=== PATIENT | male | born 1980 | race Caucasian/White ===

== ENCOUNTER 2018-06-16 08:36 | Emergency (ER) | payer BC, SELFPAY ==
--- NOTE | 2018-06-16 09:00 | EDPHYS ---
Physician Documentation [facility] Name: Lorne Madison Age: 37 yrs Sex: Male : 1980 Arrival Date: 06/16/2018 Time: 08:40 Bed 13 Private MD: None, None ED Physician Charles Evans HPI: 06/16 08:56 This 37 yrs old Male presents to ER via Unassigned with complaints of Flu nh Symptoms. 08:56 Onset: The symptoms/episode began/occurred 2 week(s) ago, and became persistent. nh Associated signs and symptoms: Pertinent positives: congestion, cough, fever, headache, sore throat. Modifying factors: The patient symptoms are alleviated by nothing, the patient symptoms are aggravated by nothing. The patient has not experienced similar symptoms in the past. The patient has not recently seen a physician. Historical: - Allergies: 08:46 Latex, Natural Rubber; rb1 08:46 Adhesives; rb1 - Home Meds: 08:46 None [Active]; rb1 - PMHx: 08:46 Anxiety; Bipolar disorder; Depression; rb1 - PSHx: 08:46 back; rb1 - Immunization history:: Adult Immunizations up to date. - Social history:: Smoking status: Patient/guardian denies using tobacco. - Ebola Screening: : Patient negative for fever greater than or equal to 101.5 degrees Fahrenheit, and additional compatible Ebola Virus Disease symptoms. ROS: 08:56 Eyes: Negative for injury, pain, redness, and discharge, Neck: Negative for injury, nh pain, and swelling, Cardiovascular: Negative for chest pain, palpitations, and edema, Abdomen/GI: Negative for abdominal pain, nausea, vomiting, diarrhea, and constipation, Back: Negative for injury and pain, : Negative for injury, bleeding, discharge, and swelling, MS/Extremity: Negative for injury and deformity, Skin: Negative for injury, rash, and discoloration, Neuro: Negative for headache, weakness, numbness, tingling, and seizure, Psych: Negative for depression, anxiety, suicide ideation, homicidal ideation, and hallucinations, Allergy/Immunology: Negative for hives, rash, and allergies, Endocrine: Negative for neck swelling, polydipsia, polyuria, polyphagia, and marked weight changes, Hematologic/Lymphatic: Negative for swollen nodes, abnormal bleeding, and unusual bruising. 08:56 Constitutional: Positive for body aches, chills, fatigue, fever. 08:56 ENT: Positive for nasal discharge, Negative for injury or acute deformity, drainage from ear(s), ear pain, foreign body sensation, Gum pain hearing loss, pulling at ears, Teeth pain tinnitus, difficulty swallowing, difficulty handling secretions. 08:56 Respiratory: Positive for cough, with green sputum. Exam: 08:56 Constitutional: This is a well developed, well nourished patient who is awake, alert, nh and in no acute distress. Head/Face: Normocephalic, atraumatic. Eyes: Pupils equal round and reactive to light, extra-ocular motions intact. Lids and lashes normal. Conjunctiva and sclera are non-icteric and not injected. Cornea within normal limits. Periorbital areas with no swelling, redness, or edema. ENT: Nares patent. No nasal discharge, no septal abnormalities noted. Tympanic membranes are normal and external auditory canals are clear. Oropharynx with no redness, swelling, or masses, exudates, or evidence of obstruction, uvula midline. Mucous membranes moist. Neck: Trachea midline, no thyromegaly or masses palpated, and no cervical lymphadenopathy. Supple, full range of motion without nuchal rigidity, or vertebral point tenderness. No Meningismus. Chest/axilla: Normal chest wall appearance and motion. Nontender with no deformity. No lesions are appreciated. Cardiovascular: Regular rate and rhythm with a normal S1 and S2. No gallops, murmurs, or rubs. Normal PMI, no JVD. No pulse deficits. Respiratory: Lungs have equal breath sounds bilaterally, clear to auscultation and percussion. No rales, rhonchi or wheezes noted. No increased work of breathing, no retractions or nasal flaring. Abdomen/GI: Soft, non-tender, with normal bowel sounds. No distension or tympany. No guarding or rebound. No evidence of tenderness throughout. Back: No spinal tenderness. No costovertebral tenderness. Full range of motion. Skin: Warm, dry with normal turgor. Normal color with no rashes, no lesions, and no evidence of cellulitis. MS/ Extremity: Pulses equal, no cyanosis. Neurovascular intact. Full, normal range of motion. Neuro: Awake and alert, GCS 15, oriented to person, place, time, and situation. Cranial nerves II-XII grossly intact. Motor strength 5/5 in all extremities. Sensory grossly intact. Cerebellar exam normal. Normal gait. Psych: Awake, alert, with orientation to person, place and time. Behavior, mood, and affect are within normal limits. Vital Signs: 08:46 BP 125 / 77; Pulse 86; Resp 17; Temp 97.9(O); Pulse Ox 96% on R/A; Weight 70.31 kg (R); rb1 Height 5 ft. 11 in. (180.34 cm) (R); Pain 4/10; 09:24 BP 118 / 78; Pulse 84; Resp 17; Pulse Ox 99% on R/A; rb1 08:46 Body Mass Index 21.62 (70.31 kg, 180.34 cm) rb1 MDM: 08:44 Patient medically screened. az 08:56 Data reviewed: vital signs, nurses notes, I have discussed the patient's az presentation/case with the attending Emergency Department Physician; and as a result, I will discharge patient. Counseling: I had a detailed discussion with the patient and/or guardian regarding: the historical points, exam findings, and any diagnostic results supporting the discharge/admit diagnosis, the need for outpatient follow up, to return to the emergency department if symptoms worsen or persist or if there are any questions or concerns that arise at home. Administered Medications: No medications were administered Disposition: 11:45 Co-signature as Attending Physician, Charles Evans MD. rn Disposition: 06/16/18 08:59 Discharged to Home. Impression: Acute frontal sinusitis. - Condition is Stable. - Prescriptions for Zithromax Z- Percy 250 mg Oral Tablet - take 1 tablet by ORAL route as directed for 5 days Day 1 - take two (2) tablets one time. Day 2, 3, 4 , 5 take one (1) tablet once daily.; 6 tablet. Medrol (Percy) 4 mg Oral Tablets, Dose Pack - take 1 tablet by ORAL route as directed - follow package instructions; 1 packet. - Medication Reconciliation Form, Thank You Letter, Antibiotic Education, Prescription Opioid Use form. - Follow up: Private Physician; When: 2 - 3 days. - Problem is new. - Symptoms are unchanged. Signatures: Bonnie Dang, TRANSPORTATION AGENT TRANSPORTATION AGENT az Evans, Charles, MD MD rn Mckeon, Swapna, RN RN rb1 Corrections: (The following items were deleted from the chart) 09:25 08:59 06/16/2018 08:59 Discharged to Home. Impression: Acute frontal sinusitis. rb1 Condition is Stable. Forms are Medication Reconciliation Form, Thank You Letter, Antibiotic Education, Prescription Opioid Use. Follow up: Private Physician; When: 2 - 3 days. Problem is new. Symptoms are unchanged. nh
--- NOTE | 2018-06-16 09:00 | ER ---
Nurse's Notes [facility] Name: Lorne Madison Age: 37 yrs Sex: Male : 1980 Arrival Date: 06/16/2018 Time: 08:40 Bed 13 Private MD: None, None Diagnosis: Acute frontal sinusitis Presentation: 06/16 08:46 Acuity: NELLIE 3 rb1 08:46 Presenting complaint: Patient states: pt. c/o headache and sinus congestion with yellow rb1 drainage. Transition of care: patient was not received from another setting of care. Onset of symptoms was June 14, 2018. 08:46 Method Of Arrival: Ambulatory rb1 09:06 Risk Assessment: Do you want to hurt yourself or someone else? Patient reports no tw2 desire to harm self or others. Initial Sepsis Screen: Does the patient meet any 2 criteria? No. Patient's initial sepsis screen is negative. Does the patient have a suspected source of infection? No. Patient's initial sepsis screen is negative. Care prior to arrival: None. Triage Assessment: 08:46 General: Appears in no apparent distress. comfortable, Behavior is calm, cooperative, rb1 Denies fever. Pain: Complains of pain in head Pain currently is 4 out of 10 on a pain scale. EENT: Reports nasal congestion nasal discharge that is yellow. Neuro: Level of Consciousness is awake, alert, obeys commands, Oriented to person, place, time, situation. Cardiovascular: Capillary refill < 3 seconds is brisk in bilateral fingers. Respiratory: Airway is patent Respiratory effort is even, unlabored, Respiratory pattern is regular, symmetrical. GI: Reports nausea. : No signs and/or symptoms were reported regarding the genitourinary system. Derm: Skin is pink, warm \T\ dry. Historical: - Allergies: 08:46 Latex, Natural Rubber; rb1 08:46 Adhesives; rb1 - Home Meds: 08:46 None [Active]; rb1 - PMHx: 08:46 Anxiety; Bipolar disorder; Depression; rb1 - PSHx: 08:46 back; rb1 - Immunization history:: Adult Immunizations up to date. - Social history:: Smoking status: Patient/guardian denies using tobacco. - Ebola Screening: : Patient negative for fever greater than or equal to 101.5 degrees Fahrenheit, and additional compatible Ebola Virus Disease symptoms. Screenin:06 Abuse screen: Denies threats or abuse. Nutritional screening: No deficits noted. tw2 Tuberculosis screening: No symptoms or risk factors identified. Fall Risk None identified. Assessment: 08:46 General: see triage assessment. rb1 Vital Signs: 08:46 BP 125 / 77; Pulse 86; Resp 17; Temp 97.9(O); Pulse Ox 96% on R/A; Weight 70.31 kg (R); rb1 Height 5 ft. 11 in. (180.34 cm) (R); Pain 4/10; 09:24 BP 118 / 78; Pulse 84; Resp 17; Pulse Ox 99% on R/A; rb1 08:46 Body Mass Index 21.62 (70.31 kg, 180.34 cm) rb1 ED Course: 08:40 Patient arrived in ED. sb2 08:40 None, None is Private Physician. sb2 08:44 Bon[facility] Dang FNP [facility]. [place] 08:44 Charles Evans MD is Attending Physician. ga 08:46 Swapna Mckeon, RN is Primary Nurse. rb1 08:46 Arm band placed on right wrist. rb1 08:47 Bed in low position. Call light in reach. Pulse ox on. NIBP on. tw2 09:22 Triage completed. rb1 09:23 No provider procedures requiring assistance completed. Patient did not have IV access rb1 during this emergency room visit. Administered Medications: No medications were administered Outcome: 08:59 Discharge ordered by . nh 09:23 Discharged to home ambulatory. rb1 09:23 Condition: stable 09:23 Discharge instructions given to patient, Instructed on discharge instructions, follow up and referral plans. medication usage, Demonstrated understanding of instructions, follow-up care, medications, Prescriptions given X 2. 09:25 Patient left the ED. rb1 Signatures: Bonnie Dang FNP [employer] [place] Swapna Mckeon, RN RN rb1 Zoraida Mills RN RN tw2 Meliza Merritt sb2
== END 2018-06-16 09:25 | disposition home or self-care (01) ==
LOC: ER 08:36
DX: J01.10 Acute frontal sinusitis, unspecified (principal); Z91.040 Latex allergy status; Z91.048 Other nonmedicinal substance allergy status
CPT/HCPCS: 99283

== ENCOUNTER 2018-08-17 21:58 | Emergency (ER) | payer SELFPAY ==
[2018-08-17] MEDS ORDERED: IBUPROFEN 400 MG TAB ONE (22:46)
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
== END 2018-08-17 23:33 | disposition home or self-care (01) ==
LOC: ER 21:58
DX: R07.89 Other chest pain (principal); V43.52XA Car driver injured in collision with other type car in traffic accident, initial encounter; Z91.040 Latex allergy status; Z91.048 Other nonmedicinal substance allergy status
CPT/HCPCS: 71045; 99284

== ENCOUNTER 2018-11-13 13:27 | Emergency (ER) | payer SELFPAY ==
[2018-11-13 14:40] LABS: Absolute Lymphocytes (CBC) 0.5 K/uL (0.7-4.9); Absolute Monocytes 0.5 K/uL (0.1-1.3); Absolute Neutrophil 7.2 K/uL (1.8-8.0); Basophils % 0.2 % (0-1.3); Eosinophils % 0.9 % (0-4.4); Hematocrit 46.7 % (39.6-49.0); Lymphocytes % 6.2 % (15.3-44.8); MPV 10.6 fL (7.6-11.3); Monocytes % 6.2 % (3.3-12.3); Protime INR 1.35; RBC Red Blood Cell Count 5.32 M/uL (4.33-5.43)
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
[2018-11-13 15:02] LABS: ALT/SGPT 17 U/L (12-78); AST/SGOT 13 U/L (15-37); Albumin 3.4 g/dL (3.4-5.0); Alkaline Phosphatase 89 U/L (45-117); BUN Blood Urea Nitrogen 29 mg/dL (7-18); Bicarbonate 28 mmol/L (21-32); Bilirubin Direct 0.2 mg/dL (0-0.2); Glucose Level 99 mg/dL (74-106); Lipase 70 U/L (73-393); Magnesium 2.2 mg/dL (1.8-2.4); NT PRO-BNP 104 pg/mL (<125); Potassium 3.7 mmol/L (3.5-5.1); Protein, Total 8.3 g/dL (6.4-8.2); Sodium Level 140 mmol/L (136-145); Troponin (Emerg Dept Use Only) < 0.02 ng/mL (0.0-0.045)
[2018-11-13 15:11] LABS: Blood Morphology Comment NOT SEEN (NOT SEEN); Platelet Estimate ADEQ; Urine White Blood Cell Casts OK
[2018-11-13] MEDS ORDERED: NA CHLORIDE 0.9% 1,000 ML ONE (15:11)
--- NOTE | 2018-11-13 15:21 | ER ---
Nurse's Notes [facility] Name: Lorne Madison Age: 38 yrs Sex: Male : 1980 Arrival Date: 11/13/2018 Time: 13:29 Bed 26 [facility] MD: Diagnosis: Weakness;Vomiting;Diarrhea, unspecified Presentation: 11/13 13:35 Presenting complaint: Patient states: generalized weakness, nausea, vomiting, and aa5 diarrhea since last night. Reports lower abd pain. Transition of care: patient was not received from another setting of care. 13:35 Method Of Arrival: Ambulatory aa5 13:35 Acuity: NELLIE 3 aa5 13:36 Onset of symptoms was October 2018. Risk Assessment: Do you want to hurt yourself or aa5 someone else? Patient reports no desire to harm self or others. Care prior to arrival: None. 14:13 Initial Sepsis Screen: Does the patient meet any 2 criteria? HR > 90 bpm. No. Patient's ls4 initial sepsis screen is negative. Does the patient have a suspected source of infection? No. Patient's initial sepsis screen is negative. Triage Assessment: 14:13 General: Appears uncomfortable, unkempt, Behavior is calm, cooperative, flat. Pain: ls4 Complains of pain in right lower quadrant and left lower quadrant Pain currently is 6 out of 10 on a pain scale. Historical: - Allergies: 13:36 Adhesives; aa5 13:36 Latex, Natural Rubber; aa5 - PMHx: 13:36 Anxiety; Bipolar disorder; Depression; aa5 - PSHx: 13:36 back; aa5 - Immunization history:: Flu vaccine is not up to date. - Social history:: Smoking status: Patient/guardian denies using tobacco. - Ebola Screening: : No symptoms or risks identified at this time. Screenin:17 Abuse screen: Denies threats or abuse. Denies injuries from another. Nutritional ls4 screening: No deficits noted. Tuberculosis screening: No symptoms or risk factors identified. Fall Risk No fall in past 12 months (0 pts). No secondary diagnosis (0 pts). IV access (20 points). Ambulatory Aid- None/Bed Rest/Nurse Assist (0 pts). Gait- Normal/Bed Rest/Wheelchair (0 pts) Mental Status- Oriented to own ability (0 pts). Assessment: 14:15 General: Appears uncomfortable, unkempt, Behavior is calm, cooperative, flat. Neuro: ls4 Level of Consciousness is awake, alert, obeys commands. Cardiovascular: Capillary refill < 3 seconds Patient's skin is warm and dry. Respiratory: Airway is patent Respiratory effort is even, unlabored, Respiratory pattern is regular. GI: Reports diarrhea. Derm: Skin is intact, Skin is dry, Skin is pale, Skin temperature is warm. Musculoskeletal: Circulation, motion, and sensation intact. Capillary refill < 3 seconds, Range of motion: intact in all extremities. 15:10 Reassessment: No changes from previously documented assessment. Patient and/or family ls4 updated on plan of care and expected duration. Pain level reassessed. Patient is alert, oriented x 3, equal unlabored respirations, skin warm/dry/pink. Vital Signs: 13:37 BP 144 / 80; Pulse 103; Resp 16 S; Temp 98.8(O); Pulse Ox 97% on R/A; Weight 65.32 kg aa5 (R); Height 5 ft. 10 in. (177.80 cm) (R); Pain 6/10; 14:41 BP 120 / 75; Pulse 97; Resp 21; Pulse Ox 98% ; jp3 15:11 BP 121 / 76; Pulse 92; Resp 16; Pulse Ox 99% on R/A; ls4 15:34 BP 122 / 70; Pulse 90; Resp 16; Temp 99.3; Pulse Ox 99% on R/A; Pain 0/10; ls4 13:37 Body Mass Index 20.66 (65.32 kg, 177.80 cm) aa5 ED Course: 13:29 Patient arrived in ED. rg4 13:35 Arm band placed on. aa5 13:36 Triage completed. aa5 13:43 Kris King MD is Attending Physician. [facility] 14:10 Jessica Randall, RN is Primary Nurse. ls4 14:10 Stool sample was collected. jp3 14:15 EKG done, by technician inventory specialist. reviewed by Kris King MD. sm3 14:17 Patient has correct armband on for positive identification. Bed in low position. Call ls4 light in reach. Side rails up X 1. personnel monitor on. Pulse ox on. NIBP on. Warm blanket given. Verbal reassurance given. 14:17 No provider procedures requiring assistance completed. ls4 14:20 Initial lab(s) drawn, by me, sent to lab. Inserted saline lock: 20 gauge in right jp3 antecubital area, using aseptic technique. Blood collected. 14:29 XRAY Chest (1 view) In Process Unspecified. EDMS 14:40 CDIFF Sent. jp3 14:40 Fecal Leukocyte Stain Sent. jp3 14:41 Stool Culture Sent. jp3 14:41 Lipase Sent. jp3 14:41 Basic Metabolic Panel Sent. jp3 14:41 Troponin (emerg Dept Use Only) Sent. jp3 14:41 PT-INR Sent. jp3 14:41 NT PRO-BNP Sent. jp3 14:41 Magnesium Sent. jp3 14:41 LFT's Sent. jp3 14:41 CBC with Diff Sent. jp3 15:38 Diet: Patient given juice. Tolerated well. jp3 15:50 IV discontinued, intact, bleeding controlled, No redness/swelling at site. Pressure ls4 dressing applied. Administered Medications: 14:15 Drug: NS 0.9% 1000 ml Route: IV; Rate: 1 bolus; Site: right antecubital; ls4 15:22 Drug: Zofran 4 mg Route: IVP; Site: right antecubital; ls4 15:49 Follow up: Response: Marked relief of symptoms ls4 Outcome: 15:15 Discharge ordered by . dinora 15:50 Discharged to home ambulatory. ls4 15:50 Condition: stable 15:50 Discharge instructions given to Instructed on Demonstrated understanding of instructions, follow-up care, medications, Prescriptions given X 3. 15:51 Patient left the ED. ls4 Signatures: Dispatcher [employer] EDGA Kris King MD MD cha Calderon, Audri, RN RN aa5 Anali Addison rg4 Karishma Dhaliwal 3 Willie Miramontes jp3 Jessica Randall, RN RN ls4 Corrections: (The following items were deleted from the chart) 13:37 13:35 Presenting complaint: Patient states: generalized weakness, nausea, vomiting, and aa5 diarrhea since last night. Denies pain aa5 16:15 15:34 Temp 99.3F; jp3 ls4
--- NOTE | 2018-11-13 15:21 | EDPHYS ---
Physician Documentation [facility] Name: Lorne Madison Age: 38 yrs Sex: Male : 1980 Arrival Date: 11/13/2018 Time: 13:29 Bed 26 Private MD: ED Physician Kris King HPI: 11/13 14:26 This 38 yrs old Male presents to ER via Ambulatory with complaints of dinora Weakness, Diarrhea. 14:26 This 38 yrs old Male presents to ER via Ambulatory with complaints of dinora Weakness, Diarrhea. 14:26 The patient presents to the emergency department with weakness of the entire body, dinoar generalized weakness. Onset: The symptoms/episode began/occurred 1 day(s) ago. 14:27 The patient presents to the emergency department with nausea, vomiting, diarrhea, that dinora is continuous. Possible causes: unknown. The symptoms are aggravated by food , The symptoms are alleviated by remaining still. Associated signs and symptoms: Pertinent positives: diarrhea, nausea, vomiting. Severity of symptoms: At their worst the symptoms were mild moderate in the emergency department the symptoms are unchanged. The patient has not experienced similar symptoms in the past. Historical: - Allergies: 13:36 Adhesives; aa5 13:36 Latex, Natural Rubber; aa5 - PMHx: 13:36 Anxiety; Bipolar disorder; Depression; aa5 - PSHx: 13:36 back; aa5 - Immunization history:: Flu vaccine is not up to date. - Social history:: Smoking status: Patient/guardian denies using tobacco. - Ebola Screening: : No symptoms or risks identified at this time. ROS: 14:27 Constitutional: Negative for fever, chills, and weight loss, Eyes: Negative for injury, dinora pain, redness, and discharge, ENT: Negative for injury, pain, and discharge, Neck: Negative for injury, pain, and swelling, Cardiovascular: Negative for chest pain, palpitations, and edema, Respiratory: Negative for shortness of breath, cough, wheezing, and pleuritic chest pain, Back: Negative for injury and pain, : Negative for injury, bleeding, discharge, and swelling, MS/Extremity: Negative for injury and deformity, Skin: Negative for injury, rash, and discoloration, Neuro: Negative for headache, weakness, numbness, tingling, and seizure, Psych: Negative for depression, anxiety, suicide ideation, homicidal ideation, and hallucinations, Allergy/Immunology: Negative for hives, rash, and allergies, Endocrine: Negative for neck swelling, polydipsia, polyuria, polyphagia, and marked weight changes, Hematologic/Lymphatic: Negative for swollen nodes, abnormal bleeding, and unusual bruising. 14:27 Abdomen/GI: Positive for nausea and vomiting, nausea, vomiting, diarrhea, of the right upper quadrant, left upper quadrant, right lower quadrant and left lower quadrant. Exam: 14:27 Constitutional: This is a well developed, well nourished patient who is awake, alert, dinora and in no acute distress. Head/Face: Normocephalic, atraumatic. Eyes: Pupils equal round and reactive to light, extra-ocular motions intact. Lids and lashes normal. Conjunctiva and sclera are non-icteric and not injected. Cornea within normal limits. Periorbital areas with no swelling, redness, or edema. ENT: Nares patent. No nasal discharge, no septal abnormalities noted. Tympanic membranes are normal and external auditory canals are clear. Oropharynx with no redness, swelling, or masses, exudates, or evidence of obstruction, uvula midline. Mucous membranes moist. Neck: Trachea midline, no thyromegaly or masses palpated, and no cervical lymphadenopathy. Supple, full range of motion without nuchal rigidity, or vertebral point tenderness. No Meningismus. Chest/axilla: Normal chest wall appearance and motion. Nontender with no deformity. No lesions are appreciated. Cardiovascular: Regular rate and rhythm with a normal S1 and S2. No gallops, murmurs, or rubs. Normal PMI, no JVD. No pulse deficits. Respiratory: Lungs have equal breath sounds bilaterally, clear to auscultation and percussion. No rales, rhonchi or wheezes noted. No increased work of breathing, no retractions or nasal flaring. Back: No spinal tenderness. No costovertebral tenderness. Full range of motion. Male : Normal genitalia with no discharge or lesions. Skin: Warm, dry with normal turgor. Normal color with no rashes, no lesions, and no evidence of cellulitis. MS/ Extremity: Pulses equal, no cyanosis. Neurovascular intact. Full, normal range of motion. Neuro: Awake and alert, GCS 15, oriented to person, place, time, and situation. Cranial nerves II-XII grossly intact. Motor strength 5/5 in all extremities. Sensory grossly intact. Cerebellar exam normal. Normal gait. Psych: Awake, alert, with orientation to person, place and time. Behavior, mood, and affect are within normal limits. 14:27 Abdomen/GI: Inspection: abdomen appears normal, Bowel sounds: normal, Palpation: mild abdominal tenderness, in the right upper quadrant, left upper quadrant, right lower quadrant and left lower quadrant, Liver: no appreciated palpable abnormalities, Hernia: not appreciated. Vital Signs: 13:37 BP 144 / 80; Pulse 103; Resp 16 S; Temp 98.8(O); Pulse Ox 97% on R/A; Weight 65.32 kg aa5 (R); Height 5 ft. 10 in. (177.80 cm) (R); Pain 6/10; 14:41 BP 120 / 75; Pulse 97; Resp 21; Pulse Ox 98% ; jp3 15:11 BP 121 / 76; Pulse 92; Resp 16; Pulse Ox 99% on R/A; ls4 15:34 BP 122 / 70; Pulse 90; Resp 16; Temp 99.3; Pulse Ox 99% on R/A; Pain 0/10; ls4 13:37 Body Mass Index 20.66 (65.32 kg, 177.80 cm) aa5 MDM: 13:44 Patient medically screened. [facility] 14:28 Data reviewed: vital signs, nurses notes, lab test result(s), EKG, radiologic studies, dinora plain films. 11/13 13:57 Order name: Basic Metabolic Panel; Complete Time: 15:05 [facility] 11/13 13:57 Order name: CBC with Diff; Complete Time: 15:13 [facility] 11/13 13:57 Order name: LFT's; Complete Time: 15:05 [facility] 11/13 13:57 Order name: Magnesium; Complete Time: 15:05 [facility] 11/13 13:57 Order name: NT PRO-BNP; Complete Time: 15:05 [facility] 11/13 13:57 Order name: PT-INR; Complete Time: 15:03 [facility] 11/13 13:57 Order name: Troponin (emerg Dept Use Only); Complete Time: 15:05 [facility] 11/13 13:57 Order name: XRAY Chest (1 view); Complete Time: 15:03 [facility] 11/13 13:57 Order name: Lipase; Complete Time: 15:05 [facility] 11/13 13:57 Order name: CDIFF [facility] 11/13 13:57 Order name: Stool Culture [facility] 11/13 13:57 Order name: Fecal Leukocyte Stain [facility] 11/13 14:42 Order name: CBC Smear Scan; Complete Time: 15:13 EDMS 11/13 13:57 Order name: EKG; Complete Time: 13:59 [facility] 11/13 13:57 Order name: Cardiac monitoring; Complete Time: 14:12 [facility] 11/13 13:57 Order name: EKG - Nurse/Tech; Complete Time: 14:12 [facility] 11/13 13:57 Order name: IV Saline Lock; Complete Time: 14:12 [facility] 11/13 13:57 Order name: Labs collected and sent; Complete Time: 14:41 [facility] 11/13 13:57 Order name: O2 Per Protocol; Complete Time: 14:12 [facility] 11/13 13:57 Order name: O2 Sat Monitoring; Complete Time: 14:12 [facility] 11/13 15:13 Order name: PO challenge; Complete Time: 15:49 [facility] Administered Medications: 14:15 Drug: NS 0.9% 1000 ml Route: IV; Rate: 1 bolus; Site: right antecubital; ls4 15:22 Drug: Zofran 4 mg Route: IVP; Site: right antecubital; ls4 15:49 Follow up: Response: Marked relief of symptoms ls4 Disposition: 11/13/18 15:15 Discharged to Home. Impression: Weakness, Vomiting, Diarrhea, unspecified. - Condition is Stable. - Discharge Instructions: Food Choices to Help Relieve Diarrhea, Adult, Nausea and Vomiting, Adult, Weakness, Fatigue, Nausea and Vomiting, Adult, [id number], Weakness, [id number]. - Prescriptions for Bentyl 20 mg Oral Tablet - take 1 tablet by ORAL route every 6 hours As needed; 20 tablet. Pepcid 20 mg Oral Tablet - take 1 tablet by ORAL route every 12 hours for 10 days; 20 tablet. Zofran 4 mg Oral Tablet - take 1 tablet by ORAL route every 12 hours As needed; 20 tablet. - Medication Reconciliation Form, Thank You Letter, Antibiotic Education, Prescription Opioid Use form. - Work release form (11/13/18 15:59). ls4 - Follow up: Private Physician; When: 2 - 3 days; Reason: Recheck today's complaints, Continuance of care, Re-evaluation by your physician. - Problem is new. - Symptoms have improved. Signatures: Dispatcher [employer] [facility] Kris King MD MD cha Calderon, Audri RN RN aa5 Jessica Randall RN RN ls4 Corrections: (The following items were deleted from the chart) 14:01 13:59 Occult Blood+PA.LAB.BRZ ordered. [facility] 15:51 15:15 11/13/2018 15:15 Discharged to Home. Impression: Weakness; Vomiting; Diarrhea, ls4 unspecified. Condition is Stable. Discharge Instructions: Food Choices to Help Relieve Diarrhea, Adult, Nausea and Vomiting, Adult, Weakness, Fatigue, Nausea and Vomiting, Adult, [id number], Weakness, [id number]. Prescriptions for Bentyl 20 mg Oral Tablet - take 1 tablet by ORAL route every 6 hours As needed; 20 tablet, Pepcid 20 mg Oral Tablet - take 1 tablet by ORAL route every 12 hours for 10 days; 20 tablet, Zofran 4 mg Oral Tablet - take 1 tablet by ORAL route every 12 hours As needed; 20 tablet. and Forms are Medication Reconciliation Form, Thank You Letter, Antibiotic Education, Prescription Opioid Use. Follow up: Private Physician; When: 2 - 3 days; Reason: Recheck today's complaints, Continuance of care, Re-evaluation by your physician. Problem is new. Symptoms have improved. dinora
[2018-11-13] MEDS ORDERED: ONDANSETRON 4 MG/2 ML VIAL ONE (15:34)
--- NOTE | 2018-11-14 11:30 | EKG ---
Test Date: 2018-11-13 Test Time: 14:11:28 Trash Man: ALEXIS MEASUREMENT RESULTS: Intervals: Rate: 101 CA: 128 QRSD: 90 QT: 332 QTc: 430 [place]: P: 51 CA: 128 QRS: 90 T: 65 INTERPRETIVE STATEMENTS: Sinus tachycardia Rightward axis Borderline ECG Compared to ECG 09/06/2014 01:37:07 Right-axis deviation now present Sinus rhythm no longer present Electronically Signed On 11-14-18 07:36:53 CDT by Will Bain
== END 2018-11-13 15:51 | disposition home or self-care (01) ==
LOC: ER 13:27
DX: R53.1 Weakness (principal); R11.10 Vomiting, unspecified; R19.7 Diarrhea, unspecified; F41.9 Anxiety disorder, unspecified; F31.9 Bipolar disorder, unspecified; F32.9 Major depressive disorder, single episode, unspecified
CPT/HCPCS: 36415; 71045; 80048; 80076; 83690; 83735; 83880; 84484; 85025; 85610; 87045; 87046; 87493; 89055; 93005; 96374; 99285; J2405; J7030

== ENCOUNTER 2019-07-02 06:31 | Emergency (ER) | payer SELFPAY ==
--- OUTSIDE RECORDS SUMMARY | 2019-07-02 06:33 | XMS REPORT ---
:1980 [facility] Address [address] [place] [address] Dr. Bravo [address] [place] [id number] Care Team Providers Name Role Phone Unavailable Unavailable Unavailable Problems This patient has no known problems. Allergies, Adverse Reactions, Alerts This patient has no known allergies or adverse reactions. Medications This patient has no known medications.
--- NOTE | 2019-07-02 06:51 | EDPHYS ---
Physician Documentation [facility] Name: Lorne Madison Age: 38 yrs Sex: Male : 1980 Arrival Date: 07/02/2019 Time: 06:34 Bed 8 Private MD: ED Physician Zacarias Harrell HPI: 07/02 07:52 This 38 yrs old Male presents to ER via Ambulatory with complaints of Knee snw Pain. 07:52 Onset: The symptoms/episode began/occurred suddenly, today, and became persistent. The snw patient has not experienced similar symptoms in the past. The patient has not recently seen a physician. states knees are sore from climbing so much as work. Historical: - Allergies: 06:44 Adhesives; ea 06:44 Latex, Natural Rubber; ea 06:44 Adhesives; aa1 06:44 Latex, Natural Rubber; aa1 - Home Meds: 06:44 None [Active]; aa1 - PMHx: 06:44 Depression; Bipolar disorder; Anxiety; ea 06:44 Anxiety; Bipolar disorder; Depression; aa1 - PSHx: 06:44 back; ea 06:44 back; aa1 - Immunization history:: Flu vaccine is not up to date. - Social history:: Smoking status: Patient/guardian denies using tobacco. - Ebola Screening: : No symptoms or risks identified at this time. ROS: 07:50 Constitutional: Negative for fever, chills, and weight loss, Eyes: Negative for injury, snw pain, redness, and discharge, ENT: Negative for injury, pain, and discharge, Neck: Negative for injury, pain, and swelling, Cardiovascular: Negative for chest pain, palpitations, and edema, Respiratory: Negative for shortness of breath, cough, wheezing, and pleuritic chest pain, Abdomen/GI: Negative for abdominal pain, nausea, vomiting, diarrhea, and constipation, Back: Negative for injury and pain, : Negative for injury, bleeding, discharge, and swelling, Skin: Negative for injury, rash, and discoloration, Neuro: Negative for headache, weakness, numbness, tingling, and seizure. 07:50 MS/extremity: Positive for bilateral lateral knee pain. Exam: 07:50 Constitutional: This is a well developed, well nourished patient who is awake, alert, snw and in no acute distress. Head/Face: Normocephalic, atraumatic. Eyes: Pupils equal round and reactive to light, extra-ocular motions intact. Lids and lashes normal. Conjunctiva and sclera are non-icteric and not injected. Cornea within normal limits. Periorbital areas with no swelling, redness, or edema. ENT: Nares patent. No nasal discharge, no septal abnormalities noted. Tympanic membranes are normal and external auditory canals are clear. Oropharynx with no redness, swelling, or masses, exudates, or evidence of obstruction, uvula midline. Mucous membranes moist. Neck: Trachea midline, no thyromegaly or masses palpated, and no cervical lymphadenopathy. Supple, full range of motion without nuchal rigidity, or vertebral point tenderness. No Meningismus. Chest/axilla: Normal chest wall appearance and motion. Nontender with no deformity. No lesions are appreciated. Cardiovascular: Regular rate and rhythm with a normal S1 and S2. No gallops, murmurs, or rubs. Normal PMI, no JVD. No pulse deficits. Respiratory: Lungs have equal breath sounds bilaterally, clear to auscultation and percussion. No rales, rhonchi or wheezes noted. No increased work of breathing, no retractions or nasal flaring. Abdomen/GI: Soft, non-tender, with normal bowel sounds. No distension or tympany. No guarding or rebound. No evidence of tenderness throughout. Back: No spinal tenderness. No costovertebral tenderness. Full range of motion. Skin: Warm, dry with normal turgor. Normal color with no rashes, no lesions, and no evidence of cellulitis. MS/ Extremity: Pulses equal, no cyanosis. Neurovascular intact. Full, normal range of motion. Neuro: Awake and alert, GCS 15, oriented to person, place, time, and situation. Cranial nerves II-XII grossly intact. Motor strength 5/5 in all extremities. Sensory grossly intact. Cerebellar exam normal. Normal gait. Psych: Awake, alert, with orientation to person, place and time. Behavior, mood, and affect are within normal limits. Vital Signs: 06:44 BP 128 / 67; Pulse 86; Resp 16; Temp 97.6; Pulse Ox 99% on R/A; Weight 72.57 kg; Height aa1 5 ft. 9 in. (175.26 cm); Pain 410; 06:44 Body Mass Index 23.63 (72.57 kg, 175.26 cm) aa1 MDM: 06:38 Patient medically screened. snw 07:51 Data reviewed: vital signs, nurses notes. Data interpreted: Pulse oximetry: on room air snw is 99 %. Interpretation: normal. Counseling: I had a detailed discussion with the patient and/or guardian regarding: the historical points, exam findings, and any diagnostic results supporting the discharge/admit diagnosis, the need for outpatient follow up, for definitive care, to return to the emergency department if symptoms worsen or persist or if there are any questions or concerns that arise at home. Special discussion: Based on the history and exam findings, there is no indication for further emergent testing or inpatient evaluation. I discussed with the patient/guardian the need to see the primary care provider for further evaluation of the symptoms. Administered Medications: 06:55 Not Given (pt reports he took 800 mg motrin prior to arrival): Motrin 400 mg PO once ea Disposition: 09:35 Co-signature as Attending Physician, Zacarias Harrell MD I agree with the assessment and tw4 plan of care. Disposition: 07/02/19 06:50 Discharged to Home. Impression: Pain in unspecified knee. - Condition is Stable. - Discharge Instructions: Joint Pain, Musculoskeletal Pain, Knee Pain. - Prescriptions for Mobic 7.5 mg Oral Tablet - take 1 tablet by ORAL route once daily take with food; 10 tablet. - Work release form, Medication Reconciliation Form, Thank You Letter, Antibiotic Education, Prescription Opioid Use form. - Follow up: Emergency Department; Reason: Worsening of condition. Follow up: Private Physician; When: 2 - 3 days; Reason: Recheck today's complaints, Continuance of care, Re-evaluation by your physician. Signatures: Bridget Sampson RN RN aa1 Erica Potter, SOUND PRINTER-C SOUND PRINTER-Bkw Mary Izquierdo RN RN ea Wadley, Terrence, MD MD tw4 Corrections: (The following items were deleted from the chart) 07:06 06:50 07/02/2019 06:50 Discharged to Home. Impression: Pain in unspecified knee. ea Condition is Stable. Forms are Medication Reconciliation Form, Thank You Letter, Antibiotic Education, Prescription Opioid Use. Follow up: Emergency Department; Reason: Worsening of condition. Follow up: Private Physician; When: 2 - 3 days; Reason: Recheck today's complaints, Continuance of care, Re-evaluation by your physician. snw
--- NOTE | 2019-07-02 06:51 | ER ---
Nurse's Notes [facility] Name: Lorne Madison Age: 38 yrs Sex: Male : 1980 Arrival Date: 07/02/2019 Time: 06:34 Bed 8 Private MD: Diagnosis: Pain in unspecified knee Presentation: 07/02 06:41 Presenting complaint: Patient states: trupti knee pain since yesterday. Denies injury. aa1 States, "I think it's from going up and down the steps at work so much.". Transition of care: patient was not received from another setting of care. Onset of symptoms was July 01, 2019. Risk Assessment: Do you want to hurt yourself or someone else? Patient reports no desire to harm self or others. Initial Sepsis Screen: Does the patient meet any 2 criteria? No. Patient's initial sepsis screen is negative. Does the patient have a suspected source of infection? No. Patient's initial sepsis screen is negative. Care prior to arrival: None. 06:41 Method Of Arrival: Ambulatory aa1 06:41 Acuity: NELLIE 5 aa1 06:43 Risk Assessment: Do you want to hurt yourself or someone else? Patient reports no ea desire to harm self or others. Initial Sepsis Screen: Does the patient meet any 2 criteria? No. Patient's initial sepsis screen is negative. Does the patient have a suspected source of infection? No. Patient's initial sepsis screen is negative. Care prior to arrival: None. 06:43 Acuity: NELLIE 5 ea Triage Assessment: 06:44 General: Appears in no apparent distress. comfortable, Behavior is calm, cooperative, aa1 appropriate for age. Historical: - Allergies: 06:44 Adhesives; ea 06:44 Latex, Natural Rubber; ea 06:44 Adhesives; aa1 06:44 Latex, Natural Rubber; aa1 - Home Meds: 06:44 None [Active]; aa1 - PMHx: 06:44 Depression; Bipolar disorder; Anxiety; ea 06:44 Anxiety; Bipolar disorder; Depression; aa1 - PSHx: 06:44 back; ea 06:44 back; aa1 - Immunization history:: Flu vaccine is not up to date. - Social history:: Smoking status: Patient/guardian denies using tobacco. - Ebola Screening: : No symptoms or risks identified at this time. Screenin:42 Abuse screen: Denies threats or abuse. Nutritional screening: No deficits noted. ea Tuberculosis screening: No symptoms or risk factors identified. Fall Risk None identified. Assessment: 06:41 General: Appears uncomfortable, Behavior is appropriate for age. Pain: Complains of ea pain in right knee and left knee. Neuro: Level of Consciousness is awake, alert, obeys commands, Oriented to person, place, time, situation. Cardiovascular: Patient's skin is warm and dry. Respiratory: Airway is patent Respiratory effort is even, unlabored, Respiratory pattern is regular, symmetrical. Derm: Skin is pink, warm \\T\\ dry. 07:04 Reassessment: Patient and/or family updated on plan of care and expected duration. Pain ea level reassessed. Patient is alert, oriented x 3, equal unlabored respirations, skin warm/dry/pink. Discharge instruction given to patient, verbalized the understanding of instruction. Pt left ED ambulatory. pt tolerating well. Vital Signs: 06:44 BP 128 / 67; Pulse 86; Resp 16; Temp 97.6; Pulse Ox 99% on R/A; Weight 72.57 kg; Height aa1 5 ft. 9 in. (175.26 cm); Pain 4/10; 06:44 Body Mass Index 23.63 (72.57 kg, 175.26 cm) aa1 ED Course: 06:34 Patient arrived in ED. ds1 06:37 Erica Potter FNP-C [facility]. snw 06:38 Zacarias Harrell MD is Attending Physician. snw 06:38 Petr Sanabria RN is Primary Nurse. rv 06:42 Patient has correct armband on for positive identification. Bed in low position. Call ea light in reach. 06:43 Triage completed. ea 06:43 Arm band placed on right wrist. Patient placed in an exam room, on a stretcher, on ea pulse oximetry. 07:05 No provider procedures requiring assistance completed. Patient did not have IV access ea during this emergency room visit. Administered Medications: 06:55 Not Given (pt reports he took 800 mg motrin prior to arrival): Motrin 400 mg PO once ea Outcome: 06:50 Discharge ordered by . snw 07:05 Discharged to home ambulatory. ea 07:05 Condition: stable 07:05 Discharge instructions given to patient, Instructed on discharge instructions, follow up and referral plans. medication usage, Demonstrated understanding of instructions, follow-up care, medications. 07:06 Patient left the ED. ea Signatures: Bridget Sampson, RN RN aa1 Erica Potter, HELP DESK ANALYST-C HELP DESK ANALYST-Csnw Myra Pettit ds1 Mary Izquierdo RN RN ea Petr Sanabria RN RN rv
[2019-07-02] MEDS ORDERED: IBUPROFEN 400 MG TAB ONE (06:54)
[2019-07-02 09:05] VITALS: BP 128/67; TEMP 97.6; O2SAT 99
== END 2019-07-02 07:06 | disposition home or self-care (01) ==
LOC: ER 06:31
DX: M25.561 Pain in right knee (principal); M25.562 Pain in left knee; Z91.040 Latex allergy status
CPT/HCPCS: 99283

== ENCOUNTER 2020-03-03 21:32 | Emergency (ER) | payer OTHER, SELFPAY ==
--- NOTE | 2020-03-03 22:09 | ER ---
Nurse's Notes [facility] Name: Lorne Madison Age: 39 yrs Sex: Male : 1980 Arrival Date: 03/03/2020 Time: 21:34 Bed 19 Private MD: Diagnosis: Urethritis and urethral syndrome Presentation: 03/03 21:38 Chief complaint: Patient states: Reports foul odor from penile area for 1 month. Brown, ll1 sore spot on tip of penis noticed today. No dysuria. No fever. Coronavirus screen: Client denies travel out of the [place] in the last 14 days. At this time, the client does not indicate any symptoms associated with coronavirus-19. Ebola Screen: Patient denies travel to an Ebola-affected area in the 21 days before illness onset. Initial Sepsis Screen: Does the patient meet any 2 criteria? No. Patient's initial sepsis screen is negative. Risk Assessment: Do you want to hurt yourself or someone else? Patient reports no desire to harm self or others. Onset of symptoms was January 31, 2020. 21:38 Method Of Arrival: Ambulatory ll1 21:38 Acuity: NELLIE 3 ll1 Historical: - Allergies: 21:40 Latex, Natural Rubber; ll1 21:40 Adhesives; ll1 - PMHx: 21:40 Anxiety; Bipolar disorder; Depression; scoliosis; ll1 - PSHx: 21:40 back; ll1 - Immunization history:: Flu vaccine is not up to date. - Social history:: Smoking status: Patient denies any tobacco usage or history of. Patient/guardian denies using alcohol, street drugs. Screenin:45 Abuse screen: Denies threats or abuse. Nutritional screening: No deficits noted. jb4 Tuberculosis screening: No symptoms or risk factors identified. Fall Risk None identified. Assessment: 21:45 General: Appears in no apparent distress. uncomfortable, Behavior is calm, cooperative, jb4 appropriate for age. Pain: Complains of pain in groin Pain does not radiate. Pain currently is 1 out of 10 on a pain scale. Quality of pain is described as burning, itching. Neuro: Level of Consciousness is awake, alert, obeys commands, Oriented to person, place, time, situation. Cardiovascular: Respiratory: Airway is patent Respiratory effort is even, unlabored, Respiratory pattern is regular, symmetrical. GI: No signs and/or symptoms were reported involving the gastrointestinal system. : No signs and/or symptoms were reported regarding the genitourinary system. EENT: No signs and/or symptoms were reported regarding the EENT system. Derm: Skin is intact, Skin is pink, warm \T\ dry. lesions noted to the head of the penis. Musculoskeletal: Circulation, motion, and sensation intact. Range of motion: intact in all extremities. 22:30 Reassessment: Patient appears in no apparent distress at this time. Patient and/or jb4 family updated on plan of care and expected duration. Pain level reassessed. Patient is alert, oriented x 3, equal unlabored respirations, skin warm/dry/pink. Pt verbalized understanding of d/c and follow up instructions. Denies questions or concerns. Ambulated out of ED with steady gait. Vital Signs: 21:38 BP 128 / 89; Pulse 83; Resp 17; Temp 98.1; Pulse Ox 98% ; Pain 1/10; ll1 ED Course: 21:34 Patient arrived in ED. cf2 21:39 Triage completed. ll1 21:40 Arm band placed on. ll1 21:45 Patient has correct armband on for positive identification. Bed in low position. Call jb4 light in reach. Side rails up X 1. 21:47 Ascencion Cheatham, ELSIE is Primary Nurse. jb4 22:06 Zacarias Harrell MD is Attending Physician. tw4 22:30 No provider procedures requiring assistance completed. Patient did not have IV access jb4 during this emergency room visit. Administered Medications: No medications were administered Outcome: 22:08 Discharge ordered by . tw4 22:30 Discharged to home ambulatory. jb4 22:30 Condition: stable 22:30 Discharge instructions given to patient, Instructed on discharge instructions, follow up and referral plans. medication usage, Demonstrated understanding of instructions, follow-up care, medications, Prescriptions given X 2. 22:37 Patient left the ED. mw2 Signatures: Ascencion Cheatham, RN ELSIE [facility] Zacarias Harrell MD MD 4 Daniel Davis mw2 Ly Strong 2 Sal Vicente RN RN ll1 Corrections: (The following items were deleted from the chart) 03/04 00:04 03/03 22:30 Reassessment: Patient appears in no apparent distress at this time. Patient jb4 and/or family updated on plan of care and expected duration. Pain level reassessed. Patient is alert, oriented x 3, equal unlabored respirations, skin warm/dry/pink. jb4
[2020-03-03 22:45] VITALS: BP 128/89; TEMP 98.1; O2SAT 98
--- NOTE | 2020-03-04 22:37 | EDPHYS ---
Physician Documentation [facility] Name: Lorne Madison Age: 39 yrs Sex: Male : 1980 Arrival Date: 03/03/2020 Time: 21:34 Bed 19 Private MD: ED Physician Zacarias Harrell HPI: 03/04 06:47 This 39 yrs old Male presents to ER via Ambulatory with complaints of Groin tw4 Pain. 06:47 The patient presents with urinary symptoms, dysuria. Onset: The symptoms/episode tw4 began/occurred yesterday. Modifying factors: The symptoms are alleviated by nothing, the symptoms are aggravated by nothing. Associated signs and symptoms: The patient has no apparent associated signs or symptoms. Severity of symptoms: At their worst the symptoms were moderate, in the emergency department the symptoms are unchanged. The patient has not experienced similar symptoms in the past. Historical: - Allergies: 03/03 21:40 Latex, Natural Rubber; ll1 21:40 Adhesives; ll1 - PMHx: 21:40 Anxiety; Bipolar disorder; Depression; scoliosis; ll1 - PSHx: 21:40 back; ll1 - Immunization history:: Flu vaccine is not up to date. - Social history:: Smoking status: Patient denies any tobacco usage or history of. Patient/guardian denies using alcohol, street drugs. ROS: 03/04 06:47 Constitutional: Negative for fever, chills, and weight loss, Eyes: Negative for injury, tw4 pain, redness, and discharge, Cardiovascular: Negative for chest pain, palpitations, and edema, Respiratory: Negative for shortness of breath, cough, wheezing, and pleuritic chest pain, Abdomen/GI: Negative for abdominal pain, nausea, vomiting, diarrhea, and constipation, Back: Negative for injury and pain. : Positive for penile discharge. Exam: 06:47 Constitutional: This is a well developed, well nourished patient who is awake, alert, tw4 and in no acute distress. Head/Face: Normocephalic, atraumatic. Chest/axilla: Normal chest wall appearance and motion. Nontender with no deformity. No lesions are appreciated. Cardiovascular: Regular rate and rhythm with a normal S1 and S2. No gallops, murmurs, or rubs. Normal PMI, no JVD. No pulse deficits. Respiratory: Lungs have equal breath sounds bilaterally, clear to auscultation and percussion. No rales, rhonchi or wheezes noted. No increased work of breathing, no retractions or nasal flaring. Abdomen/GI: Soft, non-tender, with normal bowel sounds. No distension or tympany. No guarding or rebound. No evidence of tenderness throughout. 06:47 : Male external genitalia: lesion, of the head of penis, painless, penile discharge, white. Vital Signs: 03/03 21:38 BP 128 / 89; Pulse 83; Resp 17; Temp 98.1; Pulse Ox 98% ; Pain 1/10; ll1 MDM: 22:08 Patient medically screened. tw4 03/04 06:47 Differential diagnosis: nonspecific abdominal pain, appendicitis, urinary retention, tw4 prostatitis, urethritis. Data reviewed: vital signs, nurses notes. Data interpreted: Pulse oximetry: Interpretation: normal. Counseling: I had a detailed discussion with the patient and/or guardian regarding: the historical points, exam findings, and any diagnostic results supporting the discharge/admit diagnosis, lab results. Special discussion: I discussed with the patient/guardian in detail that at this point there is no indication for admission to the hospital. It is understood, however, that if the symptoms persist or worsen the patient needs to return immediately for re-evaluation. Administered Medications: No medications were administered Disposition: 06:54 Chart complete. tw Disposition: 03/03/20 22:08 Discharged to Home. Impression: Urethritis and urethral syndrome. - Condition is Stable. - Discharge Instructions: Urethritis, Adult. - Prescriptions for Cipro 500 mg Oral Tablet - take 1 tablet by ORAL route one time for 1 day; 1 tablet. Zithromax 1 gram Oral Packet - take 1 packet by ORAL route one time as a single dose; 1 packet. - Medication Reconciliation Form, Thank You Letter, Antibiotic Education, Prescription Opioid Use form. - Follow up: Private Physician; When: Upon discharge from the Emergency Department; Reason: Recheck today's complaints, Continuance of care, Re-evaluation by your physician. - Problem is new. - Symptoms have improved. Signatures: Zacarias Harrell MD MD tw4 Daniel Davis 2 Sal Vicente RN RN ll1 Corrections: (The following items were deleted from the chart) 03/03 22:37 22:08 03/03/2020 22:08 Discharged to Home. Impression: Urethritis and urethral mw2 syndrome. Condition is Stable. Forms are Medication Reconciliation Form, Thank You Letter, Antibiotic Education, Prescription Opioid Use. Follow up: Private Physician; When: Upon discharge from the Emergency Department; Reason: Recheck today's complaints, Continuance of care, Re-evaluation by your physician. Problem is new. Symptoms have improved. tw4
== END 2020-03-03 22:37 | disposition home or self-care (01) ==
LOC: ER 21:32
DX: N34.3 Urethral syndrome, unspecified (principal); N34.2 Other urethritis; Z91.040 Latex allergy status; Z91.048 Other nonmedicinal substance allergy status
CPT/HCPCS: 99282

== ENCOUNTER 2020-03-10 17:21 | Emergency (ER) | payer OTHER, SELFPAY ==
--- OUTSIDE RECORDS SUMMARY | 2020-03-10 17:23 | XMS REPORT | Summary of Care ---
:1980 Author Organization [facility] - [facility] Address [address] [place] [address] Care Team Providers Name Role Phone Aditya Jean Primary Care Provider Reason for Visit Reason Comments Other penile discharge Auth/Cert Status Reason Specialty Diagnoses / Referred By Referred To Procedures Contact Contact Emergency Medicine Adc Em ergency Dept [address] [place] [address] Fax: Encounter Details Date Type Department Care Team Description 03/05/2020 Emergency ADC-Emergency Portillo, Cynthia R, Penile abr asion, Department EMNP initial encounter [address] [facility] [address] moya [address] [place] [address] (Primary Dx) [place] [address] [id number] [place], [place] [address] Allergies Active Allergy Reactions Severity Noted Date Comments Adhesive Rash 03/27/2016 Latex Rash 03/27/2016 documented as of this encounter (statuses as of 03/05/2020) Medications Medication Sig Dispensed Refills Start Date End Date Status divalproex (DEPAKOTE) Take 1,500 mg by 0 Active 500 mg EC mouth. tabletIndications: at Indications: at bedtime bedtime clindamycin 300 mg Take 1 capsule by 21 capsule 0 03/12/2019 Active capsuleIndications: mouth 3 (three) Chronic upper back times daily. pain, Abscess of upper back excluding scapular region ibuprofen 800 mg Take 1 tablet by 21 tablet 0 03/12/2019 Active tabletIndications: mouth every 8 Chronic upper back (eight) hours as pain, Abscess of upper needed for Pain back excluding (scale 4-6) or scapular region Temp > 38.5 C. mupirocin 2 % Apply to area(s) 22 g 0 03/05/2020 Active ointmentIndications: 3 (three) times Penile abrasion, daily. initial encounter documented as of this encounter (statuses as of 03/05/2020) Active Problems No known active problemsdocumented as of this encounter (statuses as of 03/05/2020) Social History Tobacco Use Types Packs/Day Years Used Date Never Assessed Sex Assigned at Date Recorded Not on file COVID-19 Exposure Response Date Recorded In the last month, have you been in contact with No / Unsure 03/05/2020 2:12 PM CDT someone who was confirmed or suspected to have Coronavirus / COVID-19? documented as of this encounter Last Filed Vital Signs Vital Sign Reading Time Taken Comments Blood Pressure 131/63 03/05/2020 2:14 PM CDT Pulse 88 03/05/2020 2:14 PM CDT Temperature 37.2 C (99 F) 03/05/2020 2:14 PM CDT Respiratory Rate 16 03/05/2020 2:14 PM CDT Oxygen Saturation 98% 03/05/2020 2:14 PM CDT Inhaled Oxygen Concentration - - Weight 75.3 kg (166 lb) 03/05/2020 2:14 PM CDT Height 177.8 cm (5' 10") 03/05/2020 2:14 PM CDT Body Mass Index 23.82 03/05/2020 2:14 PM CDT documented in this encounter Discharge Instructions Cynthia Pickard EMNP - 03/05/2020NO LIFE-THREATENING FINDINGS ON TODAY'S EXAM. SPECIAL INSTRUCTIONS: 1. Cleanse genital area well with soap and water 2. Apply ointment as directed 3. See attached information 4. Return for worsening condition FOLLOW-UP RECOMMENDATIONS: RECOMMEND FOLLOW-UP WITH A PRIMARY CARE PROVIDER OR SPECIALIST IN 2-5 DAYS, ESPECIALLY IF NO IMPROVEMENT IN SYMPTOMS. TO FOLLOW-UP WITHIN THE [facility], TRY THESE OPTIONS (CLINIC APPOINTMENTS AVAILABLE ON [id number] BASIS): 1. SCHEDULE AN APPOINTMENT ONLINE AT WWW.[facility] 2. OR CALL THE [facility] AT OR 3. OR CALL YOUR [facility] PHYSICIAN'S OFFICE DIRECTLY IF YOU ARE ALREADY AN ESTABLISHED [facility] PATIENT. OR, YOU MAY FOLLOW-UP WITH A PROVIDER OF YOUR CHOICE, SUCH : 1. A PHYSICIAN OF YOUR CHOICE 2. [facility], . LOCATIONS IN [facility] 3. [facility], [address] [place], [place]; [phone] RETURN TO ER FOR WORSENING OF SYMPTOMS. AttachmentsThe following attachments cannot be sent through Care Everywhere. Abrasions (Lithuanian)Mupirocin skin cream or ointment (Lithuanian)documented in this encounter ED Notes Ana Cristina Torrez RN - 03/05/2020 2:13 PM CDTPatient states: "I have discharge and a infection type smell and a spot on my area" Reports symptomssmelling started a month ago, I noticed the spot 2 days ago. Pmhx: none Reports being sexually active with girlfriend, been together for 8 months. No other partners. documented in this encounter Miscellaneous Notes ED Nurse Note - Pily Lujan RN - 03/05/2020 4:30 PM CDTPt given printed and verbal discharge instructions regarding penile abrasion, encouraged hydration, Prescriptions provided: Mupirocin ointment Pt verbalized understanding of instructions, pt awake alert oriented, resp reg unlabored, skin w/d, color appropriate for race, moves all ext well,pt encouraged to follow up with PCP. Advised to seek medical attention for new/prolonged/worsening of symptoms, Symptoms stable Awake, alert oriented, resp reg unlabored, skin w/d, pt leaving amb with steady gait, in no apparent distress, documented in this encounter Plan of Treatment Name Type Priority Associated Diagnoses Order S chedule [facility] Routine Penile abrasion, initial O NCE for 1 Occurrences AMPLIFIED ASSAY encounter starting until 0 Health Maintenance Due Date Last Done Comments VARICELLA VACCINES (1 of 2 - 10/27/1983 2-dose childhood series) Depression Screening 1994 DTaP,Tdap,and Td Vaccines (1 - 2001 Tdap) INFLUENZA VACCINE (#1) 2020 PNEUMOCOCCAL 0-64 YEARS COMBINED Aged Out No longer eligible based on SERIES patient's age to complete this topic documented as of this encounter Procedures Procedure Name Priority Date/Time Associated Diagnosis Comme nts URINALYSIS STAT 03/05/2020 3:10 PM Penile abrasion, Resu lts for this CDT initial encounter procedure are in the results section . documented in this encounter Results URINALYSIS (03/05/2020 3:10 PM CDT) Pathologist Sig nature APPEARANCE Hazy (A) Clear [facility] COLOR Yellow Yellow [facility] PH 6.0 4.8 - 8.0 [facility] SP GRAVITY 1.025 1.003 - 1.030 [facility] GLU U QUAL Normal Normal [facility] BLOOD Negative Negative [facility] KETONES Negative Negative [facility] PROTEIN Negative Negative [facility] UROBILIN 4.0 mg/dL (A) Normal [facility] BILIRUBIN Negative Negative [facility] NITRITE Negative Negative [facility] LEUK SAVANNAH Negative Negative [facility] RBC/HPF 1 0 - 3 HPF [facility] WBC/HPF 1 0 - 5 HPF [facility] BACTERIA Few (A) Negative [facility] MUCOUS Moderate (A) Negative LPF [facility] Specimen Urine - URINE, CLEAN CATCH Performing Organization Address City/State/Zipcode Phone Number [facility] CLIA: [id number] [place] [address] documented in this encounter Visit Diagnoses Diagnosis Penile abrasion, initial encounter - Jane chew documented in this encounter
--- OUTSIDE RECORDS SUMMARY | 2020-03-10 17:23 | XMS REPORT | Summary of Care ---
:1980 Author Organization [facility] - Health Address [address] [place] [address] Care Team Providers Name Role Phone Pcp, Does Not Have A Primary Care Provider Encounter Details Date Type Department Care Team Description 03/05/2020 Orders Only [facility] Doctor Unassigned, No [address] [facility] [place] [address] [address] [place] [address] Allergies Active Allergy Reactions Severity Noted Date [...] or scapular region Temp > 38.5 C. documented as of this encounter (statuses as of 03/05/2020) Active Problems No known active problemsdocumented as of this encounter (statuses as of 03/05/2020) Social History Tobacco Use Types Packs/Day Years Used Date Never Assessed Sex Assigned at Date Recorded Not on file documented as of this encounter Last Filed Vital Signs Not on filedocumented in this encounter Plan of Treatment Health Maintenance Due Date Last Done Comments VARICELLA VACCINES (1 of 2 - 10/27/1983 2-dose childhood series) Depression Screening 1994 DTaP,Tdap,and Td Vaccines (1 - 2001 Tdap) INFLUENZA VACCINE (#1) 2020 PNEUMOCOCCAL 0-64 YEARS COMBINED Aged Out No longer eligible based on SERIES patient's age to complete this topic documented as of this encounter Procedures Procedure Name Priority Date/Time Associated Diagnosis Comme nts CONSENT/REFUSAL FOR Routine 03/05/2020 2:07 PM CDT DIAGNOSIS AND TREATMENT documented in this encounter Results Not on filedocumented in this encounter
--- OUTSIDE RECORDS SUMMARY | 2020-03-10 17:23 | XMS REPORT | Continuity of Care Document ---
:1980 Author Organization [facility] t Address [address] [place] [address] Care Team Providers Name Role Phone Lindsey HARLEY Rik Attending Clinician Doctor Unassigned, Name Attending Clinician Unavailable Problems This patient has no known problems. Allergies, Adverse Reactions, Alerts This patient has no known allergies or adverse reactions. Medications This patient has no known medications. Procedures This patient has no known procedures. Encounters Start End Encounter Admission Attending Care Care Encounter Source Date/Time Date/Time Type Type Clinicians Facility Department ID 2020-03-05 2020-03-05 Emergency [facility] [id number] 14:19:00 16:31:00 Cynthia Zepeda [id number] [place] [id number] [place] [id number] 2020-03-05 2020-03-05 Orders Doctor JAY JAY [id number] 00:00:00 00:00:00 Only UnassignedLUDIN [id number] [place] [id number] Results This patient has no known results.
== END 2020-03-10 18:12 | disposition left against medical advice (07) ==
LOC: ER 17:21
DX: Z02.9 Encounter for administrative examinations, unspecified (principal)

== ENCOUNTER 2020-03-13 07:58 | Emergency (ER) | payer SELFPAY ==
--- OUTSIDE RECORDS SUMMARY | 2020-03-13 08:00 | XMS REPORT | Continuity of Care Document ---
:1980 Author Organization [facility] t Address [address] [place] [place] [address] Care Team Providers Name Role Phone Mor CHAMBERLAIN Attending Clinician Rik Spencer Attending Clinician Doctor Unassigned, Name Attending Clinician Unavailable Problems This patient has no known problems. Allergies, Adverse Reactions, Alerts This patient has no known allergies or adverse reactions. Medications This patient has no known medications. Procedures This patient has no known procedures. Encounters Start End Encounter Admission Attending Care Care Encounter Source Date/Time Date/Time Type Type Clinicians Facility Department ID 2020-03-11 2020-03-11 [facility] [id number] 14:22:00 17:14:00 Heriberto Zepeda [id number] [place] [id number] [place] [address] [id number] 2020-03-05 2020-03-05 [facility] [id number] 14:19:00 16:31:00 Cynthia Zepeda [id number] [place] [id number] [place] [address] [id number] 2020-03-05 2020-03-05 Orders Doctor GOYAL [id number] 00:00:00 00:00:00 Only UnassLUDIN espinosa [id number] [place] [facility] [id number] Results This patient has no known results.
--- OUTSIDE RECORDS SUMMARY | 2020-03-13 08:01 | XMS REPORT | Summary of Care ---
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 initial encounter mupirocin 2 % Apply to area(s) 22 g 0 03/11/2020 Active ointmentIndications: 3 (three) times Folliculitis, Taenia daily. infection clotrimazole 1 % Apply to area(s) 30 g 0 03/11/2020 Active topical 2 (two) times creamIndications: daily. Folliculitis, Taenia infection documented as of this encounter (statuses as of 03/11/2020) Active Problems No known active problemsdocumented as of this encounter (statuses as of 03/11/2020) Social History Tobacco Use Types Packs/Day Years Used Date Never Assessed Sex Assigned at Date Recorded Not on file COVID-19 Exposure Response Date Recorded In the last month, have you been in contact with No / Unsure 03/11/2020 4:38 PM CDT someone who was confirmed or suspected to have Coronavirus / COVID-19? documented as of this encounter Last Filed Vital Signs Vital Sign Reading Time Taken Comments Blood Pressure 120/66 03/11/2020 4:19 PM CDT Pulse 89 03/11/2020 4:19 PM CDT Temperature 36.6 C (97.8 F) 03/11/2020 2:21 PM CDT Respiratory Rate 20 03/11/2020 4:19 PM CDT Oxygen Saturation 100% 03/11/2020 4:19 PM CDT Inhaled Oxygen Concentration - - Weight 75.3 kg (166 lb) 03/11/2020 2:21 PM CDT Height - - Body Mass Index 23.82 03/05/2020 2:14 PM CDT documented in this encounter Discharge Instructions Heriberto Hays FNP - 03/11/2020DIAGNOSIS 1. Folliculitis 2. Possible tenia infection of left inner thigh NO LIFE-THREATENING FINDINGS ON TODAY'S EXAM. PROCEDURES IN THE ER TODAY: None MEDICATIONS ADMINISTERED IN THE ER TODAY: None YOUR PRESCRIPTIONS AND [id number] MEDICATION RECOMMENDATIONS: Mupirocin Clotrimazole SPECIAL CARE INSTRUCTIONS: keep the area clean and dry Wear loose fitting cotton underwear to avoid skin irritation FOLLOW-UP RECOMMENDATIONS: RECOMMEND FOLLOW-UP WITH A PRIMARY CARE PROVIDER IN 2-5 DAYS, ESPECIALLY IF NO IMPROVEMENT IN SYMPTOMS. TO FOLLOW-UP WITHIN THE [facility], TRY THESE OPTIONS (CLINIC APPOINTMENTS AVAILABLE ON [id number] BASIS): 1. SCHEDULE AN APPOINTMENT ONLINE AT WWW.[facility] 2. OR CALL THE [facility]ESS [facility] AT OR 3. OR CALL YOUR [facility] PHYSICIAN'S OFFICE DIRECTLY IF YOU ARE ALREADY AN ESTABLISHED [facility] PATIENT. OR, YOU MAY FOLLOW-UP WITH A PROVIDER OF YOUR CHOICE, SUCH : 1. A PHYSICIAN OF YOUR CHOICE 2. [facility], . LOCATIONS IN [facility] 3. [facility], [address] [place] [address]; [phone] RETURN TO ER FOR WORSENING OF SYMPTOMS. AttachmentsThe following attachments cannot be sent through Care Everywhere. Folliculitis (Maltese)Folliculitis, Understanding (Maltese)documented in this encounter ED Notes Sarah Hernández RN - 03/11/2020 2:19 PM CDT39 year old male coming to the ER for left upper thigh pain. Possible abscess. Patient reports drainage and smell coming from upper thigh. On the left leg. Onset today. documented in this encounter Miscellaneous Notes ED Nurse Note - Sarah Hernández RN - 03/11/2020 4:19 PM CDTDischarge instructions/prscribed medications reviewed with pt with verbalized understanding. NAD, respirations even and unlabored, AOX4, ambulatory out of ED with a steady gait. documented in this encounter Plan of Treatment Health Maintenance Due Date Last Done Comments VARICELLA VACCINES (1 of 2 - 10/27/1983 2-dose childhood series) Depression Screening 1994 DTaP,Tdap,and Td Vaccines (1 - 2001 Tdap) INFLUENZA VACCINE (#1) 2020 PNEUMOCOCCAL 0-64 YEARS COMBINED Aged Out No longer eligible based on SERIES patient's age to complete this topic documented as of this encounter Results Not on filedocumented in this encounter Visit Diagnoses Diagnosis Folliculitis - Primary Other specified disease of hair and hair follicles Taenia infection Taeniasis, unspecified documented in this encounter
[2020-03-13] MEDS ORDERED: AMOX/K CLAV 875 MG TAB ONE (09:00)
[2020-03-13] MEDS ORDERED: TETANUS & DIPHTHERIA TOX,ADULT 0.5 ML VIAL ONE (09:00)
[2020-03-13] MEDS ORDERED: HYDROCODONE/APAP 5/325 MG TAB ONE (09:13)
[2020-03-13] MEDS ORDERED: LIDOCAINE 1% MPF 5 ML VIAL ONE (10:11)
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
[2020-03-13 11:21] VITALS: BP 111/78; TEMP 97.8; O2SAT 99
== END 2020-03-13 11:15 | disposition home or self-care (01) ==
LOC: ER 07:58
PROC: 0HQ3XZZ Repair Left Ear Skin, External Approach (ICD-10-PCS; principal; 2020-03-13)
DX: S01.312A Laceration without foreign body of left ear, initial encounter (principal); W50.3XXA Accidental bite by another person, initial encounter; Y93.89 Activity, other specified; Y92.9 Unspecified place or not applicable; Z91.040 Latex allergy status; Z91.048 Other nonmedicinal substance allergy status
CPT/HCPCS: 90471; 90714; 99284

== ENCOUNTER 2020-03-18 21:03 | Emergency (ER) | payer SELFPAY ==
--- NOTE | 2020-03-18 23:41 | ER ---
Nurse's Notes [facility] Name: Lorne Madison Age: 39 yrs Sex: Male : 1980 Arrival Date: 03/18/2020 Time: 21:04 Bed 30 Private MD: Diagnosis: Encounter for removal of sutures Presentation: 03/18 21:31 Chief complaint: Patient states: Here for left ear suture removal. No fever at home. ll1 Slight redness noted. Coronavirus screen: Client denies travel out of the [place] in the last 14 days. At this time, the client does not indicate any symptoms associated with coronavirus-19. Ebola Screen: Patient denies travel to an Ebola-affected area in the 21 days before illness onset. Initial Sepsis Screen: Does the patient meet any 2 criteria? No. Patient's initial sepsis screen is negative. Risk Assessment: Do you want to hurt yourself or someone else? Patient reports no desire to harm self or others. Onset of symptoms is unknown. 21:31 Method Of Arrival: Ambulatory ll1 21:31 Acuity: NELLIE 4 ll1 Historical: - Allergies: 21:33 Adhesives; ll1 21:33 Latex, Natural Rubber; ll1 - PMHx: 21:33 Anxiety; Bipolar disorder; Depression; scoliosis; ll1 - Immunization history:: Last tetanus immunization: up to date Flu vaccine is not up to date. - Social history:: Smoking status: Patient denies any tobacco usage or history of. Screenin:56 Abuse screen: Denies threats or abuse. Denies injuries from another. Nutritional aj1 screening: No deficits noted. Tuberculosis screening: No symptoms or risk factors identified. 23:51 Fall Risk None identified. aj1 Assessment: 21:56 General: Appears in no apparent distress. comfortable, Behavior is calm, cooperative, aj1 appropriate for age. Pain: Denies pain. Neuro: Level of Consciousness is awake, alert, obeys commands. Cardiovascular: Patient's skin is warm and dry. Respiratory: Airway is patent Respiratory effort is even, unlabored, Respiratory pattern is regular, symmetrical. GI: No signs and/or symptoms were reported involving the gastrointestinal system. : No signs and/or symptoms were reported regarding the genitourinary system. EENT: sutures noted to left ear. Patient is here for suture removal. Derm: No signs and/or symptoms reported regarding the dermatologic system. Skin is pink, warm \T\ dry. normal. Musculoskeletal: No signs and/or symptoms reported regarding the musculoskeletal system. Circulation, motion, and sensation intact. 23:00 Reassessment: Patient appears in no apparent distress at this time. No changes from aj1 previously documented assessment. Patient and/or family updated on plan of care and expected duration. Pain level reassessed. Patient is alert, oriented x 3, equal unlabored respirations, skin warm/dry/pink. 23:51 Reassessment: Patient appears in no apparent distress at this time. No changes from aj1 previously documented assessment. Patient and/or family updated on plan of care and expected duration. Pain level reassessed. Patient is alert, oriented x 3, equal unlabored respirations, skin warm/dry/pink. Vital Signs: 21:31 BP 117 / 75; Pulse 80; Resp 17; Temp 98.4; Pulse Ox 99% ; Weight 5 kg; Height 5 ft. 10 ll1 in. (177.80 cm); Pain 0/10; 21:31 Body Mass Index 1.58 (5.00 kg, 177.80 cm) ll1 ED Course: 21:04 Patient arrived in ED. cl3 21:33 Triage completed. ll1 21:33 Arm band placed on Patient placed in an exam room, on a stretcher. ll1 21:56 Sara Gerard, RN is Primary Nurse. aj1 21:56 Patient has correct armband on for positive identification. Bed in low position. Call aj1 light in reach. 21:56 No provider procedures requiring assistance completed. aj1 22:10 Zacarias Harrell MD is Attending Physician. tw4 23:51 Patient did not have IV access during this emergency room visit. aj1 Administered Medications: No medications were administered Outcome: 23:40 Discharge ordered by . tw4 23:51 Discharged to home ambulatory. aj1 23:51 Condition: good 23:51 Discharge instructions given to patient, Instructed on discharge instructions, follow up and referral plans. Demonstrated understanding of instructions, follow-up care. 23:51 Patient left the ED. aj1 Signatures: Sara Gerard, RN RN aj1 Zacarias Harrell MD MD 4 Didier Vicente 3 Sal Vicente RN RN [facility]
--- NOTE | 2020-03-19 23:52 | EDPHYS ---
Physician Documentation [facility] Name: Lorne Madison Age: 39 yrs Sex: Male : 1980 Arrival Date: 03/18/2020 Time: 21:04 Bed 30 Private MD: ED Physician Zacarias Harrell HPI: 03/19 06:07 This 39 yrs old Male presents to ER via Ambulatory with complaints of Ear tw4 Pain. 06:12 This 39 yrs old Male presents to ER via Ambulatory with complaints of wound tw4 recheck. 06:12 Patient presents to ED for recheck of: laceration. The affected area is on the left tw4 ear. Previous treatment: The patient was initially treated 7 day(s) ago. Progress: The patient reports excellent improvement in the affected area. There has been resolution, improvement, or non-development of any drainage, fever, pain, redness or swelling. The patient has not experienced similar symptoms in the past. Historical: - Allergies: 03/18 21:33 Adhesives; ll1 21:33 Latex, Natural Rubber; ll1 - PMHx: 21:33 Anxiety; Bipolar disorder; Depression; scoliosis; ll1 - Immunization history:: Last tetanus immunization: up to date Flu vaccine is not up to date. - Social history:: Smoking status: Patient denies any tobacco usage or history of. ROS: 03/19 06:12 Constitutional: Negative for fever, chills, and weight loss, Eyes: Negative for injury, tw4 pain, redness, and discharge, Cardiovascular: Negative for chest pain, palpitations, and edema, Respiratory: Negative for shortness of breath, cough, wheezing, and pleuritic chest pain, Abdomen/GI: Negative for abdominal pain, nausea, vomiting, diarrhea, and constipation, Back: Negative for injury and pain, MS/Extremity: Negative for injury and deformity. Skin: Positive for laceration(s). Exam: 06:12 Skin: Wound recheck: Suture laceration closure: the wound is healing well, the edges tw4 are well approximated, no evidence of dehiscence, no drainage, no erythema, no swelling. Vital Signs: 03/18 21:31 BP 117 / 75; Pulse 80; Resp 17; Temp 98.4; Pulse Ox 99% ; Weight 5 kg; Height 5 ft. 10 ll1 in. (177.80 cm); Pain 0/10; 21:31 Body Mass Index 1.58 (5.00 kg, 177.80 cm) ll1 Procedures: 03/19 06:12 Suture/Staple removal: Removed 1 sutures, from left ear, site appears well healed, tw4 dressed with Neosporin, Patient tolerated well. MDM: 03/18 22:10 Patient medically screened. tw4 03/19 06:12 Data reviewed: vital signs, nurses notes. Data interpreted: Pulse oximetry: tw4 Interpretation: normal. Counseling: I had a detailed discussion with the patient and/or guardian regarding: the historical points, exam findings, and any diagnostic results supporting the discharge/admit diagnosis. Special discussion: I discussed with the patient/guardian in detail that at this point there is no indication for admission to the hospital. It is understood, however, that if the symptoms persist or worsen the patient needs to return immediately for re-evaluation. Administered Medications: No medications were administered Disposition: 03/18/20 23:40 Discharged to Home. Impression: Encounter for removal of sutures. - Condition is Stable. - Discharge Instructions: Stitches, Kaylyn, or Adhesive Wound Closure, Suture Removal, Care After, Wound Closure Removal. - Medication Reconciliation Form, Thank You Letter, Antibiotic Education, Prescription Opioid Use form. - Follow up: Private Physician; When: Upon discharge from the Emergency Department; Reason: Recheck today's complaints, Continuance of care, Re-evaluation by your physician. - Problem is new. - Symptoms have improved. Signatures: Sara Gerard RN RN aj1 Zacarias Harrell MD MD tw4 Sal Vicente RN RN ll1 Corrections: (The following items were deleted from the chart) 03/18 23:51 23:40 03/18/2020 23:40 Discharged to Home. Impression: Encounter for removal of aj1 sutures. Condition is Stable. Forms are Medication Reconciliation Form, Thank You Letter, Antibiotic Education, Prescription Opioid Use. Follow up: Private Physician; When: Upon discharge from the Emergency Department; Reason: Recheck today's complaints, Continuance of care, Re-evaluation by your physician. Problem is new. Symptoms have improved. tw4
== END 2020-03-18 23:51 | disposition home or self-care (01) ==
LOC: ER 21:03
DX: Z48.02 Encounter for removal of sutures (principal)
CPT/HCPCS: 99281

== ENCOUNTER 2020-04-05 00:39 | Emergency (ER) | payer SELFPAY ==
--- OUTSIDE RECORDS SUMMARY | 2020-04-05 00:41 | XMS REPORT | Continuity of Care Document ---
:1980 Author Organization [facility] t Address [address] [place] [address] Care Team Providers Name Role Phone Mor [...] Clinicians Facility Department ID 2020-03-11 2020-03-11 [facility] [id number] 14:22:00 17:14:00 Heriberto Zepeda [id number] [place] [id number] [place] [address] [id number] 2020-03-05 2020-03-05 [facility] [id number] 14:19:00 16:31:00 Cynthia Zepeda [id number] [place] [id number] [place] [address] [id number] [id number] 2020-03-05 2020-03-05 Orders Doctor GOYAL [id number] 00:00:00 00:00:00 Only UnassLUDIN espinosa [id number] [place] [facility] [id number] Results This patient has no known results.
[2020-04-05 01:12] LABS: Urine Blood NEGATIVE (NEG); Urine Glucose NEGATIVE (NEG); Urine Protein NEGATIVE (NEG); Urine Specific Gravity >1.030 (1.005-1.030); Urine pH 5.5 (5.0-7.0)
--- NOTE | 2020-04-05 01:57 | EDPHYS ---
Physician Documentation [facility] Name: Lorne Madison Age: 39 yrs Sex: Male : 1980 Arrival Date: 04/05/2020 Time: 00:40 Bed 4 Private MD: Lorne Jean E ED Physician Zacarias Harrell HPI: 04/05 06:22 This 39 yrs old Male presents to ER via Ambulatory with complaints of Groin tw4 Pain. 06:22 The patient presents with urinary symptoms, dysuria. The patient presents with scrotal tw4 pain, of both sides. Onset: The symptoms/episode began/occurred today. Modifying factors: The symptoms are alleviated by nothing, the symptoms are aggravated by nothing. Associated signs and symptoms: The patient has no apparent associated signs or symptoms. Severity of symptoms: At their worst the symptoms were mild, in the emergency department the symptoms are unchanged. pain has resolved. Historical: - Allergies: 00:51 Adhesives; rv 00:51 Latex, Natural Rubber; rv - Home Meds: 00:51 None [Active]; rv - PMHx: 00:51 Anxiety; Bipolar disorder; Depression; scoliosis; rv - PSHx: 00:51 None; rv - Immunization history:: Adult Immunizations up to date. - Social history:: Smoking status: Patient denies any tobacco usage or history of. ROS: 06:22 Constitutional: Negative for fever, chills, and weight loss, Eyes: Negative for injury, tw4 pain, redness, and discharge, Cardiovascular: Negative for chest pain, palpitations, and edema, Respiratory: Negative for shortness of breath, cough, wheezing, and pleuritic chest pain, Abdomen/GI: Negative for abdominal pain, nausea, vomiting, diarrhea, and constipation, Back: Negative for injury and pain, MS/Extremity: Negative for injury and deformity. 06:22 : Positive for urinary symptoms, burning with urination. Exam: 06:22 Constitutional: This is a well developed, well nourished patient who is awake, alert, tw4 and in no acute distress. Head/Face: Normocephalic, atraumatic. Chest/axilla: Normal chest wall appearance and motion. Nontender with no deformity. No lesions are appreciated. Cardiovascular: Regular rate and rhythm with a normal S1 and S2. No gallops, murmurs, or rubs. Normal PMI, no JVD. No pulse deficits. Respiratory: Lungs have equal breath sounds bilaterally, clear to auscultation and percussion. No rales, rhonchi or wheezes noted. No increased work of breathing, no retractions or nasal flaring. Abdomen/GI: Soft, non-tender, with normal bowel sounds. No distension or tympany. No guarding or rebound. No evidence of tenderness throughout. 06:22 : Male external genitalia: normal, no abrasion, no discharge, no erythema, no injury, no swelling, no tenderness, no evidence of ulceration. Vital Signs: 00:49 BP 130 / 68; Pulse 97; Resp 17; Temp 98.3; Pulse Ox 100% ; Weight 75.3 kg; Height 5 ft. rv 9 in. (175.26 cm); 00:49 Body Mass Index 24.51 (75.30 kg, 175.26 cm) rv MDM: 01:10 Patient medically screened. tw4 06:23 Differential diagnosis: nonspecific abdominal pain, UTI. Data reviewed: vital signs, tw4 nurses notes. Data interpreted: Pulse oximetry: Interpretation: normal. Counseling: I had a detailed discussion with the patient and/or guardian regarding: the historical points, exam findings, and any diagnostic results supporting the discharge/admit diagnosis, lab results. Special discussion: I discussed with the patient/guardian in detail that at this point there is no indication for admission to the hospital. It is understood, however, that if the symptoms persist or worsen the patient needs to return immediately for re-evaluation. 04/05 00:57 Order name: Urine Dipstick--Ancillary (enter results); Complete Time: 01:21 ds4 04/05 01:21 Interpretation: Normal except: USPGR >1.030. tw4 04/05 00:55 Order name: Urine Dipstick-Ancillary (obtain specimen); Complete Time: 00:56 rv Administered Medications: No medications were administered Disposition: 04/05/20 01:57 Discharged to Home. Impression: Urethritis and urethral syndrome. - Condition is Stable. - Discharge Instructions: Urethritis, Adult. - Prescriptions for Doxycycline Hyclate 100 mg Oral Tablet - take 1 tablet by ORAL route every 12 hours; 20 tablet. - Medication Reconciliation Form, Thank You Letter, Antibiotic Education, Prescription Opioid Use form. - Follow up: Lorne Jean MD; When: Upon discharge from the Emergency Department; Reason: Recheck today's complaints, Continuance of care, Re-evaluation by your physician. - Problem is new. - Symptoms are unchanged. Signatures: Dispatcher [employer] Zacarias Paulson MD MD tw4 Petr Sanabria, RN RN rv Corrections: (The following items were deleted from the chart) 02:03 01:57 04/05/2020 01:57 Discharged to Home. Impression: Urethritis and urethral rv syndrome. Condition is Stable. Forms are Medication Reconciliation Form, Thank You Letter, Antibiotic Education, Prescription Opioid Use. Follow up: Lorne Jean; When: Upon discharge from the Emergency Department; Reason: Recheck today's complaints, Continuance of care, Re-evaluation by your physician. Problem is new. Symptoms are unchanged. tw4
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
[2020-04-05 02:09] VITALS: BP 130/68; TEMP 98.3; O2SAT 100
== END 2020-04-05 02:03 | disposition home or self-care (01) ==
LOC: ER 00:39
DX: N34.2 Other urethritis (principal); N34.3 Urethral syndrome, unspecified; Z91.040 Latex allergy status
CPT/HCPCS: 81003; 99283

== ENCOUNTER 2020-04-12 08:02 | Emergency (ER) | payer SELFPAY ==
--- OUTSIDE RECORDS SUMMARY | 2020-04-12 08:08 | XMS REPORT | Continuity of Care Document ---
:1980 Author Organization [facility] t Address [address] [place] [address] Care Team Providers Name Role Phone Juan R, Anisha Main Attending Clinician Unavailable Doctor Unassigned, Name Attending Clinician Unavailable Mor CHAMBERLAIN Attending Clinician Rik Spencer Attending Clinician Problems This patient has no known problems. Allergies, Adverse Reactions, Alerts This patient has no known allergies or adverse reactions. Medications This patient has no known medications. Procedures This patient has no known procedures. Encounters Start End Encounter Admission Attending Care Care Encounter Source Date/Time Date/Time Type Type Clinicians Facility Department ID 2020-04-09 2020-04-09 Security Assurance Analyst No [facility] [id number] 14:05:12 14:20:12 Visit Lab Main [place] [id number] [place] [id number] Professjerilyn [id number] [address] 2020-04-09 2020-04-09 Orders Doctor JAY JAY [id number] 00:00:00 00:00:00 Only UnassignedLUDIN [id number] [facility] [id number] 2020-03-11 2020-03-11 Emergency Mor LAANDRÉS [id number] 14:22:00 17:14:00 Shinitzel Zepeda [id number] [place] [id number] [place] [id number] 2020-03-05 2020-03-05 Emergency [facility] [id number] 14:19:00 16:31:00 Cynthia Zepeda [id number] [place] [id number] [place] [id number] 2020-03-05 2020-03-05 Orders Doctor JAY JAY [id number] 00:00:00 00:00:00 Only Unassigned, [place] [id number] [place] [id number] Results This patient has no known results.
--- OUTSIDE RECORDS SUMMARY | 2020-04-12 08:09 | XMS REPORT | Summary of Care ---
:1980 Author Organization [facility] Address [address] [place] [address] Care Team Providers Name Role Phone Aditya Jean Primary Care Provider Encounter Details Date Type Department Care Team Description 04/09/2020 Orders Only [facility] Doctor Unassigned, No [address] [facility] [place] [address] [address] [place] [address] Allergies Active Allergy Reactions Severity Noted Date Comments Adhesive Rash 03/27/2016 Latex Rash 03/27/2016 documented as of this encounter (statuses as of 04/09/2020) Medications Medication Sig Dispensed Refills Start Date [...] as of this encounter (statuses as of 04/09/2020) Active Problems No known active problemsdocumented as of this encounter (statuses as of 04/09/2020) Social History Tobacco Use Types Packs/Day Years [...] Name Priority Date/Time Associated Diagnosis Comme nts ASSIGNMENT OF BENEFITS Routine 04/09/2020 1:59 PM CDT documented in this encounter Results Not on filedocumented in this encounter
--- OUTSIDE RECORDS SUMMARY | 2020-04-12 08:09 | XMS REPORT | Summary of Care ---
:1980 Author Organization [facility] Address [address] [place] [id number] Care Team Providers Name Role Phone Aditya Jean Primary Care Provider Reason for Visit Reason Comments LAB WORK Auth/Cert Status Reason Specialty Diagnoses / Procedures Referred By C ontact Referred To Contact Phlebotomy Diagnoses Z72.51 Adc Pob Lab Draw Procedures CHG IADNA TRICHOMONAS VAGINALIS AMPLIFIED PROBE TECH CHG N.GONORRHOEAE, DNA, AMP PROB CHG CHYLMD TRACH, DNA, AMP PROBE Professional Office Building [address] , [address] [place] [address] Phone: Fax: Encounter Details Date Type Department Care Team Description 04/09/2020 Case Supervisor Visit [facility] Neeraj Hernandez MD [address] [facility] [id number] [place] [address] High risk sexual Professional Office Pob, Adc Lab Main behavior, Building Phlebotomy unspecif ied type Lab (Primary Dx) Professional Office Building [address] [facility] [facility] , [address] [place] [address] Allergies Active Allergy Reactions Severity Noted Date [...] been in contact with No / Unsure 04/09/2020 2:05 PM CDT someone who was confirmed or suspected to have Coronavirus / COVID-19? documented as of this encounter Last Filed Vital Signs Not on filedocumented in this encounter Nursing Notes Jessica Rodríguez - 04/09/2020 7:45 AM CDT Patient has been identified by and name and was provided with cup, antiseptic towelette, and clean catch instructions. 1 urine specimen(s) sent. Unpreserved Urine Culture 1 Aptima tube Other urine documented in this encounter Plan of Treatment Name Type Priority Associated Diagnoses Order S chedule GC & CHLAMYDIA AMPLIFIED LAB Routine High risk sexual Expected: 04/09/2020, ASSAY behavior, unspecified s: 04/09/2021 type TRICHOMONAS AMPLIFIED LAB Routine High risk sexual Ex pected: 04/09/2020, ASSAY behavior, unspecified s: 04/09/2021 type Health Maintenance Due Date Last Done Comments [...] filedocumented in this encounter Visit Diagnoses Diagnosis High risk sexual behavior, unspecified t ype - Primary documented in this encounter
[2020-04-12 08:36] LABS: Absolute Lymphocytes (CBC) 1.6 K/uL (0.7-4.9); Basophils % 0.5 % (0-1.3); Hematocrit 41.7 % (39.6-49.0); Lymphocytes % 20.9 % (15.3-44.8); MPV 10.2 fL (7.6-11.3); RBC Red Blood Cell Count 4.75 M/uL (4.33-5.43)
[2020-04-12] MEDS ORDERED: NA CHLORIDE 0.9% 1,000 ML ONE (08:37)
[2020-04-12 08:54] LABS: ALT/SGPT 17 U/L (12-78); AST/SGOT 11 U/L (15-37); Albumin 3.5 g/dL (3.4-5.0); Alkaline Phosphatase 96 U/L (45-117); BUN Blood Urea Nitrogen 15 mg/dL (7-18); Bicarbonate 26 mmol/L (21-32); Bilirubin Direct 0.3 mg/dL (0-0.2); Bilirubin Total 1.4 mg/dL (0.2-1.0); Glucose Level 87 mg/dL (74-106); Lipase 73 U/L (73-393); Potassium 4.1 mmol/L (3.5-5.1); Protein, Total 7.9 g/dL (6.4-8.2); Sodium Level 141 mmol/L (136-145)
--- NOTE | 2020-04-12 09:33 | RAD REPORT ---
EXAM DESCRIPTION: CT - Stone Protocol - 04/12/2020 8:32 am CLINICAL HISTORY: Flank pain. Flank pain;Hematuria COMPARISON: No comparisons TECHNIQUE: Axial images were obtained without oral or IV contrast. Lack of contrast limits solid org an and vascular assessment. The [id number] spans the entirety of the system partially obscuring uppermost abdomen and lung bases. Coronal reformatted images were obtained and reviewed. All CT scans are performed using dose optimization technique as appropriate and may include automated exposure control or mA/KV adjustment according to patient size. FINDINGS: Small right pleural effusion with atelectasis in the right lung base. Imaged portions of the liver and spleen show no suspicious findings on non-contrast imaging. The panc reas and adrenal glands are normal. No pathologic lymphadenopathy in the abdomen or pelvis. No urinary tract stones or obstructive uropathy. No bowel obstruction, free air, free fluid or abscess. Normal appendix noted.A large amount of fecal material in the colon including the rectal fecal impaction noted. No significant bony abnormality. IMPRESSION: No urinary tract stones or obstructive uropathy. Rectal fecal impaction suspected. Small right pleural effusion.
--- NOTE | 2020-04-12 09:51 | EDPHYS ---
Physician Documentation [facility] Name: Lorne Madison Age: 39 yrs Sex: Male : 1980 Arrival Date: 04/12/2020 Time: 08:04 Bed 5 Private MD: Lorne Jean E ED Physician Kris Kign HPI: 04/12 08:16 This 39 yrs old Male presents to ER via Unassigned with complaints of Urinary dinora Problem. 08:16 The patient presents with abdominal pain. Onset: The symptoms/episode began/occurred 2 dinora day(s) ago. The patient presents with urinary symptoms, dysuria. Onset: The symptoms/episode began/occurred 2 day(s) ago. Modifying factors: The symptoms are alleviated by nothing, the symptoms are aggravated by nothing. The symptoms do not radiate. Associated signs and symptoms: Pertinent positives: abdominal pain. The symptoms are described as dull. Severity of pain: At its worst the pain was mild in the emergency department the pain is unchanged. Historical: - Allergies: 08:20 Adhesives; jl7 08:20 Latex, Natural Rubber; jl7 - Home Meds: 08:20 None [Active]; jl7 - PMHx: 08:20 Anxiety; Bipolar disorder; Depression; scoliosis; jl7 - PSHx: 08:20 None; jl7 - Immunization history:: Adult Immunizations up to date. - Social history:: Smoking status: Patient denies any tobacco usage or history of. - Family history:: not pertinent. ROS: 08:16 Constitutional: Negative for fever, chills, and weight loss, Eyes: Negative for injury, dinora pain, redness, and discharge, ENT: Negative for injury, pain, and discharge, Neck: Negative for injury, pain, and swelling, Cardiovascular: Negative for chest pain, palpitations, and edema, Respiratory: Negative for shortness of breath, cough, wheezing, and pleuritic chest pain, Back: Negative for injury and pain, MS/Extremity: Negative for injury and deformity, Skin: Negative for injury, rash, and discoloration, Neuro: Negative for headache, weakness, numbness, tingling, and seizure, Psych: Negative for depression, anxiety, suicide ideation, homicidal ideation, and hallucinations, Allergy/Immunology: Negative for hives, rash, and allergies, Endocrine: Negative for neck swelling, polydipsia, polyuria, polyphagia, and marked weight changes, Hematologic/Lymphatic: Negative for swollen nodes, abnormal bleeding, and unusual bruising. 08:16 Abdomen/GI: Positive for abdominal cramps. 08:16 : Positive for urinary symptoms, urinary frequency, hematuria. Exam: 08:16 Constitutional: This is a well developed, well nourished patient who is awake, alert, dinora and in no acute distress. Head/Face: Normocephalic, atraumatic. Eyes: Pupils equal round and reactive to light, extra-ocular motions intact. Lids and lashes normal. Conjunctiva and sclera are non-icteric and not injected. Cornea within normal limits. Periorbital areas with no swelling, redness, or edema. ENT: Nares patent. No nasal discharge, no septal abnormalities noted. Tympanic membranes are normal and external auditory canals are clear. Oropharynx with no redness, swelling, or masses, exudates, or evidence of obstruction, uvula midline. Mucous membranes moist. Neck: Trachea midline, no thyromegaly or masses palpated, and no cervical lymphadenopathy. Supple, full range of motion without nuchal rigidity, or vertebral point tenderness. No Meningismus. Chest/axilla: Normal chest wall appearance and motion. Nontender with no deformity. No lesions are appreciated. Cardiovascular: Regular rate and rhythm with a normal S1 and S2. No gallops, murmurs, or rubs. Normal PMI, no JVD. No pulse deficits. Respiratory: Lungs have equal breath sounds bilaterally, clear to auscultation and percussion. No rales, rhonchi or wheezes noted. No increased work of breathing, no retractions or nasal flaring. Abdomen/GI: Soft, non-tender, with normal bowel sounds. No distension or tympany. No guarding or rebound. No evidence of tenderness throughout. Back: No spinal tenderness. No costovertebral tenderness. Full range of motion. Male : Normal genitalia with no discharge or lesions. Skin: Warm, dry with normal turgor. Normal color with no rashes, no lesions, and no evidence of cellulitis. MS/ Extremity: Pulses equal, no cyanosis. Neurovascular intact. Full, normal range of motion. Neuro: Awake and alert, GCS 15, oriented to person, place, time, and situation. Cranial nerves II-XII grossly intact. Motor strength 5/5 in all extremities. Sensory grossly intact. Cerebellar exam normal. Normal gait. Psych: Awake, alert, with orientation to person, place and time. Behavior, mood, and affect are within normal limits. 08:16 : CVA tenderness, is absent, Male external genitalia: normal, Circumcision noted. Bladder: is normal, Sexual behavior: the patient is not sexually active. Vital Signs: 08:07 BP 123 / 85; Pulse 90; Resp 15 S; Temp 98.5(TE); Pulse Ox 99% on R/A; Weight 72.57 kg jl7 (R); Height 5 ft. 11 in. (180.34 cm); Pain 5/10; 09:10 BP 131 / 76; Pulse 71; Resp 17; Pulse Ox 100% on R/A; tw2 10:05 BP 123 / 71; Pulse 72; Resp 17; Pulse Ox 100% on R/A; tw2 08:07 Body Mass Index 22.32 (72.57 kg, 180.34 cm) jl7 MDM: 08:10 Patient medically screened. [facility] 08:18 Differential diagnosis: nonspecific abdominal pain, UTI, cholecystitis, Cholelithiasis, dinora non-specific abd pain, Ureterolithiasis, urinary tract infection. Data reviewed: vital signs, nurses notes, lab test result(s), radiologic studies, CT scan. Data interpreted: secured entrance monitor: rate is 62 beats/min, rhythm is regular, Pulse oximetry: on room air is 100 %. Test interpretation: by ED physician or midlevel provider:. Counseling: I had a detailed discussion with the patient and/or guardian regarding: the historical points, exam findings, and any diagnostic results supporting the discharge/admit diagnosis, lab results, radiology results, the need for outpatient follow up, for definitive care, a family practitioner. 04/12 08:14 Order name: Basic Metabolic Panel; Complete Time: 09:21 dinora 04/12 08:14 Order name: CBC with Diff; Complete Time: 09:21 [place]ora 04/12 08:14 Order name: Hepatic Function; Complete Time: 09:21 [place] 04/12 08:14 Order name: Lipase; Complete Time: 09:21 [facility] 04/12 08:14 Order name: Urine Culture [facility] 04/12 08:49 Order name: Urine Dipstick--Ancillary (enter results) 04/12 08:14 Order name: IV Saline Lock; Complete Time: 08:34 [facility] 04/12 08:14 Order name: Labs collected and sent; Complete Time: 08:34 [facility] 04/12 08:14 Order name: Urine Dipstick-Ancillary (obtain specimen); Complete Time: 08:34 [facility] 04/12 08:14 Order name: CT Stone Protocol; Complete Time: 09:49 [facility] Administered Medications: 08:34 Drug: NS 0.9% 1000 ml Route: IV; Rate: 1 bolus; Site: right forearm; jl7 10:15 Follow up: Response: No adverse reaction jl7 10:23 Follow up: Response: No adverse reaction; 1000 ml infused. no infiltration noted jl7 Disposition: 04/12/20 09:50 Discharged to Home. Impression: Dysuria, Bipolar disorder, Constipation, Pleural effusion in conditions classified elsewhere. - Condition is Stable. - Discharge Instructions: Constipation, Adult, Dysuria, Bipolar Disorder, Pleural Effusion, Constipation, Adult, [id number]. - Prescriptions for Bactrim DS 800- 160 mg Oral Tablet - take 1 tablet by ORAL route every 12 hours for 7 days; 14 tablet. Miralax 17 gram/dose Oral - take 1 packet by ORAL route once daily dilute powder in 8 ounces of water or juice; 14 packet. - Medication Reconciliation Form, Thank You Letter, Antibiotic Education, Prescription Opioid Use form. - Follow up: Lorne Jean; When: 2 - 3 days; Reason: Recheck today's complaints, Continuance of care, Re-evaluation by your physician. Follow up: Raúl De La Vega MD; When: 2 - 3 days; Reason: Recheck today's complaints, Re-evaluation by your physician. - Problem is new. - Symptoms have improved. Signatures: Dispatcher [employer] EDKris Hernandez MD MD cha Wise, Tara, RN RN tw2 Davin Gruber RN RN jl7 Corrections: (The following items were deleted from the chart) 10: 09:50 04/12/2020 09:50 Discharged to Home. Impression: Dysuria; Bipolar disorder; tw2 Constipation; Pleural effusion in conditions classified elsewhere. Condition is Stable. Discharge Instructions: Dysuria, Bipolar Disorder. Prescriptions for Bactrim DS 800-160 mg Oral Tablet - take 1 tablet by ORAL route every 12 hours for 7 days; 14 tablet. and Forms are Medication Reconciliation Form, Thank You Letter, Antibiotic Education, Prescription Opioid Use. Follow up: Lorne Jean; When: 2 - 3 days; Reason: Recheck today's complaints, Continuance of care, Re-evaluation by your physician. Follow up: Raúl De La Vega; When: 2 - 3 days; Reason: Recheck today's complaints, Re-evaluation by your physician. Problem is new. Symptoms have improved. dinora
--- NOTE | 2020-04-12 09:51 | ER ---
Nurse's Notes [facility] Name: Lorne Madison Age: 39 yrs Sex: Male : 1980 Arrival Date: 04/12/2020 Time: 08:04 Bed 5 Private MD: Lorne Heaton E Diagnosis: Dysuria;Bipolar disorder;Constipation;Pleural effusion in conditions classified elsewhere Presentation: 04/12 08:01 Method Of Arrival: Ambulatory 7 08:07 Chief complaint: Patient states: Placed on Doxycycline and yeast cream x last week, jl7 dark urine started 2 days ago, denies burning with urination but tip of penis heaton without urination, girlfriend being treated for BV and yeast. Coronavirus screen: Client denies travel out of the [place] in the last 14 days. At this time, the client does not indicate any symptoms associated with coronavirus-19. Ebola Screen: No symptoms or risks identified at this time. Initial Sepsis Screen: Does the patient meet any 2 criteria? No. Patient's initial sepsis screen is negative. Does the patient have a suspected source of infection? No. Patient's initial sepsis screen is negative. Risk Assessment: Do you want to hurt yourself or someone else? Patient reports no desire to harm self or others. Onset of symptoms was April 10, 2020. Care prior to arrival: None. Transition of care: patient was not received from another setting of care. 08:07 Acuity: NELLIE 3 jl7 Triage Assessment: 08:20 General: Appears in no apparent distress. uncomfortable, Behavior is calm, cooperative, jl7 appropriate for age. Pain: Complains of pain in pelvis Pain currently is 5 out of 10 on a pain scale. Neuro: Level of Consciousness is awake, alert, obeys commands, Oriented to person, place, time, situation. Cardiovascular: Patient's skin is warm and dry. Respiratory: Airway is patent Respiratory effort is even, unlabored, Respiratory pattern is regular, symmetrical. GI: No signs and/or symptoms were reported involving the gastrointestinal system. : Genitalia appear normal Reports pain. Derm: Skin is pink, warm \T\ dry. Historical: - Allergies: 08:20 Adhesives; jl7 08:20 Latex, Natural Rubber; jl7 - Home Meds: 08:20 None [Active]; jl7 - PMHx: 08:20 Anxiety; Bipolar disorder; Depression; scoliosis; jl7 - PSHx: 08:20 None; jl7 - Immunization history:: Adult Immunizations up to date. - Social history:: Smoking status: Patient denies any tobacco usage or history of. - Family history:: not pertinent. Screenin:34 Abuse screen: Denies threats or abuse. Denies injuries from another. Nutritional [facility] screening: No deficits noted. Tuberculosis screening: No symptoms or risk factors identified. Fall Risk IV access (20 points). Total Cordero Fall Scale indicates No Risk (0-24 pts). Assessment: 08:34 General: See triage assessment. [facility] 09:10 Reassessment: Patient appears in no apparent distress at this time. No changes from tw2 previously documented assessment. Patient and/or family updated on plan of care and expected duration. Pain level reassessed. Patient is alert, oriented x 3, equal unlabored respirations, skin warm/dry/pink. 10:06 Reassessment: Patient appears in no apparent distress at this time. No changes from tw2 previously documented assessment. Patient and/or family updated on plan of care and expected duration. Pain level reassessed. Patient is alert, oriented x 3, equal unlabored respirations, skin warm/dry/pink. 10:21 Reassessment: Patient appears in no apparent distress at this time. No changes from tw2 previously documented assessment. Patient and/or family updated on plan of care and expected duration. Pain level reassessed. Patient is alert, oriented x 3, equal unlabored respirations, skin warm/dry/pink. Vital Signs: 08:07 BP 123 / 85; Pulse 90; Resp 15 S; Temp 98.5(TE); Pulse Ox 99% on R/A; Weight 72.57 kg [facility] (R); Height 5 ft. 11 in. (180.34 cm); Pain 5/10; 09:10 BP 131 / 76; Pulse 71; Resp 17; Pulse Ox 100% on R/A; tw2 10:05 BP 123 / 71; Pulse 72; Resp 17; Pulse Ox 100% on R/A; tw2 08:07 Body Mass Index 22.32 (72.57 kg, 180.34 cm) [facility] ED Course: 08:04 Patient arrived in ED. ag5 08:04 Lorne Heaton MD is Private Physician. ag5 08:10 Kris King MD is Attending Physician. [facility] 08:17 Davin Gruber, RN is Primary Nurse. jl7 08:20 Triage completed. jl7 08:20 Arm band placed on right wrist. jl7 08:25 Initial lab(s) drawn, by dc, sent to lab. Urine collected: clean catch specimen, clear. jl7 Inserted saline lock: 20 gauge in right forearm, using aseptic technique. Blood collected. 08:31 CT Stone Protocol In Process Unspecified. EDWV 08:34 Patient has correct armband on for positive identification. Bed in low position. Call jl7 light in reach. Side rails up X 1. Pulse ox on. NIBP on. 09:49 Lorne Heaton MD is Referral Physician. [facility] 09:50 Raúl De La Vega MD is Referral Physician. [facility] 10:21 No provider procedures requiring assistance completed. IV discontinued, intact, tw2 bleeding controlled, No redness/swelling at site. Pressure dressing applied. Administered Medications: 08:34 Drug: NS 0.9% 1000 ml Route: IV; Rate: 1 bolus; Site: right forearm; jl7 10:15 Follow up: Response: No adverse reaction jl7 10:23 Follow up: Response: No adverse reaction; 1000 ml infused. no infiltration noted jl7 Intake: Outcome: 09:50 Discharge ordered by . dinora 10:21 Discharged to home ambulatory. tw2 10:21 Condition: stable 10:21 Discharge instructions given to patient, Instructed on discharge instructions, follow up and referral plans. medication usage, Demonstrated understanding of instructions, follow-up care, medications, Prescriptions given X 2. 10:21 Patient left the ED. tw2 Signatures: Dispatcher [employer] EDWV Kris King MD MD cha Wise, Tara, RN RN tw2 Davin Gruber, RN RN jl7 Radha Sams ag5
[2020-04-12 10:34] VITALS: TEMP 98.5
[2020-04-12 10:35] LABS: Urine Blood TRACE (NEG); Urine Glucose NEGATIVE (NEG); Urine Protein NEGATIVE (NEG); Urine Specific Gravity >1.030 (1.005-1.030)
[2020-04-12 10:44] VITALS: O2SAT 100
[2020-04-12 10:50] VITALS: BP 123/71
== END 2020-04-12 10:21 | disposition home or self-care (01) ==
LOC: ER 08:02
DX: K59.00 Constipation, unspecified (principal); J91.8 Pleural effusion in other conditions classified elsewhere; F31.9 Bipolar disorder, unspecified; Z91.040 Latex allergy status; Z91.048 Other nonmedicinal substance allergy status
CPT/HCPCS: 36415; 74176; 76377; 80048; 80076; 81003; 83690; 85025; 87086; 87088; 99284; J7030

== ENCOUNTER 2020-05-26 15:44 | Emergency (ER) | payer SELFPAY ==
--- NOTE | 2020-05-26 18:24 | RAD REPORT ---
EXAM DESCRIPTION: CT - Head Brain Wo Cont - 05/26/2020 6:18 pm CLINICAL HISTORY: HEADACHE Headache, drowsiness COMPARISON: No comparisons TECHNIQUE: All CT scans are performed using dose optimization technique as appropriate and may inclu de automated exposure control or mA/KV adjustment according to patient size. FINDINGS: No intracranial hemorrhage, hydrocephalus or extra-axial fluid collection.No areas of brai n edema or evidence of midline shift. The paranasal sinuses and mastoids are clear. The calvarium is intact. IMPRESSION: No acute intracranial abnormality.
[2020-05-26 19:00] LABS: Potassium 3.9 mmol/L (3.5-5.1)
[2020-05-26 19:07] LABS: Albumin 4.1 g/dL (3.4-5.0); Bilirubin Direct 0.1 mg/dL (0-0.2); Bilirubin Total 0.6 mg/dL (0.2-1.0); Magnesium 2.5 mg/dL (1.8-2.4); Protein, Total 8.5 g/dL (6.4-8.2)
[2020-05-26 19:08] LABS: Absolute Lymphocytes (CBC) 1.6 K/uL (0.7-4.9); Basophils % 0.5 % (0-1.3); Hematocrit 43.9 % (39.6-49.0); Lymphocytes % 12.4 % (15.3-44.8); MPV 10.3 fL (7.6-11.3); Protime INR 1.2; RBC Red Blood Cell Count 4.97 M/uL (4.33-5.43)
--- NOTE | 2020-05-26 19:16 | RAD REPORT ---
EXAM DESCRIPTION: RAD - Chest Single View - 05/26/2020 6:40 pm CLINICAL HISTORY: CHEST PAIN Chest pain. COMPARISON: Chest Single View dated 11/13/2018; Chest Single View dated 08/17/2018; CHEST SINGLE VIEW d ated 09/06/2014; CHEST PA AND LAT 2 VIEW dated 12/01/2013; Stone Protocol dated 04/12/2020 FINDINGS: Portable technique limits examination quality. The lungs are grossly clear. Small right pleural effusion. The heart is normal in size. No displaced fractures.Thoracic spinal hardware.
--- OUTSIDE RECORDS SUMMARY | 2020-05-26 21:17 | XMS REPORT | Summary of Care ---
:1980 Author Organization [facility] - [facility] Address [address] [place] [address] Care Team Providers Name Role Phone Aditya Jean Primary Care Provider Encounter Details Date Type Department Care Team Description 04/09/2020 Orders Only [facility] Doctor Unassigned, No [address] [facility] [place] [address] [address] [place] [address] Allergies Active Allergy Reactions Severity Noted Date [...]
--- OUTSIDE RECORDS SUMMARY | 2020-05-26 21:17 | XMS REPORT | Continuity of Care Document ---
:1980 Author Organization [facility] t Address [address] [place] [address] Care Team Providers Name Role Phone Pob, Anisha Main Attending Clinician Unavailable Doctor Unassigned, [...] Type Clinicians Facility Department ID 2020-04-09 2020-04-09 Business Records Manager No Pete [facility] [id number] 14:05:12 14:20:12 Visit Lab Main [place] [id number] [place] [id number] Professjerilyn [phone] [address] 2020-04-09 2020-04-09 Orders Doctor JAY JAY [id number] 00:00:00 00:00:00 Only UnassignedLUDIN [id number] [place] [facility] [id number] 2020-03-11 2020-03-11 Emergency Mor KYANDRÉS [id number] 14:22:00 17:14:00 Shinta [place] [id number] [place] [id number] [place] [phone] [id number] 2020-03-05 2020-03-05 Emergency [facility] [id number] 14:19:00 16:31:00 Cynthia Zepeda [id number] [place] [id number] [place] [id number] [id number] 2020-03-05 2020-03-05 Orders Doctor JAY JAY [id number] 00:00:00 00:00:00 Only Unassigned, LUDIN [id number] [place] [facility] [id number] [id number] Results This patient has no known results.
--- NOTE | 2020-05-26 21:18 | ER ---
Nurse's Notes [facility] Name: Lorne Madison Age: 39 yrs Sex: Male : 1980 Arrival Date: 05/26/2020 Time: 15:48 Bed 19 Private MD: Diagnosis: Chest pain, unspecified;Syncope and collapse Presentation: 05/26 16:02 Chief complaint: Patient states: upper chest pain since this morning, mild SOB, iw dizziness, no cough, no fever or chills, was feeling weak and fell at home, fell against a stone fireplace, abrasion to neck , did not hit head, pt states he blacked out for a second. Coronavirus screen: shortness of breath. Ebola Screen: Patient negative for fever greater than or equal to 101.5 degrees Fahrenheit, and additional compatible Ebola Virus Disease symptoms Patient denies exposure to infectious person. Patient denies travel to an Ebola-affected area in the 21 days before illness onset. No symptoms or risks identified at this time. Initial Sepsis Screen: Does the patient meet any 2 criteria? No. Patient's initial sepsis screen is negative. Does the patient have a suspected source of infection? No. Patient's initial sepsis screen is negative. Risk Assessment: Do you want to hurt yourself or someone else? Patient reports no desire to harm self or others. Onset of symptoms was May 26, 2020. 16:02 Method Of Arrival: Ambulatory iw 16:02 Acuity: NELLIE 3 iw Historical: - Allergies: 16:05 Adhesives; iw 16:05 Latex, Natural Rubber; iw - Home Meds: 16:05 None [Active]; iw - PMHx: 16:05 Bipolar disorder; Anxiety; Depression; scoliosis; collapsed lung; iw - PSHx: 16:05 back; iw - Immunization history:: Adult Immunizations not up to date. - Social history:: Smoking status: Patient denies any tobacco usage or history of. Screenin:10 Abuse screen: Denies threats or abuse. Denies injuries from another. Nutritional aj1 screening: No deficits noted. Tuberculosis screening: No symptoms or risk factors identified. 21:01 Fall Risk None identified. aj1 Assessment: 19:10 General: Appears in no apparent distress. comfortable, Behavior is calm, cooperative, aj1 appropriate for age. Pain: Complains of pain in anterior aspect of left upper chest Pain does not radiate. Pain currently is 5 out of 10 on a pain scale. Quality of pain is described as aching, Pain began this morning. Neuro: Level of Consciousness is awake, alert, obeys commands, Oriented to person, place, time, situation. Cardiovascular: Reports chest pain, lightheadedness, syncope, Denies palpitations, shortness of breath, Heart tones S1 S2 present Patient's skin is warm and dry. Rhythm is sinus rhythm. Respiratory: Airway is patent Respiratory effort is even, unlabored, Respiratory pattern is regular, symmetrical. Respiratory: Breath sounds are clear bilaterally. GI: No signs and/or symptoms were reported involving the gastrointestinal system. : No signs and/or symptoms were reported regarding the genitourinary system. EENT: No signs and/or symptoms were reported regarding the EENT system. EENT: No signs and/or symptoms were reported regarding the EENT system. Derm: No signs and/or symptoms reported regarding the dermatologic system. Skin is pink, warm \T\ dry. normal. Musculoskeletal: No signs and/or symptoms reported regarding the musculoskeletal system. Circulation, motion, and sensation intact. 20:04 Reassessment: Patient appears in no apparent distress at this time. No changes from aj1 previously documented assessment. Patient and/or family updated on plan of care and expected duration. Pain level reassessed. Patient is alert, oriented x 3, equal unlabored respirations, skin warm/dry/pink. 21:01 Reassessment: Patient appears in no apparent distress at this time. No changes from aj1 previously documented assessment. Patient and/or family updated on plan of care and expected duration. Pain level reassessed. Patient is alert, oriented x 3, equal unlabored respirations, skin warm/dry/pink. Vital Signs: 16:02 BP 112 / 89; Pulse 104; Resp 16 S; Temp 98.5; Pulse Ox 97% on R/A; Weight 75.3 kg; iw Height 5 ft. 11 in. (180.34 cm); Pain 5/10; 19:10 BP 119 / 67; Pulse 71; Resp 18; Pulse Ox 100% on R/A; aj1 20:04 BP 112 / 67; Pulse 81; Resp 18; Pulse Ox 100% ; aj1 16:02 Body Mass Index 23.15 (75.30 kg, 180.34 cm) iw ED Course: 15:48 Patient arrived in ED. rg4 16:04 Triage completed. iw 18:04 Alem Calle FNP-C is [facility]. kb 18:04 Morales Waldrop MD is Attending Physician. kb 18:18 CT Head Brain wo Cont In Process Unspecified. EDMS 18:32 Initial lab(s) drawn, by tx, sent to lab. Inserted saline lock: 20 gauge in right 3 forearm, using aseptic technique. Blood collected. 18:40 XRAY Chest (1 view) In Process Unspecified. EDMS 18:41 EKG done, by ED staff, reviewed by Alem GONZALEZ. 3 19:10 No provider procedures requiring assistance completed. Patient maintains SpO2 aj1 saturation greater than 95% on room air. 19:10 Patient has correct armband on for positive identification. purification director on. Pulse aj1 ox on. NIBP on. 19:13 Sara Gerard, RN is Primary Nurse. aj1 21:00 IV discontinued, intact, bleeding controlled, No redness/swelling at site. Pressure aj1 dressing applied. Administered Medications: No medications were administered Outcome: 20:29 Discharge ordered by . kb 21:01 Discharged to home ambulatory. aj1 21:01 Condition: good 21:01 Discharge instructions given to patient, Instructed on discharge instructions, follow up and referral plans. Demonstrated understanding of instructions, follow-up care. 21:07 Patient left the ED. aj1 Signatures: Dispatcher [employer] EDMO Alem Calle FNP-C FNP-Ckb Johnson, Angela, RN RN aj1 Odalys Begum RN RN Anali Michel [address] [place] [address]
--- NOTE | 2020-05-26 21:18 | EDPHYS ---
Physician Documentation [facility] Name: Lorne Madison Age: 39 yrs Sex: Male : 1980 Arrival Date: 05/26/2020 Time: 15:48 Bed 19 Private MD: ED Physician Morales Waldrop HPI: 05/26 18:48 This 39 yrs old Male presents to ER via Ambulatory with complaints of Chest kb Pain, Dizziness. 18:48 The patient or guardian reports chest pain that is located primarily in the anterior kb chest wall, left. The pain does not radiate. Associated signs and symptoms: Pertinent positives: dizziness, syncope, Pertinent negatives: abdominal pain, cough, diaphoresis, headache, lower extremity pain, lower extremity swelling, lightheadedness, nausea, near syncope, palpitations, recent travel, shortness of breath, vomiting. The chest pain is described as aching. Duration: The patient or guardian reports a single episode. Modifying factors: The symptoms are alleviated by nothing. the symptoms are aggravated by nothing. Severity of pain: At its worst the pain was mild in the emergency department the pain is unchanged. The patient has not experienced similar symptoms in the past. The patient has not recently seen a physician. Pt reports he has had chest pain since this morning. States he was walking to the door to go to work around 1500 and passed out. . Historical: - Allergies: 16:05 Adhesives; iw 16:05 Latex, Natural Rubber; iw - Home Meds: 16:05 None [Active]; iw - PMHx: 16:05 Bipolar disorder; Anxiety; Depression; scoliosis; collapsed lung; iw - PSHx: 16:05 back; iw - Immunization history:: Adult Immunizations not up to date. - Social history:: Smoking status: Patient denies any tobacco usage or history of. ROS: 18:46 Constitutional: Negative for fever, chills, and weight loss, Respiratory: Negative for kb shortness of breath, cough, wheezing, and pleuritic chest pain, Abdomen/GI: Negative for abdominal pain, nausea, vomiting, diarrhea, and constipation, Back: Negative for injury and pain, MS/Extremity: Negative for injury and deformity, Skin: Negative for injury, rash, and discoloration. 18:46 Cardiovascular: Positive for chest pain, Negative for edema, orthopnea, palpitations, paroxysmal nocturnal dyspnea. 18:46 Neuro: Positive for dizziness, syncope. Exam: 18:46 Constitutional: This is a well developed, well nourished patient who is awake, alert, kb and in no acute distress. Head/Face: Normocephalic, atraumatic. Chest/axilla: Normal chest wall appearance and motion. Nontender with no deformity. No lesions are appreciated. Cardiovascular: Regular rate and rhythm with a normal S1 and S2. No gallops, murmurs, or rubs. Normal PMI, no JVD. No pulse deficits. Respiratory: Lungs have equal breath sounds bilaterally, clear to auscultation and percussion. No rales, rhonchi or wheezes noted. No increased work of breathing, no retractions or nasal flaring. Abdomen/GI: Soft, non-tender, with normal bowel sounds. No distension or tympany. No guarding or rebound. No evidence of tenderness throughout. MS/ Extremity: Pulses equal, no cyanosis. Neurovascular intact. Full, normal range of motion. Neuro: Awake and alert, GCS 15, oriented to person, place, time, and situation. Cranial nerves II-XII grossly intact. Motor strength 5/5 in all extremities. Sensory grossly intact. Cerebellar exam normal. Normal gait. 18:46 Skin: injury, abrasion(s), small abrasion noted, of the posterior cervical area, left trapezius and left arm. 18:52 ECG was reviewed by the Attending Physician. kb 19:48 ECG was reviewed by the Attending Physician. Vital Signs: 16:02 BP 112 / 89; Pulse 104; Resp 16 S; Temp 98.5; Pulse Ox 97% on R/A; Weight 75.3 kg; iw Height 5 ft. 11 in. (180.34 cm); Pain 5/10; 19:10 BP 119 / 67; Pulse 71; Resp 18; Pulse Ox 100% on R/A; aj1 20:04 BP 112 / 67; Pulse 81; Resp 18; Pulse Ox 100% ; aj1 16:02 Body Mass Index 23.15 (75.30 kg, 180.34 cm) iw MDM: 18:04 Patient medically screened. kb 18:46 Data reviewed: vital signs, nurses notes. Data interpreted: Pulse oximetry: on room air kb is 97 %. Interpretation: normal. 19:24 ED course: Discussed H\T\P and diagnostics with Dr Evans. Recommends repeat trop and EKG kb now. If negative, pt can be discharged home to follow up . 19:42 Counseling: I had a detailed discussion with the patient and/or guardian regarding: the kb historical points, exam findings, and any diagnostic results supporting the discharge/admit diagnosis, lab results, radiology results, the need for outpatient follow up, a family practitioner, to return to the emergency department if symptoms worsen or persist or if there are any questions or concerns that arise at home. 05/26 18:05 Order name: Basic Metabolic Panel; Complete Time: 19:02 kb 05/26 18:05 Order name: CBC with Diff kb 05/26 18:05 Order name: LFT's kb 05/26 18:05 Order name: Magnesium kb 05/26 18:05 Order name: NT PRO-BNP kb 05/26 18:05 Order name: PT-INR kb 05/26 18:05 Order name: Troponin (emerg Dept Use Only) kb 05/26 19:07 Order name: Liver (Hepatic) Function; Complete Time: 19:13 EDMS 05/26 19:07 Order name: Magnesium; Complete Time: 19:13 EDMS 05/26 19:08 Order name: Troponin (Emerg Dept Use Only); Complete Time: 19:13 EDMS 05/26 19:08 Order name: NT PRO-BNP; Complete Time: 19:13 EDMS 05/26 19:14 Order name: Protime (+INR); Complete Time: 19:15 EDMS 05/26 19:17 Order name: CBC with Automated Diff; Complete Time: 19:18 EDMS 05/26 19:19 Order name: Troponin (emerg Dept Use Only) kb 05/26 18:05 Order name: XRAY Chest (1 view); Complete Time: 19:18 kb 05/26 18:05 Order name: EKG; Complete Time: 18:07 kb 05/26 18:05 Order name: Cardiac monitoring; Complete Time: 18:37 kb 05/26 18:05 Order name: EKG - Nurse/Tech; Complete Time: 18:37 kb 05/26 18:05 Order name: IV Saline Lock; Complete Time: 18:37 kb 05/26 18:05 Order name: Labs collected and sent; Complete Time: 18:37 kb 05/26 18:05 Order name: O2 Per Protocol; Complete Time: 18:37 kb 05/26 18:05 Order name: O2 Sat Monitoring; Complete Time: 18:37 kb 05/26 18:05 Order name: CT Head Brain wo Cont; Complete Time: 18:41 kb 05/26 19:19 Order name: EKG; Complete Time: 19:20 kb 05/26 19:19 Order name: EKG - Nurse/Tech; Complete Time: 20:09 kb 05/26 20:29 Order name: Troponin (Emerg Dept Use Only); Complete Time: 20:30 EDMS EC:52 Rate is 78 beats/min. Rhythm is regular. QRS [place] is Normal. [place] interval is normal at kb 154 msec. QRS interval is normal at 92 msec. QT interval is normal at 366 msec. 19:48 Rate is 73 beats/min. Rhythm is regular. QRS [place] is Normal. [place] interval is normal at kb 154 msec. QRS interval is normal at 88 msec. QT interval is normal at 372 msec. Administered Medications: No medications were administered Disposition: 05/26/20 20:29 Discharged to Home. Impression: Chest pain, unspecified, Syncope and collapse. - Condition is Stable. - Discharge Instructions: Nonspecific Chest Pain, Obgy-kd-Btze, Syncope, Dwnz-pb-Chbz. - Medication Reconciliation Form, Thank You Letter, Antibiotic Education, Prescription Opioid Use, Work release form form. - Follow up: Emergency Department; When: As needed; Reason: Worsening of condition. Follow up: Private Physician; When: 2 - 3 days; Reason: Recheck today's complaints, Continuance of care, Re-evaluation by your physician. Addendum: 06/08/2020 04:00 Co-signature as Attending Physician, Morales Waldrop MD. m a2 Signatures: Dispatcher [employer] EDWY Alem Calle, BULMARO-C AGRICULTURAL RESEARCH TECHNICIAN-Ckb Sara Gerard RN RN aj1 Odalys Begum RN RN iw Nieto, Roman, MD MD rn Alzahri, Mohammad, MD MD ma2 Corrections: (The following items were deleted from the chart) 05/26 21:07 20:29 05/26/2020 20:29 Discharged to Home. Impression: Chest pain, unspecified; Syncope aj1 and collapse. Condition is Stable. Discharge Instructions: Nonspecific Chest Pain, Xiwb-hg-Blxo, Syncope, Itwz-pr-Scvd. Forms are Medication Reconciliation Form, Thank You Letter, Antibiotic Education, Prescription Opioid Use. Follow up: Emergency Department; When: As needed; Reason: Worsening of condition. Follow up: Private Physician; When: 2 - 3 days; Reason: Recheck today's complaints, Continuance of care, Re-evaluation by your physician. kb
--- OUTSIDE RECORDS SUMMARY | 2020-05-26 21:18 | XMS REPORT | Summary of Care ---
:1980 Author Organization [facility] Address [address] [place] [id number] Care Team Providers Name Role Phone Aditya Jean Primary Care Provider Reason for Visit Reason Comments LAB WORK Auth/Cert Status Reason Specialty Diagnoses / Procedures Referred By C ontact Referred To Contact Phlebotomy Diagnoses Z72.51 Adc Pob Lab Draw Procedures CHG IADNA TRICHOMONAS VAGINALIS AMPLIFIED PROBE TECH CHG N.GONORRHOEAE, DNA, AMP PROB CHG CHYLMD TRACH, DNA, AMP PROBE Professional Office Building [address] 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 , [address] [place] [address] Allergies Active Allergy Reactions Severity [...]
--- NOTE | 2020-05-27 10:58 | EKG ---
Test Date: 2020-05-26 Test Time: 19:43:06 Car Wash Attendant: RINKU MEASUREMENT RESULTS: Intervals: Rate: 73 LA: 154 QRSD: 88 QT: 372 QTc: 409 [place]: P: 54 LA: 154 QRS: 78 T: 70 INTERPRETIVE STATEMENTS: Normal sinus rhythm with sinus arrhythmia Normal ECG Compared to ECG 05/26/2020 18:41:20 No significant changes Electronically Signed On 05-27-20 10:56:26 [employer]BACCO S[employer] P[employer]ER by Jaydon Smith
--- NOTE | 2020-05-27 10:59 | EKG ---
Test Date: 2020-05-26 Test Time: 18:41:20 Field Radio Operator: JOHN MEASUREMENT RESULTS: Intervals: Rate: 78 LA: 154 QRSD: 92 QT: 366 QTc: 417 [employer]: P: 52 LA: 154 QRS: 81 T: 72 INTERPRETIVE STATEMENTS: Normal sinus rhythm Normal ECG Compared to ECG 11/13/2018 14:11:28 Sinus tachycardia no longer present Right-axis deviation no longer present Electronically Signed On 05-27-20 10:56:29 [employer] WIFE by Jaydon Smith
== END 2020-05-26 21:07 | disposition home or self-care (01) ==
LOC: ER 15:44
DX: R07.9 Chest pain, unspecified (principal); Z91.040 Latex allergy status; Z91.048 Other nonmedicinal substance allergy status
CPT/HCPCS: 36415; 70450; 71045; 80048; 80076; 83735; 83880; 84484; 85025; 85610; 93005; 99285

== ENCOUNTER 2020-07-19 15:43 | Emergency (ER) | payer OTHER, SELFPAY ==
--- NOTE | 2020-07-19 18:56 | RAD REPORT ---
EXAM DESCRIPTION: RAD - Hand Right 3 View - 07/19/2020 6:27 pm CLINICAL HISTORY: Pain;Swelling COMPARISON: No comparisons FINDINGS: No gross fracture deformity seen. There is slight cortical irregularity at the ventral remy e base fifth middle phalanx. There is soft tissue swelling around this PIP joint. Correlation is need ed with any localizing symptoms that may support minimal fracture deformity. No other evidence for fr acture. No dislocation identified. No foreign body or significant soft tissue abnormality. IMPRESSION: No gross fracture deformity seen. Slight cortical irregularity ventral side base fifth m iddle phalanx is potentially a small fracture.
--- NOTE | 2020-07-19 19:35 | EDPHYS ---
Physician Documentation [facility] Name: Lorne Madison Age: 39 yrs Sex: Male : 1980 Arrival Date: 07/19/2020 Time: 15:45 Bed 23 Private MD: Lorne Jean E ED Physician Morales Waldrop HPI: 07/19 19:27 This 39 yrs old Male presents to ER via Ambulatory with complaints of Right cp Hand Injury. 19:28 The patient or guardian reports injury, pain. The complaints affect the right fourth cp and fifth fingers. Context: resulted from striking "drawer". Onset: The symptoms/episode began/occurred just prior to arrival. Associated signs and symptoms: Pertinent positives: swelling and ecchymosis, Pertinent negatives: cyanosis distally, decreased sensation distally. Historical: - Allergies: 16:04 Adhesives; ca1 16:04 Latex, Natural Rubber; ca1 - PMHx: 16:04 Anxiety; Bipolar disorder; COLLAPSED LUNG; Depression; scoliosis; ca1 - PSHx: 16:04 back; ca1 - Immunization history:: Flu vaccine is not up to date. - Social history:: Smoking status: Patient denies any tobacco usage or history of. ROS: 19:29 Constitutional: Negative for body aches, chills, fever, poor PO intake. cp 19:29 MS/extremity: Positive for ecchymosis, pain, swelling, tenderness, of the right fourth and fifth fingers, Negative for decreased range of motion, deformity. 19:29 Skin: Negative for cellulitis, laceration(s), rash. 19:29 All other systems are negative. Exam: 19:32 Constitutional: The patient appears in no acute distress, alert, awake, well developed, cp well nourished. 19:32 Musculoskeletal/extremity: Extremities: grossly normal except: noted in the right cp fourth and fifth fingers: ecchymosis, pain, swelling, tenderness, There is no evidence of deformity, ROM: limited active range of motion due to pain, in the right fourth and fifth fingers, Perfusion: the extremity is with brisk capillary refill, Sensation intact. Vital Signs: 16:02 BP 134 / 83; Pulse 98; Resp 16 S; Temp 98.3(TE); Pulse Ox 100% on R/A; Weight 72.57 kg ca1 (R); Height 5 ft. 11 in. (180.34 cm) (R); Pain 8/10; 19:08 BP 130 / 79; Pulse 85; Resp 20; Pulse Ox 85% ; sp 16:02 Body Mass Index 22.32 (72.57 kg, 180.34 cm) ca1 Procedures: 19:57 Splinting: Splint applied to right fourth and fifth fingers using finger splint, cp applied by tech. Examined by me, post splint application: neurovascular intact, Patient tolerated well. MDM: 19:22 Patient medically screened. cp 19:35 Data reviewed: vital signs, nurses notes, radiologic studies, plain films. cp 19:35 Differential diagnosis: dislocation, closed fracture, contusion. Counseling: I had a cp detailed discussion with the patient and/or guardian regarding: the historical points, exam findings, and any diagnostic results supporting the discharge/admit diagnosis, radiology results, the need for outpatient follow up, a hand specialist. Response to treatment: the patient's symptoms have mildly improved after treatment, and as a result, I will discharge patient. 07/19 16:05 Order name: Hand Right 3 View XRAY ca1 07/19 18:58 Order name: RAD; Complete Time: 19:30 EDKY 07/19 19:32 Interpretation: Report reviewed. 07/19 19:30 Order name: Splint - Finger; Complete Time: 19:51 cp Administered Medications: 19:36 Drug: Ibuprofen 800 mg Route: PO; zb 20:00 Follow up: Response: No adverse reaction em Disposition: 20:05 Chart complete. 07/20 12:29 Co-signature as Attending Physician, Morales Waldrop MD. ma2 Disposition: 07/19/20 19:35 Discharged to Home. Impression: Nondisplaced fracture middle phalanx right small finger. - Condition is Stable. - Discharge Instructions: Finger Fracture, Jammed Finger. - Prescriptions for Naprosyn 500 mg Oral Tablet - take 1 tablet by ORAL route 2 times per day take with food; 30 tablet. - Work release form, Medication Reconciliation Form, Thank You Letter, Antibiotic Education, Prescription Opioid Use form. - Follow up: Nathan Lopes MD; When: 2 - 3 days; Reason: Recheck today's complaints. - Problem is new. - Symptoms have improved. Signatures: Dispatcher [employer] EDYony Arguelles, RN RN Kris Gordon PA PA cp Morales Waldrop MD MD ma2 Vesta Haywood RN Kenzie Modi RN RN zb Corrections: (The following items were deleted from the chart) 07/19 20:00 19:35 07/19/2020 19:35 Discharged to Home. Impression: Nondisplaced fracture middle em phalanx right small finger. Condition is Stable. Forms are Medication Reconciliation Form, Thank You Letter, Antibiotic Education, Prescription Opioid Use. Follow up: Nathan Lopes; When: 2 - 3 days; Reason: Recheck today's complaints. Problem is new. Symptoms have improved. cp
--- NOTE | 2020-07-19 19:35 | ER ---
Nurse's Notes [facility] Name: Lorne Madison Age: 39 yrs Sex: Male : 1980 Arrival Date: 07/19/2020 Time: 15:45 Bed 23 Private MD: Lorne Jean E Diagnosis: Nondisplaced fracture middle phalanx right small finger Presentation: 07/19 16:02 Chief complaint: Patient states: Jammed my R pinky on a drawer few minutes [employer]. ca1 Coronavirus screen: Client denies travel out of the [place] in the last 14 days. At this time, the client does not indicate any symptoms associated with coronavirus-19. Ebola Screen: Patient negative for fever greater than or equal to 101.5 degrees Fahrenheit, and additional compatible Ebola Virus Disease symptoms Patient denies exposure to infectious person. Patient denies travel to an Ebola-affected area in the 21 days before illness onset. No symptoms or risks identified at this time. Initial Sepsis Screen: Does the patient meet any 2 criteria? No. Patient's initial sepsis screen is negative. Does the patient have a suspected source of infection? No. Patient's initial sepsis screen is negative. Risk Assessment: Do you want to hurt yourself or someone else? Patient reports no desire to harm self or others. Onset of symptoms was July 19, 2020. 16:02 Method Of Arrival: Ambulatory ca1 16:02 Acuity: NELLIE 4 ca1 Historical: - Allergies: 16:04 Adhesives; ca1 16:04 Latex, Natural Rubber; ca1 - PMHx: 16:04 Anxiety; Bipolar disorder; COLLAPSED LUNG; Depression; scoliosis; ca1 - PSHx: 16:04 back; ca1 - Immunization history:: Flu vaccine is not up to date. - Social history:: Smoking status: Patient denies any tobacco usage or history of. Screenin:18 Abuse screen: Denies threats or abuse. Denies injuries from another. Nutritional iw screening: No deficits noted. Tuberculosis screening: No symptoms or risk factors identified. Fall Risk None identified. Assessment: 19:17 General: Appears in no apparent distress. Behavior is calm, cooperative. Pain: iw Complains of pain in right hand. Neuro: Level of Consciousness is awake, alert, obeys commands, Oriented to person, place, time, situation, Moves all extremities. Respiratory: Respiratory effort is even, unlabored, Respiratory pattern is regular. Derm: Skin is intact, is healthy with good turgor. Musculoskeletal: Range of motion: limited in DIP of right little finger, PIP of right little finger and MCP of right little finger. 19:41 Reassessment: d/c pending completion of splint. zb Vital Signs: 16:02 BP 134 / 83; Pulse 98; Resp 16 S; Temp 98.3(TE); Pulse Ox 100% on R/A; Weight 72.57 kg ca1 (R); Height 5 ft. 11 in. (180.34 cm) (R); Pain 8/10; 19:08 BP 130 / 79; Pulse 85; Resp 20; Pulse Ox 85% ; sp 16:02 Body Mass Index 22.32 (72.57 kg, 180.34 cm) ca1 ED Course: 15:45 Patient arrived in ED. ag5 15:45 Lorne Jean MD is Private Physician. ag5 16:04 Triage completed. ca1 16:04 Arm band placed on right wrist. ca1 19:15 Kris Greene PA is PHCP. cp 19:16 Morales Waldrop MD is Attending Physician. cp 19:17 Odalys Begum RN is Primary Nurse. iw 19:18 Patient did not have IV access during this emergency room visit. iw 19:33 Nathan Lopes MD is Referral Physician. cp 19:50 Orthoglass splint: Ulnar gutter/Boxer splint applied on right forearm. dh4 19:59 No provider procedures requiring assistance completed. em 20:00 Patient has correct armband on for positive identification. em Administered Medications: 19:36 Drug: Ibuprofen 800 mg Route: PO; zb 20:00 Follow up: Response: No adverse reaction em Outcome: 19:35 Discharge ordered by MD. cp 19:59 Discharged to home ambulatory. em 19:59 Condition: stable 19:59 Discharge instructions given to patient, Instructed on discharge instructions, follow up and referral plans. medication usage, Demonstrated understanding of instructions, follow-up care, medications, splint care, Prescriptions given X 1. 20:00 Patient left the ED. em Signatures: Christine Hernandez Edgar, RN RN em Odalys Begmu RN RN Kris Greene PA PA cp Acob, Cheryl, RN RN [facility] Radha Sams ag5 Saad Hawkins dh4 Kenzie Pratt, RN RN zb
[2020-07-19] MEDS ORDERED: IBUPROFEN 400 MG TAB ONE (19:51)
[2020-07-19 23:31] VITALS: TEMP 98.3
[2020-07-19 23:32] VITALS: BP 130/79; O2SAT 85
== END 2020-07-19 20:00 | disposition home or self-care (01) ==
LOC: ER 15:43
PROC: 2W3CX1Z Immobilization of Right Lower Arm using Splint (ICD-10-PCS; principal; 2020-07-19)
DX: S62.656A Nondisplaced fracture of middle phalanx of right little finger, initial encounter for closed fracture (principal); W23.0XXA Caught, crushed, jammed, or pinched between moving objects, initial encounter; Y93.9 Activity, unspecified; Y92.9 Unspecified place or not applicable
CPT/HCPCS: 99283

== ENCOUNTER 2020-11-14 14:07 | Emergency (ER) | payer OTHER ==
--- OUTSIDE RECORDS SUMMARY | 2020-11-14 14:10 | XMS REPORT | Continuity of Care Document ---
:1980 Author Organization [facility] t Address 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 [id number] 14:19:00 16:31:00 Cynthia Rik [place] [id number] [place] [id number] [place] [id number] [id number] 2020-03-05 2020-03-05 Orders Doctor JAY JAY [id number] 00:00:00 00:00:00 Only Unassigned, LUDIN [id number] [place] [id number] Results This patient has no known results.
--- NOTE | 2020-11-14 16:38 | EDPHYS ---
Physician Documentation [facility] Name: Lorne Madison Age: 40 yrs Sex: Male : 1980 Arrival Date: 11/14/2020 Time: 14:10 Bed 7 Private MD: Kris Jordan HPI: 11/14 16:33 This 40 yrs old Male presents to ER via Ambulatory with complaints of Rash, jmm Other. 16:33 The patient's rash thought to be caused by Contact allergy. The rash is located on the jmm face, right arm, left arm, right leg and left leg. Onset: The symptoms/episode began/occurred gradually, 2 day(s) ago. Associated signs and symptoms: Pertinent positives: burning sensation, itching, Pertinent negatives: fever, nausea, swelling of lips, swelling of throat, swelling of tongue, vomiting, wheezing. The patient has not experienced similar symptoms in the past. Historical: - Allergies: 14:20 Latex, Natural Rubber; ll1 14:20 Adhesives; ll1 - PMHx: 14:20 Bipolar disorder; COLLAPSED LUNG; Depression; scoliosis; Anxiety; ll1 - PSHx: 14:20 back; ll1 - Immunization history:: Client reports receiving the 2nd dose of the Covid vaccine, Flu vaccine is not up to date. - Social history:: Smoking status: Patient denies any tobacco usage or history of. ROS: 16:33 Constitutional: Negative for fever, chills, and weight loss, Cardiovascular: Negative jmm for chest pain, palpitations, and edema, Respiratory: Negative for shortness of breath, cough, wheezing, and pleuritic chest pain. 16:33 Skin: Positive for erythema. 16:33 All other systems are negative. Exam: 16:33 Constitutional: This is a well developed, well nourished patient who is awake, alert, jmm and in no acute distress. 16:33 Eyes: EOMI, no conjunctival erythema appreciated ENT: Moist Mucus Membranes Neck: Trachea midline, Supple Chest/axilla: Normal chest wall appearance and motion. Cardiovascular: Regular rate and rhythm. No edema appreciated Respiratory: Normal respirations, no respiratory distress appreciated Abdomen/GI: Non distended, soft Back: Normal ROM 16:33 MS/ Extremity: Moves all extremities, no obvious deformities appreciated, no edema noted to the lower extremities Neuro: Awake and alert, normal gait Psych: Behavior is normal, Mood is normal, Patient is cooperative and pleasant 16:33 Head/face: facial rash noted consistent with contact dermatitis. 16:33 Skin: contact dermatitis, on the face, right arm, left arm, right leg and left leg. Vital Signs: 14:18 BP 124 / 77; Pulse 87; Resp 16; Temp 98.2; Pulse Ox 100% ; Pain 5/10; ll1 MDM: 16:17 Patient medically screened. [facility] 16:35 Data reviewed: vital signs, nurses notes. Counseling: I had a detailed discussion with ana the patient and/or guardian regarding: the historical points, exam findings, and any diagnostic results supporting the discharge/admit diagnosis, the need for outpatient follow up, to return to the emergency department if symptoms worsen or persist or if there are any questions or concerns that arise at home. ED course: Patient is alert and non toxic in appearance in the ED. No signs of resp distress. Patient advised to follow up with pcp and otherwise given strict return precautions. patient understood and agrees with the plan of care. . Administered Medications: 16:26 Drug: Decadron (dexamethasone) 10 mg Route: IM; Site: right deltoid; jd3 17:00 Follow up: Response: No adverse reaction jd3 Disposition: 11/15 07:29 Co-signature as Attending Physician, Kris King MD I agree with the assessment and [facility] plan of care. Disposition: 11/14/20 16:38 Discharged to Home. Impression: Allergic contact dermatitis due to plants, except food. - Condition is Stable. - Discharge Instructions: Poison Alis Dermatitis, Form - Return To Work. - Prescriptions for Hydroxyzine HCl 25 mg Oral Tablet - take 1 tablet by ORAL route every 6 hours As needed; 30 tablet. Prednisone 20 mg Oral Tablet - take 3 tablets by ORAL route once daily for 12 days 3 tabs PO daily for 3 days, then 2 tabs PO daily for 3 days, then 1 tab PO daily for 3 days, then 1/2 tab PO daily for 3 days; 20 tablet. - Medication Reconciliation Form, Thank You Letter, Antibiotic Education, Prescription Opioid Use form. - Follow up: Private Physician; When: 2 - 3 days; Reason: Recheck today's complaints, Continuance of care, Re-evaluation by your physician. Signatures: Fernando, MD MD dinora Ponce Joel, PA PA [facility] Isma Carpio RN RN jd3 Sal Vicente, RN RN ll1 Corrections: (The following items were deleted from the chart) 11/14 16:38 16:38 11/14/2020 16:38 Discharged to Home. Impression: Allergic contact dermatitis; jm Allergic contact dermatitis due to plants, except food. Condition is Stable. Forms are Medication Reconciliation Form, Thank You Letter, Antibiotic Education, Prescription Opioid Use. Follow up: Private Physician; When: 2 - 3 days; Reason: Recheck today's complaints, Continuance of care, Re-evaluation by your physician. [facility] 16:59 16:38 11/14/2020 16:38 Discharged to Home. Impression: Allergic contact dermatitis due jd3 to plants, except food. Condition is Stable. Forms are Medication Reconciliation Form, Thank You Letter, Antibiotic Education, Prescription Opioid Use. Follow up: Private Physician; When: 2 - 3 days; Reason: Recheck today's complaints, Continuance of care, Re-evaluation by your physician. [facility]
--- NOTE | 2020-11-14 16:38 | ER ---
Nurse's Notes [facility] Name: Lorne Madison Age: 40 yrs Sex: Male : 1980 Arrival Date: 11/14/2020 Time: 14:10 Bed 7 Private MD: Diagnosis: Allergic contact dermatitis due to plants, except food Presentation: 11/14 14:18 Chief complaint: Patient states: Rash to face and body since Sunday. 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 No fever. Coronavirus screen: Client denies travel out of the [place] in the last 14 days. At this time, the client does not indicate any symptoms associated with coronavirus-19. Ebola Screen: Patient denies travel to an Ebola-affected area in the 21 days before illness onset. Initial Sepsis Screen: Does the patient meet any 2 criteria? No. Patient's initial sepsis screen is negative. Does the patient have a suspected source of infection? Yes: Skin breakdown/wound. Risk Assessment: Do you want to hurt yourself or someone else? Patient reports no desire to harm self or others. Onset of symptoms was November 12, 2020. 14:18 Method Of Arrival: Ambulatory ll1 14:18 Acuity: NELLIE 4 ll1 Historical: - Allergies: 14:20 Latex, Natural Rubber; ll1 14:20 Adhesives; ll1 - PMHx: 14:20 Bipolar disorder; COLLAPSED LUNG; Depression; scoliosis; Anxiety; ll1 - PSHx: 14:20 back; ll1 - Immunization history:: Client reports receiving the 2nd dose of the Covid vaccine, Flu vaccine is not up to date. - Social history:: Smoking status: Patient denies any tobacco usage or history of. Screenin:57 Abuse screen: Denies threats or abuse. Nutritional screening: No deficits noted. jd3 Tuberculosis screening: No symptoms or risk factors identified. Fall Risk Ambulatory Aid- None/Bed Rest/Nurse Assist (0 pts). Gait- Normal/Bed Rest/Wheelchair (0 pts) Mental Status- Oriented to own ability (0 pts). Total Cordero Fall Scale indicates No Risk (0-24 pts). Assessment: 16:00 General: Appears in no apparent distress. comfortable, Behavior is calm, cooperative, jd3 appropriate for age. Pain: Complains of pain in face Quality of pain is described as stinging. Neuro: Level of Consciousness is awake, alert, obeys commands, Oriented to person, place, time, situation. Cardiovascular: Denies chest pain, Capillary refill < 3 seconds Patient's skin is warm and dry. Respiratory: Airway is patent Respiratory effort is even, unlabored, Respiratory pattern is regular, symmetrical, Denies cough, shortness of breath. GI: No signs and/or symptoms were reported involving the gastrointestinal system. : No signs and/or symptoms were reported regarding the genitourinary system. EENT: No signs and/or symptoms were reported regarding the EENT system. Derm: Skin is intact, Skin is dry, Skin is normal, Skin temperature is warm Rash noted that is itchy, red, on face, right arm, left arm, right leg and left leg. Musculoskeletal: Circulation, motion, and sensation intact. Range of motion: intact in all extremities. 16:55 Reassessment: Patient appears in no apparent distress at this time. Patient and/or jd3 family updated on plan of care and expected duration. Pain level reassessed. Patient is alert, oriented x 3, equal unlabored respirations, skin warm/dry/pink. Vital Signs: 14:18 BP 124 / 77; Pulse 87; Resp 16; Temp 98.2; Pulse Ox 100% ; Pain 5/10; ll1 ED Course: 14:10 Patient arrived in ED. bp1 14:15 Arm band placed on. ll1 14:20 Triage completed. ll1 16:04 Patient placed in an exam room, on a stretcher. ll1 16:09 [facility]acio Burrell [facility] raven 16:09 Kris King MD is Attending Physician. [facility] 16:09 Isma Carpio RN is Primary Nurse. jd3 16:57 Patient has correct armband on for positive identification. Bed in low position. Call jd3 light in reach. Side rails up X 1. Pulse ox on. NIBP on. 16:58 No provider procedures requiring assistance completed. Patient did not have IV access jd3 during this emergency room visit. Administered Medications: 16:26 Drug: Decadron (dexamethasone) 10 mg Route: IM; Site: right deltoid; jd3 17:00 Follow up: Response: No adverse reaction jd3 Outcome: 16:38 Discharge ordered by . ravenm 16:58 Discharged to home ambulatory. jd3 16:58 Condition: stable 16:58 Discharge instructions given to patient, Instructed on discharge instructions, follow up and referral plans. medication usage, Demonstrated understanding of instructions, follow-up care, medications, Prescriptions given X 2. 16:59 Patient left the ED. jd3 Signatures: Anastacio Burrell PA PA jmm Davies, Jonathon, RN RN jd3 Sal Vicente RN RN ll1 Nicki Hernandez [facility] Corrections: (The following items were deleted from the chart) 15:35 14:18 Pulse 87bpm; Resp 16bpm; Pulse Ox 100%; Temp 98.2F; Pain 5/10; ll1 ll1
[2020-11-14] MEDS ORDERED: dexAMETHasone 10 MG/ML VIAL ONE (16:43)
[2020-11-14 17:08] VITALS: BP 124/77; TEMP 98.2; O2SAT 100
== END 2020-11-14 16:59 | disposition home or self-care (01) ==
LOC: ER 14:07
DX: L23.7 Allergic contact dermatitis due to plants, except food (principal); Z91.040 Latex allergy status; Z91.048 Other nonmedicinal substance allergy status
CPT/HCPCS: 96372; 99283; J1100

== ENCOUNTER 2021-04-22 06:42 | Day surgery (SDC) | payer OTHER ==
[2021-04-22] MEDS ORDERED: Ringers Lactate 1,000 ML IV ONE (07:09)
[2021-04-22] MEDS ORDERED: MIDAZOLAM HCL 2 MG/2 ML INJ ONE (07:30)
[2021-04-22] MEDS ORDERED: propofoL 200 MG/20 ML VIAL IV ONE (07:31)
[2021-04-22] MEDS ORDERED: LIDOCAINE 1% MPF 2 ML AMPULE ONE (07:31)
[2021-04-22] MEDS ORDERED: FENTANYL CITR 100 MCG/2 ML ONE (07:31)
[2021-04-22] MEDS: BUPIVACAINE 0.25% PF 30 ML VIAL ONE ×2 (07:33→08:30)
[2021-04-22] MEDS ORDERED: GLYCOPYRROLATE 0.2 MG/ML SYR ONE (07:34)
[2021-04-22] MEDS ORDERED: ONDANSETRON 4 MG/2 ML VIAL ONE (07:35)
[2021-04-22] MEDS ORDERED: KETOROLAC 30 MG/ML INJ ONE (07:35)
[2021-04-22] MEDS ORDERED: dexAMETHasone 10 MG/ML VIAL ONE (07:35)
[2021-04-22] MEDS ORDERED: ROCURONIUM 50 MG/5 ML VIAL IV ONE (07:38)
[2021-04-22] MEDS: CEFAZOLIN/NS 1gm 1 GM/50 ML BAG ONE ×2 (08:06→08:20)
[2021-04-22] MEDS ORDERED: EPHEDRINE SULF 50 MG/ML VIAL ONE (08:18)
--- NOTE | 2021-04-22 08:57 | P.OP ---
Preoperative diagnosis: Lower Back Recurrent Drainaing Cyst Postoperative diagnosis: Lower Back Recurrent Drainaing Cyst Primary procedure: Wide local excision of Lower Back Recurrent Drainaing Cyst Anesthesia: GETA + Local Estimated blood loss: <5cc Specimen: back tissue - fistulous appearing Findings: Fistula tract into fascia overlying muscle ~ 5 cm Complications: None Drain(s): Other (CÉSAR - Negative pressure wound vac) Transferred to: Recovery Room Condition: Good
[2021-04-22] MEDS: MEPERIDINE HCL 50 MG/ML ONE ×2 (09:10→09:17)
[2021-04-22 10:52] VITALS: BP 116/72; TEMP 97; O2SAT 100
--- NOTE | 2021-04-22 16:46 | OP ---
Date of Procedure: 04/22/2021 Surgeon: Troy Boles MD, Preoperative Diagnosis: Lower back recurrent draining cyst. Postoperative Diagnosis: Lower back recurrent draining cyst. Procedure Performed: Wide local excision of lower back recurrent draining cyst with sinus. Anesthesia: General endotracheal plus local with 0.25% Marcaine. Estimated Blood Loss: Less than 5 cc. Specimen: Back tissue fistulous in appearance. Findings: A fistulous tract extending from the skin surface, tracking superiorly from the skin openi ng, paralleling the fascia overlying the muscle to the left of midline, not obviously involving any h ardware from patient's previous spinal alfreda placement. Complications: None. Drains: A CÉSAR negative pressure wound VAC was placed. Disposition: The patient was transferred to recovery room in good condition. Procedure In Detail: After informed consent was obtained, the patient was brought to the operating r oom, prepped and draped in the usual sterile fashion. After adequate anesthesia achieved, I demarcat ed an ellipse around the fistulous cystic tract, dissected down through subcutaneous tissues with dino ctrocautery to expose a fistulous tract, which was found to be tubular stretching approximately 5 cm superiorly from the skin opening. I circumferentially dissected this out using a combination of blun t and sharp dissection with electrocautery. I placed a 2-0 silk into the distal aspect of this at th e fascia of the overlying the muscle and performed stick-tie at this point. I then ligated the struc ture and removed it and sent off for pathologic examination. I copiously irrigated the cavity at thi s point, and achieved hemostasis with electrocautery. I then closed the cavity using 3-0 Vicryl sutu re in the deep dermal plane and skin was closed with 4-0 Monocryl in a running fashion and a wound VA C CÉSAR negative pressure wound therapy system was applied overlying the incision with good function a t this point and negative pressure was applied at this point. The patient tolerated the procedure we ll without complication and transferred to PACU in good condition. All counts were correct at the en d of the case. DAVID/MODL Voice ID: [id number] Report ID: [id number]
== END 2021-04-22 10:46 | disposition home or self-care (01) ==
LOC: OR 06:42
PROVIDERS: ATTEND Surgery
PROC: 0JB70ZZ Excision of Back Subcutaneous Tissue and Fascia, Open Approach (ICD-10-PCS; principal; 2021-04-22 08:00)
DX: L72.0 Epidermal cyst (principal); Z20.822 Contact with and (suspected) exposure to COVID-19
CPT/HCPCS: 88304; 11406; U0003; J2704; J2250; J3010; J1100; J2175; J0690; J7120; J2405

== ENCOUNTER 2022-08-05 07:27 | Emergency (ER) | payer OTHER ==
[2022-08-05 08:42] LABS: Absolute Lymphocytes (CBC) 1.7 K/uL (0.7-4.9); Hematocrit 41.3 % (39.6-49.0); Lymphocytes % 21.2 % (15.3-44.8); MCV 88.6 fL (80-100); MPV 9.9 fL (7.6-11.3); RBC Red Blood Cell Count 4.66 M/uL (4.33-5.43)
[2022-08-05 09:00] LABS: Potassium 3.8 mmol/L (3.5-5.1); Troponin High Sensitivity 3.6 pg/mL (<58.9)
--- NOTE | 2022-08-05 09:07 | RAD REPORT ---
EXAM DESCRIPTION: RAD - Chest Single View - 08/05/2022 8:31 am CLINICAL HISTORY: CHEST PAIN COMPARISON: Chest Single View dated 05/26/2020; Chest Single View dated 11/13/2018; Chest Single View dated 08/17/2018; CHEST SINGLE VIEW dated 09/06/2014 FINDINGS: Lines: None. Lungs: Mild scarring in the right lower lobe. Pleural: Pleural thickening laterally in the right lower lobe is chronic. Cardiac: The heart size is within normal limits. Mediastinum: Within normal limits. Bones: No acute fractures. Chronic rib deformity on the right side. Other: None IMPRESSION: No acute cardiopulmonary disease.
[2022-08-05 09:15] LABS: SARS-COV-2 RT PCR NEGATIVE (NEGATIVE)
--- NOTE | 2022-08-05 10:36 | EDPHYS ---
Physician Documentation [facility] Name: Lorne Madison Age: 41 yrs Sex: Male : 1980 Arrival Date: 08/05/2022 Time: 07:29 Bed 15 Private MD: Lorne Jean E ED Physician Abilio Villa HPI: 08/05 08:14 This 41 yrs old Male presents to ER via Ambulatory with complaints of Chest Pain, jmm General Weakness. 08:14 The patient or guardian reports chest pain that is located primarily in the substernal [facility] area. The pain does not radiate. Associated signs and symptoms: Pertinent positives: cough, weakness. The chest pain is described as aching. Duration: The patient or guardian reports a single episode, that is still ongoing. Modifying factors: The symptoms are alleviated by nothing. the symptoms are aggravated by cough. This is a 41 year old male with a history of bipolar, depression that presents to the ED with complaints of cough for 2 days, chest pain, weakness. Denies fever. States coworkers have recently been diagnosed with covid. . Historical: - Allergies: 07:39 Adhesives; iw - Home Meds: 07:39 None [Active]; iw - PMHx: 07:39 Anxiety; Bipolar disorder; COLLAPSED LUNG; Depression; scoliosis; iw - Immunization history:: Client reports receiving the 2nd dose of the Covid vaccine. - Social history:: Smoking status: Patient denies any tobacco usage or history of. ROS: 08:14 Constitutional: Negative for fever, chills, and weight loss. jmm 08:14 Cardiovascular: Positive for chest pain. 08:14 All other systems are negative. Exam: 08:14 Constitutional: This is a well developed, well nourished patient who is awake, alert, jmm and in no acute distress. Head/Face: atraumatic. Eyes: EOMI, no conjunctival erythema appreciated ENT: Moist Mucus Membranes Neck: Trachea midline, Supple Chest/axilla: Normal chest wall appearance and motion. Cardiovascular: Regular rate and rhythm. No edema appreciated Respiratory: Normal respirations, no respiratory distress appreciated Abdomen/GI: Non distended Back: Normal ROM Skin: General appearance color normal MS/ Extremity: Moves all extremities, no obvious deformities appreciated, no edema noted to the lower extremities Neuro: Awake and alert Psych: Behavior is normal, Mood is normal, Patient is cooperative and pleasant 08:30 ECG was reviewed by the Attending Physician. [facility] Vital Signs: 07:38 BP 138 / 79; Pulse 89; Resp 16; Pulse Ox 97% on R/A; Weight 73.94 kg; Height 5 ft. 11 iw in. (180.34 cm); 08:33 BP 128 / 80; Pulse 88; Resp 16; Pulse Ox 99% on R/A; hb 09:11 BP 114 / 79; Pulse 70; Resp 16; Pulse Ox 99% on R/A; hb 10:25 BP 124 / 78; Pulse 72; Resp 15; Pulse Ox 100% on R/A; iw 07:38 Body Mass Index 22.73 (73.94 kg, 180.34 cm) iw MDM: 08:11 Patient medically screened. [facility] 09:39 Data reviewed: vital signs, nurses notes. [facility] 09:43 Data reviewed: lab test result(s), EKG, radiologic studies, plain films. [facility] 10:34 Differential diagnosis: acute myocardial infarction, acute pericarditis, chest wall [facility] pain, pneumonia, Viral syndrome. Independent interpretation of the following test(s) in the Emergency Department X-Ray: My interpretation is No infiltrate appreciated. Scoring Tools HEART Score: History: ECG: Age: Risk Factors: Troponin: Total Score = 2. Counseling: I had a detailed discussion with the patient and/or guardian regarding: the historical points, exam findings, and any diagnostic results supporting the discharge/admit diagnosis, lab results, radiology results, the need for outpatient follow up, to return to the emergency department if symptoms worsen or persist or if there are any questions or concerns that arise at home. 08/05 08:11 Order name: Basic Metabolic Panel; Complete Time: 09:08 hb 08/05 08:11 Order name: CBC with Diff; Complete Time: 08:50 08/05 08:11 Order name: Troponin HS; Complete Time: 09: hb 08/05 08:11 Order name: XRAY Chest (1 view); Complete Time: 09:08 hb 08/05 08:11 Order name: COVID-19/FLU A+B; Complete Time: 09:18 hb 08/05 09:43 Order name: Troponin High Sensitivity: repeat; Complete Time: 10:34 [facility] 08/05 08:11 Order name: EKG; Complete Time: 08:12 hb 08/05 08:11 Order name: Cardiac monitoring; Complete Time: hb 08/05 08:11 Order name: EKG - Nurse/Tech; Complete Time: hb 08/05 08:11 Order name: IV Saline Lock; Complete Time: hb 08/05 08:11 Order name: Labs collected and sent; Complete Time: hb 08/05 08:11 Order name: O2 Per Protocol; Complete Time: hb 08/05 08:11 Order name: O2 Sat Monitoring; Complete Time: hb EC:30 Rate is 78 beats/min. Rhythm is regular. QRS [place] is Normal. AL interval is normal. QRS jmm interval is normal. QT interval is normal. No Q waves. T waves are Normal. No ST changes noted. Reviewed by me. Administered Medications: No medications were administered Disposition: 14:36 Co-signature as Attending Physician, Abilio Villa MD I reviewed the patient's care rt provided by the Advanced Practice Provider and agree with the diagnosis and treatment plan. Disposition Summary: 08/05/22 10:36 Discharge Ordered Location: Home jmm Condition: Stable jmm Diagnosis - Cough jmm - Chest pain, unspecified jmm Followup: jm - With: Lorne Jean MD - When: 2 - 3 days - Reason: Recheck today's complaints, Continuance of care, Re-evaluation by your physician Discharge Instructions: - Discharge Summary Sheet jmm - Nonspecific Chest Pain, Adult jmm - Cough, Adult jmm Forms: - Medication Reconciliation Form jmm - Thank You Letter jm - Antibiotic Education jmm - Prescription Opioid Use jm Prescriptions: - Bromfed DM 2-30-10 mg/5 mL Oral syrup - take 10 milliliter by ORAL route every 4 hours; 200 milliliter; Refills: 0, jmm Product Selection Permitted Signatures: Dispatcher [employer] Anastacio Ricketts PA PA jmm Williams, Irene, RN RN iw Baxter, Heather, RN RN hb Turkington, Ryan, MD MD rt Corrections: (The following items were deleted from the chart) 07:39 07:39 Allergies: Latex, Natural Rubber; iw latrice
--- NOTE | 2022-08-05 10:36 | ER ---
Nurse's Notes [facility] Name: Lorne Madison Age: 41 yrs Sex: Male : 1980 Arrival Date: 08/05/2022 Time: 07:29 Bed 15 Private MD: Lorne Jean E Diagnosis: Cough;Chest pain, unspecified Presentation: 08/05 07:38 Chief complaint: Patient states: my body feels weak, I'm having chest pains and a dry iw cough , started 2 days ago, I wasn't eating well yesterday. Coronavirus screen: Client presents with at least one sign or symptom that may indicate coronavirus-19. Ebola Screen: Patient negative for fever greater than or equal to 101.5 degrees Fahrenheit, and additional compatible Ebola Virus Disease symptoms Patient denies exposure to infectious person. Patient denies travel to an Ebola-affected area in the 21 days before illness onset. No symptoms or risks identified at this time. Initial Sepsis Screen: Does the patient meet any 2 criteria? No. Patient's initial sepsis screen is negative. Does the patient have a suspected source of infection? No. Patient's initial sepsis screen is negative. Risk Assessment: Do you want to hurt yourself or someone else? Patient reports no desire to harm self or others. Onset of symptoms was August 03, 2022. 07:38 Method Of Arrival: Ambulatory iw 07:38 Acuity: NELLIE 3 iw Historical: - Allergies: 07:39 Adhesives; iw - Home Meds: 07:39 None [Active]; iw - PMHx: 07:39 Anxiety; Bipolar disorder; COLLAPSED LUNG; Depression; scoliosis; iw - Immunization history:: Client reports receiving the 2nd dose of the Covid vaccine. - Social history:: Smoking status: Patient denies any tobacco usage or history of. Screenin:45 [facility] ED Fall Risk Assessment (Adult) Score/Fall Risk Level 0 - 2 = Low Risk hb Oriented to surroundings, Maintained a safe environment. Abuse screen: Denies threats or abuse. Denies injuries from another. Nutritional screening: No deficits noted. Tuberculosis screening: No symptoms or risk factors identified. Assessment: 08:33 General: Appears in no apparent distress. Behavior is calm, cooperative. Pain: Pain hb currently is 3 out of 10 on a pain scale. Neuro: Level of Consciousness is awake, alert, obeys commands, Oriented to person, place, time, situation. Cardiovascular: Reports chest pain, Patient's skin is warm and dry. Respiratory: Reports cough that is Respiratory effort is even, unlabored, Respiratory pattern is regular, symmetrical. GI: No signs and/or symptoms were reported involving the gastrointestinal system. : No signs and/or symptoms were reported regarding the genitourinary system. EENT: No signs and/or symptoms were reported regarding the EENT system. Derm: Skin is pink, warm \T\ dry. Musculoskeletal: No signs and/or symptoms reported regarding the musculoskeletal system. 09:11 Reassessment: Patient appears in no apparent distress at this time. Patient and/or hb family updated on plan of care and expected duration. Pain level reassessed. Patient is alert, oriented x 3, equal unlabored respirations, skin warm/dry/pink. 10:24 Reassessment: Patient appears in no apparent distress at this time. Patient and/or iw family updated on plan of care and expected duration. Pain level reassessed. Patient is alert, oriented x 3, equal unlabored respirations, skin warm/dry/pink. Vital Signs: 07:38 BP 138 / 79; Pulse 89; Resp 16; Pulse Ox 97% on R/A; Weight 73.94 kg; Height 5 ft. 11 iw in. (180.34 cm); 08:33 BP 128 / 80; Pulse 88; Resp 16; Pulse Ox 99% on R/A; hb 09:11 BP 114 / 79; Pulse 70; Resp 16; Pulse Ox 99% on R/A; hb 10:25 BP 124 / 78; Pulse 72; Resp 15; Pulse Ox 100% on R/A; iw 07:38 Body Mass Index 22.73 (73.94 kg, 180.34 cm) ED Course: 07:29 Patient arrived in ED. as 07:29 Lorne Jean MD is Private Physician. as 07:39 Triage completed. iw 07:39 Arm band placed on. iw 07:42 Chandni Vidales, RN is Primary Nurse. hb 07:45 Patient has correct armband on for positive identification. hb 08:04 Anastacio Burrell PA is PHCP. jmm 08:04 Abilio Villa MD is Attending Physician. jmm 08:31 Inserted saline lock: 20 gauge in right antecubital area, using aseptic technique. hb Blood collected. 08:32 COVID-19/FLU A+B Sent. hb 08:32 CBC with Diff Sent. hb 08:32 XRAY Chest (1 view) Sent. hb 08:32 Troponin HS Sent. hb 08:32 Basic Metabolic Panel Sent. hb 08:33 XRAY Chest (1 view) In Process Unspecified. EDMS 10:05 Troponin High Sensitivity: repeat Sent. rs5 10:35 Lorne Jean MD is Referral Physician. [facility] 10:45 No provider procedures requiring assistance completed. IV discontinued, intact, hb bleeding controlled, No redness/swelling at site. Administered Medications: No medications were administered Medication: 07:45 VIS not applicable for this client. hb Outcome: 10:36 Discharge ordered by . [facility] 10:45 Discharged to home ambulatory. hb 10:45 Condition: stable 10:45 Discharge instructions given to patient, Instructed on discharge instructions, follow up and referral plans. medication usage, Demonstrated understanding of instructions, follow-up care, medications, Prescriptions given X 1. 10:45 Patient left the ED. hb Signatures: Dispatcher [employer] EDMS Anastacio Burrell PA PA Christine Daniels as Odalys Begum, RN RN iw Chandni Vidales, ELSIE RN Bernardino Linda rs5 Corrections: (The following items were deleted from the chart) 07:39 07:39 Allergies: Latex, Natural Rubber; iw
[2022-08-05 11:13] VITALS: BP 124/78; O2SAT 100
--- NOTE | 2022-08-07 12:42 | EKG ---
Test Date: 2022-08-05 Test Time: 08:28:28 Fleet Sales Associate: HB MEASUREMENT RESULTS: Intervals: Rate: 78 PA: 144 QRSD: 92 QT: 364 QTc: 414 [place]: P: 56 PA: 144 QRS: 77 T: 76 INTERPRETIVE STATEMENTS: Normal sinus rhythm Normal ECG Compared to ECG 05/26/2020 19:43:06 Sinus arrhythmia no longer present Electronically Signed On 08-07-22 12:37:21 [employer] by Robbin Valentine
== END 2022-08-05 10:45 | disposition home or self-care (01) ==
LOC: ER 07:27
DX: R05.9 Cough, unspecified (principal); R07.89 Other chest pain; Z20.822 Contact with and (suspected) exposure to COVID-19; Z91.048 Other nonmedicinal substance allergy status
CPT/HCPCS: 93005; 85025; 80048; 36415; 84484 ×2; 0240U; 71045; 99284

== ENCOUNTER 2024-07-15 00:41 | Emergency (ER) | payer BC, OTHER ==
[2024-07-15] MEDS ORDERED: NA CHLORIDE 0.9% 1,000 ML ONE (01:39)
[2024-07-15] MEDS ORDERED: ONDANSETRON 4 MG/2 ML VIAL ONE (01:39)
[2024-07-15] MEDS ORDERED: FAMOTIDINE 20 MG/2 ML VIAL IV ONE (01:39)
[2024-07-15 01:51] LABS: Absolute Lymphocytes (CBC) 0.3 K/uL (0.7-4.9); Absolute Monocytes 0.4 K/uL (0.1-1.3); Absolute Neutrophil 10.6 K/uL (1.8-8.0); Basophils % 0.1 % (0-1.3); Eosinophils % 0.3 % (0-4.4); Hematocrit 47.6 % (39.6-49.0); Hemoglobin 16.6 g/dL (13.6-17.9); MCH 30.8 pg (27.0-35.0); MCHC 34.8 g/dL (32.0-36.0); MCV 88.5 fL (80-100); MPV 9.5 fL (7.6-11.3); Monocytes % 3.2 % (3.3-12.3); Neutrophils % 93.4 % (41.7-73.7); Platelets 219 thou/uL (152-406); RBC Red Blood Cell Count 5.38 M/uL (4.33-5.43); Red Cell Distribution Width 13.5 % (12.1-15.2)
[2024-07-15 01:55] LABS: PT Prothrombin Time 14.1 SECONDS (9.4-12.5); Protime INR 1.35
[2024-07-15 02:08] LABS: ALT/SGPT 21 U/L (16-61); AST/SGOT 16 U/L (15-37); Albumin/Globulin Ratio 0.9 (1.1-1.8); Alkaline Phosphatase 91 U/L (45-117); Anion Gap 11.5 mEq/L (5.0-15.0); BUN Blood Urea Nitrogen 25 mg/dL (7-18); Bicarbonate 25 mEq/L (21-32); Bilirubin Direct 0.3 mg/dL (0-0.2); Bilirubin Indirect, Calculated 0.8 mg/dL (0.2-0.8); Bilirubin Total 1.1 mg/dL (0.2-1.0); Globulin 4.6 g/dL (2.3-3.5); Glomerular Filtration Rate 76 ml/min (=/>90); Glucose Level 146 mg/dL (74-106); Lipase 25 U/L (13-75); Magnesium 2.3 mg/dL (1.6-2.4); Potassium 3.5 mEq/L (3.5-5.1); Protein, Total 8.6 g/dL (6.4-8.2); Sodium Level 138 mEq/L (136-145)
[2024-07-15 02:11] LABS: Troponin High Sensitivity < 3.0 pg/mL (<58.9)
[2024-07-15 02:17] LABS: Band Neutrophils 21 % (0-1); Blood Morphology Comment NOT SEEN (NOT SEEN); Differential Total Cells Count 100; Lymphocytes 3 % (15-42); Monocytes 1 % (0-10); Platelet Estimate ADEQ; Segmented Neutrophils 75 % (40-80)
--- NOTE | 2024-07-15 03:19 | RAD REPORT ---
EXAM DESCRIPTION: Head Brain Wo Cont 07/15/2024 3:09 AM DUCT LAYER SUPERVISOR CLINICAL HISTORY: 43 years, Male, vomiting; Dizziness COMPARISON: None FINDINGS: Multiple transaxial tomograms of the brain were obtained from the base of the skull to the vertex wit hout contrast. An individualized dose optimization technique, Automated Exposure Control, was utilized for the perfo rmed procedure. Brain: Brain parenchyma as well as the arreola-white matter differentiation demonstrate to be within nor mal limits. There is no evidence for acute intraparenchymal hemorrhage. There is no midline shifts and/or mass effect. No focal areas of hypodensities. Ventricles: Lateral ventricles and cisterns displace normal appearance. Vasculature: No visualized abnormalities in the arteries or dural venous sinuses. Scalp/skull: The calvarium demonstrate to be intact with no evidence for acute bony injuries. Sinuses: The visualized paranasal sinuses and mastoid air cells demonstrate to be clear. Orbits: No significant abnormalities in the visualized orbital structures. IMPRESSION: No acute intracranial hemorrhage. Unremarkable CT scan of the head without contrast. Electronically signed by: Desean Bocanegra MD 07/15/2024 03:09 AM DUCT LAYER SUPERVISOR RP Due to temporary technical issues with the PACS/[employer] reporting system, reports are being maddison d by the in-house radiologist without review as a courtesy to ensure prompt reporting the interpreting radiologist is fully responsible for the content of the report. Transcribed Date/Time: 07/15/2024 3:18 AM
--- NOTE | 2024-07-15 04:33 | RAD REPORT ---
CLINICAL HISTORY: Vomiting, abdominal pain. COMPARISON: CT Abdomen Pelvis 04/12/2020. TECHNIQUE: CT ABDOMEN PELVIS WITH IV CONTRAST on 07/15/2024 2:21 AM PATIENT SAFETY ATTENDANT This exam was performed according to our departmental dose-optimization program, which includes autom ated exposure control, adjustment of the mA and/or kV according to patient size and/or use of iterative reconstruction technique. FINDINGS: There is a small chronic right pleural effusion. There is right basilar rounded atelectasis. Abdomen: The liver is normal in appearance. There is no biliary dilatation. Gallbladder is normal in appearance. There is a questionable mass within the upper stomach measuring 4.0 x 4.4 cm, containing multiple small calcifications. The pancreas and spleen are normal in appearance. The adren al glands and kidneys are unremarkable. Abdominal aorta is normal in course and caliber without aneurysm. There is no free air. There is no r etroperitoneal adenopathy. Pelvis: There is no bowel obstruction. Urinary bladder is unremarkable. There is no free fluid. Appen lisa is normal. Skeleton: There are no acute osseous findings. No suspicious bony lesions. Thoracolumbar fusion was p erformed. IMPRESSION: Questionable upper gastric mass. Recommend endoscopy. Electronically signed by: Janes Abarca MD 07/15/2024 04:23 AM PATIENT SAFETY ATTENDANT RP Due to temporary technical issues with the PACS/[employer] reporting system, reports are being maddison d by the in-house radiologist without review as a courtesy to ensure prompt reporting the interpreting radiologist is fully responsible for the content of the report. Transcribed Date/Time: 07/15/2024 4:32 AM
--- NOTE | 2024-07-15 04:36 | ER ---
Nurse's Notes [facility] Name: Lorne Madison Age: 43 yrs Sex: Male : 1980 Arrival Date: 07/15/2024 Time: 00:41 Bed 7 Private MD: Diagnosis: Gastritis, possible gastric mass Presentation: 07/15 01:22 Chief complaint: Patient states: I'm pale, cold and vomited two times. Coronavirus vc1 screen: Client denies travel out of the [place] in the last 14 days. At this time, the client does not indicate any symptoms associated with coronavirus-19. Ebola Screen: Patient negative for fever greater than or equal to 101.5 degrees Fahrenheit, and additional compatible Ebola Virus Disease symptoms Patient denies exposure to infectious person. Patient denies travel to an Ebola-affected area in the 21 days before illness onset. No symptoms or risks identified at this time. Initial Sepsis Screen: Does the patient meet any 2 criteria? No. Patient's initial sepsis screen is negative. Does the patient have a suspected source of infection? No. Patient's initial sepsis screen is negative. Risk Assessment: Do you want to hurt yourself or someone else? Patient reports no desire to harm self or others. Onset of symptoms was July 15, 2024. Care prior to arrival: None. Activity prior to arrival: None. Mechanism of Injury: No Mechanism of Injury. Transition of care: patient was not received from another setting of care. 01:22 Method Of Arrival: Ambulatory vc1 01:22 Acuity: NELLIE 3 vc1 Historical: - Allergies: : Adhesives; vc1 - PMHx: :28 Anxiety; Bipolar disorder; COLLAPSED LUNG; Depression; scoliosis; vc1 - PSHx: : None; vc1 - Immunization history:: Client reports receiving the 2nd dose of the Covid vaccine, Flu vaccine is up to date. - Infectious Disease History:: Denies. - Social history:: Smoking status: Patient denies any tobacco usage or history of. Screenin: [facility] ED Fall Risk Assessment (Adult) History of falling in the last 3 months, vc1 including since admission No falls in past 3 months (0 pts) Confusion or Disorientation No (0 pts) Intoxicated or Sedated No (0 pts) Impaired Gait No (0 pts) Mobility Assist Device Used No (0 pt) Altered Elimination No (0 pt) Score/Fall Risk Level 0 - 2 = Low Risk Oriented to surroundings, Maintained a safe environment, Educated pt \T\ family on fall prevention, incl call for assistance when getting out of bed. Abuse screen: Denies threats or abuse. Nutritional screening: No deficits noted. Tuberculosis screening: No symptoms or risk factors identified. Assessment: 02:01 General: Appears in no apparent distress. uncomfortable, Behavior is calm, cooperative, cp4 appropriate for age. Pain: Denies pain. Neuro: Level of Consciousness is awake, alert, obeys commands, Oriented to person, place, time, situation. Cardiovascular: Patient's skin is warm and dry. Rhythm is sinus rhythm. Respiratory: Airway is patent Respiratory effort is even, unlabored. GI: Abdomen is round non-distended, Bowel sounds present X 4 quads. Reports nausea, vomiting. : No signs and/or symptoms were reported regarding the genitourinary system. EENT: No signs and/or symptoms were reported regarding the EENT system. Derm: No signs and/or symptoms reported regarding the dermatologic system. Derm: No signs and/or symptoms reported regarding the dermatologic system. Musculoskeletal: No signs and/or symptoms reported regarding the musculoskeletal system. 04:05 Reassessment: No changes from previously documented assessment. Patient and/or family cp4 updated on plan of care and expected duration. Pain level reassessed. Patient is alert, oriented x 3, equal unlabored respirations, skin warm/dry/pink. Vital Signs: 01:22 BP 111 / 71; Pulse 86; Resp 18; Temp 97.6; Pulse Ox 100% ; Weight 72.57 kg; Height 5 vc1 ft. 10 in. ; Pain 0/10; 02:55 BP 127 / 106; Pulse 107; Resp 18; Pulse Ox 99% on R/A; br2 04:34 BP 132 / 84; Pulse 104; Resp 18; Pulse Ox 99% ; cp4 01:22 Body Mass Index 22.96 (72.57 kg, 177.8 cm) vc1 01:22 Pain Scale: Adult vc1 ED Course: 00:48 Patient arrived in ED. im 00:53 Kris Greene PA is PHCP. cp 00:53 Tre Hernandez MD is Attending Physician. cp 01:28 Triage completed. vc1 01:29 Arm band placed on right wrist. vc1 01:54 Inserted saline lock: 20 gauge in right antecubital area, using aseptic technique. oe Blood collected. Flushed with 10 mL NS. 02:01 Monique Santiago is Primary Nurse. cp4 02:01 Placed in gown. Bed in low position. Call light in reach. Side rails up X 1. cp4 02:01 No provider procedures requiring assistance completed. Initial lab(s) drawn, by ED cp4 staff, sent to lab. 02:06 Chest Single View In Process Unspecified. EDMS 02:29 CT Head Brain wo Cont In Process Unspecified. EDMS 02:52 CT Abd/Pelvis - IV Contrast Only In Process Unspecified. EDMS 04:35 Negrito Garcia MD is Referral Physician. sp3 04:42 Provided Education on: gastritis. cp4 04:42 intact, bleeding controlled, No redness/swelling at site. Pressure dressing applied. cp4 Administered Medications: 01:43 Drug: NS 0.9% IV 1000 ml IV at 1 bolus Per protocol; to be given as a bolus over 60 cp4 minutes Route: IV; Rate: 1 bolus; Site: right antecubital; 04:42 Follow up: IV Status: Infusion continued cp4 01:44 Drug: Ondansetron IVP 4 mg IVP once; over 2 minutes Route: IVP; Site: right antecubital;cp4 04:42 Follow up: Response: No adverse reaction cp4 01:44 Drug: Famotidine IVP 20 mg IVP once; dilute with 10 mL 0.9% NaCl; give over 2 minutes cp4 Route: IVP; Site: right antecubital; 04:42 Follow up: Response: No adverse reaction cp4 Medication: 02:01 VIS not applicable for this client. cp4 Outcome: 04:36 Discharge ordered by MD. sp3 04:42 Discharged to home ambulatory, cp4 04:42 Condition: stable 04:42 Discharge instructions given to patient, Instructed on discharge instructions, follow up and referral plans. medication usage, Demonstrated understanding of instructions, follow-up care, medications, Prescriptions given X 4, 04:43 Patient left the ED. cp4 Signatures: Dispatcher [employer] EDKY Kris Greene PA PA cp Espinosa, Orlando oe Tre Hernandez, MD MD sp3 Claire Lopez RN RN vc1 Viola Bowers Christina cp4 Drea Fletcher RN RN br2
--- NOTE | 2024-07-15 04:36 | EDPHYS ---
Physician Documentation [facility] Name: Lorne Madison Age: 43 yrs Sex: Male : 1980 Arrival Date: 07/15/2024 Time: 00:41 Bed 7 Private MD: ED Physician Tre Hernandez HPI: 07/15 01:25 This 43 yrs old Male presents to ER via Ambulatory with complaints of Dizziness, cp Vomiting. 01:25 The patient presents to the emergency department with nausea, with "dry heaves", cp vomiting, 2 times today. 01:25 Onset: The symptoms/episode began/occurred today. Associated signs and symptoms: cp Pertinent positives: abdominal pain, chest pain, cough, dizziness. Historical: - Allergies: : Adhesives; vc1 - PMHx: : Anxiety; Bipolar disorder; COLLAPSED LUNG; Depression; scoliosis; vc1 - PSHx: : None; vc1 - Immunization history:: Client reports receiving the 2nd dose of the Covid vaccine, Flu vaccine is up to date. - Infectious Disease History:: Denies. - Social history:: Smoking status: Patient denies any tobacco usage or history of. ROS: 01:30 Constitutional: Positive for chills, Negative for body aches, fever, cp 01:30 Eyes: Negative for injury, pain, redness, and discharge, cp 01:30 ENT: Negative for drainage from ear(s), ear pain, sore throat, difficulty swallowing, difficulty handling secretions, 01:30 Cardiovascular: Positive for chest pain, 01:30 Respiratory: Negative for cough, shortness of breath, wheezing, 01:30 Abdomen/GI: Positive for abdominal pain, nausea and vomiting, Negative for hematemesis, 01:30 Neuro: Positive for dizziness, Negative for altered mental status, 01:30 All other systems are negative, cp Exam: 01:35 ECG was reviewed by the Attending Physician. cp 01:37 Constitutional: The patient appears in no acute distress, alert, awake, cp non-diaphoretic, non-toxic, well developed, well nourished, pale, 01:37 Head/Face: Normocephalic, atraumatic. cp 01:37 Eyes: Periorbital structures: appear normal, Conjunctiva: normal, no exudate, no injection, Sclera: no appreciated abnormality, Lids and lashes: appear normal, bilaterally, 01:37 ENT: External ear(s): are unremarkable, Nose: is normal, Mouth: Lips: moist, Oral mucosa: moist, Posterior pharynx: Airway: no evidence of obstruction, patent, 01:37 Chest/axilla: Inspection: normal, 01:37 Cardiovascular: Rate: normal, Rhythm: regular, Edema: is not appreciated, JVD: is not appreciated, 01:37 Respiratory: the patient does not display signs of respiratory distress, Respirations: normal, no use of accessory muscles, no retractions, Breath sounds: are clear throughout, no decreased breath sounds, no stridor, no wheezing, 01:37 Abdomen/GI: Inspection: abdomen appears normal, Palpation: soft, in all quadrants, moderate abdominal tenderness, in the epigastric area, rebound tenderness, is not appreciated, involuntary guarding, is not appreciated, 01:37 Neuro: Orientation: to person, place \\T\\ time. Mentation: is normal, Motor: moves all fours, strength is normal, Gait: is steady, Vital Signs: 01:22 BP 111 / 71; Pulse 86; Resp 18; Temp 97.6; Pulse Ox 100% ; Weight 72.57 kg; Height 5 vc1 ft. 10 in. ; Pain 0/10; 02:55 BP 127 / 106; Pulse 107; Resp 18; Pulse Ox 99% on R/A; br2 04:34 BP 132 / 84; Pulse 104; Resp 18; Pulse Ox 99% ; cp4 01:22 Body Mass Index 22.96 (72.57 kg, 177.8 cm) vc1 01:22 Pain Scale: Adult vc1 MDM: 01:15 Medical Screening Exam initiated cp 04:34 ED course: CT demonstrates possible upper gastric mass. WBC count mildly elevated sp3 however left shift and bandemia does exist. Will place on antibiotics and urged patient to follow-up with endoscopy/GI medicine. Will also discharge on Protonix and tramadol.. 07/15 02:02 Order name: CBC with Automated Diff EDMS 07/15 02:19 Interpretation: Normal except: WBC 11.30; CYNTHIA% 93.4; LYM% 3.0; MN% 3.2; NEUT A 10.6; cp LYMA 0.3. 07/15 02:02 Order name: Protime (+INR) EDMS 07/15 02:06 Order name: Basic Metabolic Panel EDOK 07/15 02:19 Interpretation: Normal except: GLUC 146; BUN 25; GFR 76. cp 07/15 02:06 Order name: Liver (Hepatic) Function EDOK 07/15 02:06 Order name: Troponin High Sensitivity EDOK 07/15 02:06 Order name: Magnesium EDOK 07/15 02:06 Order name: Lipase EDOK 07/15 02:06 Order name: Manual Differential EDOK 07/15 02:20 Interpretation: Normal except: BANDS [F] 21. cp 07/15 02:00 Order name: CT Head Brain wo Cont cp 07/15 02:06 Order name: Chest Single View EDOK 07/15 02:21 Order name: CT Abd/Pelvis - IV Contrast Only cp 07/15 01:22 Order name: EKG; Complete Time: 02:06 cp 07/15 01:22 Order name: Cardiac monitoring; Complete Time: 01:34 cp 07/15 01:22 Order name: EKG - Nurse/Tech; Complete Time: 01:34 cp 07/15 01:22 Order name: IV Saline Lock; Complete Time: :44 cp 07/15 01:22 Order name: Labs collected and sent; Complete Time: :43 cp 07/15 01:22 Order name: O2 Per Protocol; Complete Time: :34 cp 07/15 01:22 Order name: O2 Sat Monitoring; Complete Time: 01:35 cp EC:35 Rate is 99 beats/min. Rhythm is regular. ND interval is normal. QRS interval is normal. cp QT interval is normal. T waves are Inverted in lead aVR. Interpreted by me. Reviewed by me. Administered Medications: 01:43 Drug: NS 0.9% IV 1000 ml IV at 1 bolus Per protocol; to be given as a bolus over 60 cp4 minutes Route: IV; Rate: 1 bolus; Site: right antecubital; 04:42 Follow up: IV Status: Infusion continued cp4 01:44 Drug: Ondansetron IVP 4 mg IVP once; over 2 minutes Route: IVP; Site: right antecubital;cp4 04:42 Follow up: Response: No adverse reaction cp4 01:44 Drug: Famotidine IVP 20 mg IVP once; dilute with 10 mL 0.9% NaCl; give over 2 minutes cp4 Route: IVP; Site: right antecubital; 04:42 Follow up: Response: No adverse reaction cp4 Disposition Summary: 07/15/24 04:36 Discharge Ordered Notes: Location: Home sp3 Condition: Stable sp3 Diagnosis - Gastritis, possible gastric mass sp3 Followup: sp3 - With: Private Physician - When: Upon discharge from the Emergency Department - Reason: Continuance of care Followup: sp3 - With: Negrito Garcia MD - When: Upon discharge from the Emergency Department - Reason: Recheck today's complaints Discharge Instructions: - Discharge Summary Sheet sp3 - Gastritis, Adult sp3 Forms: - Medication Reconciliation Form sp3 - Antibiotic Education sp3 - Prescription Opioid Use sp3 - Patient Portal Instructions sp3 - Leadership Thank You Letter sp3 Prescriptions: - Flagyl 500 mg Oral tablet - take 1 tablet ORAL route every 8 hours for 7 days; 21 tablet; Refills: 0, sp3 Product Selection Permitted - Protonix 40 mg Oral Tablet - take 1 tablet ORAL route once daily; 30 tablet; Refills: 0, Product Selection sp3 Permitted - Cipro 500 mg Oral Tablet - take 1 tablet ORAL route every 12 hours for 7 days; 14 tablet; Refills: 0, sp3 Product Selection Permitted - Tramadol 50 mg Oral Tablet - take 1 tablet ORAL route every 8 hours as needed; 12 tablet; Refills: 0, sp3 Product Selection Permitted Signatures: Dispatcher [employer] EDMS Kris Greene PA PA cp Patel, Setul, MD MD sp3 Claire Lopez RN RN vc1 Monique Santiago cp4 Corrections: (The following items were deleted from the chart) 02:07 02:06 Chest Single View+RAD.RAD.BRZ ordered. EDMS EDMS 02:12 02:05 BASIC METABOLIC PANEL+C.LAB.BRZ ordered. EDMS EDMS 02:12 02:05 CBC+H.LAB.BRZ ordered. EDMS EDMS 02:12 02:05 HEPATIC FUNCTION+C.LAB.BRZ ordered. EDMS EDMS 02:12 02:05 MAGNESIUM+C.LAB.BRZ ordered. EDMS EDMS 02:12 02:05 PROTIME (+INR)+COAG.LAB.BRZ ordered. EDMS EDMS 02:12 02:05 Troponin High Sensitivity+C.LAB.BRZ ordered. EDMS EDMS 02:12 02:05 LIPASE+C.LAB.BRZ ordered. EDMS EDMS
--- NOTE | 2024-07-15 06:28 | RAD REPORT ---
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 COMPARISON: XR Chest 08/05/2022. FINDINGS: 1 view of the chest (AP portable projection) was obtained. Prior films were compared. There is mild hyperinflation. Mediastinum: The cardiomediastinal silhouette appears normal in size and shape. Lungs: There is minimal compressive atelectatic changes at right lung base. Heart: The heart is normal in size. Thoracic aorta: The thoracic aorta demonstrate to be normal. Pulmonary vasculature: The pulmonary mildly tortuous vasculature is normal in distribution. Pleura: The costophrenic angles demonstrate to be sharp. Osseous structures: The bony structures demonstrate mild posterior fixation device throughout the tho racic and lumbar spine for correction of scoliosis. Other: None. IMPRESSION: Minimal compressive atelectatic changes at the right lung base. Electronically signed by: Desean Bocanegra MD 07/15/2024 03:08 AM SILVICULTURIST Due to temporary technical issues with the [employer]ACS[employer] reporting system, reports are being maddison d by the in-house radiologist without review as a courtesy to ensure prompt reporting the interpreting radiologist is fully responsible for the content of the report. Transcribed Date/Time: 07/15/2024 6:27 AM
[2024-07-15 09:03] VITALS: TEMP 97.6
[2024-07-15 09:06] VITALS: O2SAT 99
[2024-07-15 09:14] VITALS: BP 132/84
--- OUTSIDE RECORDS SUMMARY | 2024-07-16 02:08 | XMS REPORT | Continuity of Care Document ---
Author Name Unknown Address [address] [facility] [place] [address] [facility] thconnect Address [address] [facility] [place] [address] Care Team Providers Care Battery Stacker Name Role Phone ANUEL PARSON Attending Clinician Unavailab TELLO Bowser Attending Clinician Unavailable LAB90 Attending Clinician Unavailable LIAM CHOWDARY Attending Clinician UnavailSANTIAGO Younger Attending Clinician Unavailable BETO ORTIZ Attending Clinician UnavailMARGARITA Beavres Attending Clinician Unavailab RUDY Rice Attending Clinician Unavailable ZULEIMA ESCOBAR Attending Clinician Unavaila eda WILSON MD Attending Clinician Unavailab donavon SORIANO, TECH 1 Attending Clinician Unavailable ARTUR RUTH Attending Clinician Unav ailable MARIA DE JESUS7 Attending Clinician Unavailable LAURY VASQUEZ Attending Clinician Unavailable PROVIDER, VIDEOVISITALEJANDRA Attending Clinician Unav ailable SURESH THOMPSON Attending Clinician Unavailable BRENT ORTIZ Attending Clinician Unavailable WAYNE WARD Attending Clinician Unavailable MIKALA GANDHI Attending Clinician Unavailab GURJIT Bell Attending Clinician Unavailable HUMERA TSANG Attending Clinician Unava ilable Payers Payer Name Policy Type Policy Number Effective Date Expirati on Date Source AETNA ANASTASIIA [facility] SILVER S O CURTAIN FITTER 94 ON 9 [id number] 2023 00:00:00 BCBS 2 [id number] 2024 00:00:00 Problems Condition Name Condition Details Condition Category Status Onset Date Resolution Date Last Treatment Date Treating Clinician Comments Source Seasonal allergies Seasonal allergies Disease Active -30 00:00: 00 Carolin Seybold - Externa l Mild major depression Mild major depression Disease Active - 00:00: 00 Carolin Seybold - Externa l JOEL (obstructi ve sleep apnea) JOEL (obstructi ve sleep apnea) Disease Active -24 00:00: 00 Carolin Seybold - Externa l Mild major depression Mild major depression Disease Active 24 00:00: 00 Carolin Seybold - Externa l Snoring Snoring Disease Active 10-09 00:00: 00 Carolin Seybold - Externa l Moderate episode of recurrent major depressive disorder Moderate episode of recurrent major depressive disorder Disease Active - 00:00: 00 Carolin Seybold - Externa l Moderate episode of recurrent major depressive disorder Moderate episode of recurrent major depressive disorder Disease Active -25 00:00: 00 Carolin Seybold - Externa l Well adult exam Well adult exam Disease Active - 00:00: 00 Carolin Seybold - Externa l Family history of thyroid disease Family history of thyroid disease Disease Active -15 00:00: 00 Carolin Seybold - Externa l Family history of hypertensi on Family history of hypertensi on Disease Active -15 00:00: 00 Carolin Seybold - Externa l Hyperlipid emia Hyperlipid emia Disease Active 2-15 00:00: 00 Carolin Seybold - Externa l Family history of coronary artery disease Family history of coronary artery disease Disease Active 2-15 00:00: 00 Carolin Seybold - Externa l Rash and nonspecifi c skin eruption Rash and nonspecifi c skin eruption Disease Active -15 00:00: 00 Carolin Seybold - Externa l Allergies, Adverse Reactions, Alerts Allergy Name Allergy Type Status Severity Reaction(s) Onset Date Inactive Date Treating Clinician Comments Source Adhesive Propensi ty to adverse reaction s Active Rash 2015-06 00:00: 00 Carolin Miguela l Latex Propensi ty to adverse reaction s Active Rash 2015-06 00:00: 00 Carolin Caban - Externa l Social History Social Habit Start Date Stop Date Quantity Comments Source Gender identity Lana rosmery Caban - External Sexual orientation Hortensia salgado Crowold - External Alcoholic beverage intake 2024-05-06 00:00:00 2024-05-06 00:00:00 Lifetime non-drinker (finding) Carolingeetha Mariaold - External Alcohol intake 2023-09-10 00:00:00 2023-09-10 00:00:00 Lifetime non-drinker (finding) Carolin Caban - External History of Social function 2023-03-05 00:00:00 2023-03-05 00:00:00 Carolin Caban - External Tobacco use and exposure 2022-09-05 00:00:00 2022-09-05 00:00:00 Smokeless tobacco non-user Carolin Caban - External Sex 2022-07-05 21:19:27 2022-07-05 21:19:27 Male (finding) Carolin Caban - External Sex assigned at 1980 00:00:00 1980 00:00:00 Carolin Caban - External Smoking Status Start Date Stop Date Source Never smoked tobacco Carolin Caban - External Medications Ordered Medication Name Filled Medication Name Start Date Stop Date Current Medication? Ordering Clinician Indication Dosage Frequency Signature (SIG) Comments Components Source Erythromyci n 5 MG/GM ophthalmic Ointment 06-28 00:00: 00 Yes [id number] Apply a 1 cm strip to bilateral lower eyelids 3 times per day for 5 days. Carolin Miguela chema Sertraline HCl 25 MG oral Tablet 2023-06 00:00: 00 Yes [id number] 25mg QD Take 1 tablet (25 mg total) by mouth daily. Carolin Beasley Externa l FLUTICASONE PROPIONATE, NASAL, 50 MCG/ACT nasal Suspension 2023-06 00:00: 00 Yes [id number] 50ug QD Use 1 spray (50 mcg total) in each nostril daily. Carolin bear Benzonatate 200 MG oral Capsule 2023-06 1-19 00:00: 00 05-14 05:59 :00 Yes [id number] 200mg Q.[id number] 3D Take 1 capsule (200 mg total) by mouth 3 times daily as needed for cough for up to 7 days. Carolin bear Cetirizine (ZYRTEC) 10 MG oral Tablet 2023-06 00:00: 00 Yes [id number] 10mg QD Take 1 tablet (10 mg total) by mouth daily. Carolin bear Cetirizine HCl 10 MG oral Capsule 03-17 00:00: 00 Yes [id number] 10mg QD Take 1 capsule (10 mg total) by mouth daily. Carolin bear Mupirocin (BACTROBAN) 2 % apply externally Ointment 03-17 00:00: 00 Yes [id number] 1{appli cation} Q.5D Apply 1 Applicatio n topically 2 times daily. Carolin bear FLUTICASONE PROPIONATE, NASAL, 50 MCG/ACT nasal Suspension 03-17 00:00: 00 03-17 00:00 :00 No [id number] 100ug QD Use 2 sprays (100 mcg total) in each nostril daily. Carolin bear Sertraline HCl 25 MG oral Tablet 11-08 00:00: 00 Yes [id number] 25mg QD Take 1 tablet (25 mg total) by mouth daily. Carolin bear Sildenafil Citrate 25 MG oral Tablet 11-08 00:00: 00 Yes [id number] 25mg QD Take 1 tablet (25 mg total) by mouth daily as needed for erectile dysfunctio n. Carolin bear Tadalafil 5 MG oral Tablet 24 00:00: 00 11-08 00:00 :00 No [id number] 5mg QD Take 1 tablet (5 mg total) by mouth daily as needed for erectile dysfunctio n. Carolin bear FLUTICASONE PROPIONATE, NASAL, 50 MCG/ACT nasal Suspension 4-18 00:00: 00 Yes [id number] 50ug Use 1 spray (50 mcg total) in each nostril daily. Carolin bear Sertraline HCl 25 MG oral Tablet -18 00:00: 00 11-08 00:00 :00 No [id number] 25mg Take 1 tablet (25 mg total) by mouth daily. Carolin bear FLUTICASONE PROPIONATE, NASAL, 50 MCG/ACT nasal Suspension 3-25 00:00: 00 Yes [id number] 50ug Use 1 spray (50 mcg total) in each nostril daily. Carolin bear Bupropion HCL XL 150 MG OR TB24 3-25 00:00: 00 Yes [id number] 150mg Take 1 tablet (150 mg total) by mouth daily. Carolin bear Misc Natural Products (Colon Cleanser) oral Capsule 08-02 10:10: 38 08-02 00:00 :00 No Take by mouth YESENIA 7 CLEANSER Carolin bear Doxycycline Hyclate 100 MG oral Tablet 15 00:00: 00 Yes [id number] 100mg Take 1 tablet (100 mg total) by mouth 2 times daily. Carolin bear FLUTICASONE PROPIONATE, NASAL, 50 MCG/ACT nasal Suspension 15 00:00: 00 Yes [id number] 50ug Use 1 spray (50 mcg total) in each nostril daily. Carolin bear Benzonatate 100 MG oral Capsule - 00:00: 00 03-08 04:59 :00 No [id number] 100mg Q.[id number] 3D Take 1 capsule (100 mg total) by mouth 3 times daily as needed for cough for up to 10 days. Carolin bear Amoxicillin 875 MG oral Tablet 9-10 00:00: 00 02-25 00:00 :00 No 875mg Take 1 tablet (875 mg total) by mouth 2 times daily for 7 days. Carolin bear methylPREDN ISolone 4 MG oral Tablet Therapy Pack 02-20 00:00: 00 08-02 00:00 :00 No [id number] 1{jessy} Take 1 jessy by mouth See Admin Instructio ns Use as directed. Carolin bear Pseudoeph-B romphen-DM 30-2-10 MG/5ML oral Syrup 02-20 00:00: 00 08-02 00:00 :00 No [id number] 10mL Q.25D Take 10 mL by mouth 4 times daily as needed. Carolin bear Mupirocin (BACTROBAN) 2 % apply externally Ointment 12-30 00:00: 00 08-02 00:00 :00 No [id number] Apply 1 applicatio n. topically 3 times daily Carolin bear Cephalexin 500 MG oral Capsule 12-30 00:00: 00 02-25 00:00 :00 No [id number] 500mg Take 1 capsule (500 mg total) by mouth 4 times daily Carolin bear Misc Natural Products (Colon Cleanser) oral Capsule 12-08 13:05: 56 Yes Take by mouth YESENIA 7 CLEANSER Carolin bear Na Sulfate-K Sulfate-Mg Sulf (SUPREP BOWEL PREP KIT) 17.5-3.13-1 .6 GM/177ML oral Solution 12-08 00:00: 00 08-02 00:00 :00 No [id number] Instructio ns provided to patient. Follow instructio ns provided by provider. Carolin bear Silver sulfADIAZIN E (SSD) 1 % apply externally Cream 10-12 00:00: 00 12-08 00:00 :00 No 1{packa ge} 1 package Carolin bear Benzonatate (Tessalon Perles) 100 MG oral Capsule 10-04 00:00: 00 12-08 00:00 :00 No [id number] 100mg Q.[id number] 3D Take 1 capsule (100 mg total) by mouth 3 times daily as needed for cough for up to 10 days Carolin bear Oxymetazoli ne HCl (NASAL DECONGESTAN T) 0.05 % nasal Solution 10-04 00:00: 00 12-08 00:00 :00 No [id number] 2{spray } Q.5D Use 2 sprays in each nostril 2 times daily as needed for congestion (nose bleed) Carolin Abreu l Immunizations Ordered Immunization Name Filled Immunization Name Date Status Comments Source Tdap- (Boostrix, Adacel) Unknown Completed Carolin Caban - External Tdap- (Boostrix, Adacel) Unknown Completed Carolin Caban - External Tdap- (Boostrix, Adacel) Unknown Completed Carolin Caban - External Tdap- (Boostrix, Adacel) Unknown Completed Carolin Caban - External Tdap- (Boostrix, Adacel) Unknown Completed Carolin Caban - External Tdap- (Boostrix, Adacel) Unknown Completed Carolin Caban - External Tdap- (Boostrix, Adacel) Unknown Completed Carolin Caban - External Tdap- (Boostrix, Adacel) Unknown Completed Carolin Caban - External Influenza Virus Vaccine, Unspecified Formulation Unknown Completed Carolin Caban - External Vital Signs Vital Name Observation Time Observation Value Comments S ource Systolic blood pressure 2024-03-17 18:20:00 116 mm[Hg] Carolin Sanchez ld - External Diastolic blood pressure 2024-03-17 18:20:00 80 mm[Hg] Carolin Sanchez ld - External Heart rate 2024-03-17 18:20:00 79 /min Marie Caban - External Body temperature 2024-03-17 18:20:00 36.61 Katerina Carolin Caban - External Respiratory rate 2024-03-17 18:20:00 15 /min Carolin Caban - External Body height 2024-03-17 18:20:00 180.3 cm Lana Caban - External Body weight 2024-03-17 18:20:00 74.844 kg Lana ey Seybold - External BMI 2024-03-17 18:20:00 23.01 kg/m2 Lana ey Seybold - External Systolic blood pressure 2023-11-09 12:46:00 112 mm[Hg] Carolin Seybo ld - External Diastolic blood pressure 2023-11-09 12:46:00 68 mm[Hg] Carolin Seybo ld - External Heart rate 2023-11-09 12:46:00 68 /min Kelse y Seybold - External Body temperature 2023-11-09 12:46:00 36 Katerina Carolin Seybold - External Respiratory rate 2023-11-09 12:46:00 14 /min Carolin Seybold - External Body height 2023-11-09 12:46:00 180.3 cm Lana ey Seybold - External Body weight 2023-11-09 12:46:00 73.029 kg Lana ey Seybold - External BMI 2023-11-09 12:46:00 22.45 kg/m2 Lana ey Seybold - External Systolic blood pressure 2023-10-10 13:28:00 118 mm[Hg] Carolin Seybo ld - External Diastolic blood pressure 2023-10-10 13:28:00 68 mm[Hg] Carolin Seybo ld - External Heart rate 2023-10-10 13:28:00 72 /min Kelse y Seybold - External Body temperature 2023-10-10 13:28:00 36.67 Katerina Carolin Seybold - External Respiratory rate 2023-10-10 13:28:00 16 /min Carolin Seybold - External Body height 2023-10-10 13:28:00 180.3 cm Lana ey Seybold - External Body weight 2023-10-10 13:28:00 72.179 kg Lana ey Seybold - External BMI 2023-10-10 13:28:00 22.19 kg/m2 Lana ey Seybold - External Systolic blood pressure 2023-09-10 13:06:00 104 mm[Hg] Carolin Seybo ld - External Diastolic blood pressure 2023-09-10 13:06:00 68 mm[Hg] Carolin Seybo ld - External Heart rate 2023-09-10 13:06:00 72 /min Kelse y Seybold - External Body temperature 2023-09-10 13:06:00 36.67 Katerina Carolin Seybold - External Respiratory rate 2023-09-10 13:06:00 16 /min Carolin Seybold - External Body height 2023-09-10 13:06:00 180.3 cm Lana ey Seybold - External Body weight 2023-09-10 13:06:00 72.802 kg Lana ey Seybold - External BMI 2023-09-10 13:06:00 22.39 kg/m2 Lana ey Seybold - External Oxygen saturation in Arterial blood by Pulse oximetry 2023-09-10 13:06:00 98 /min Carolin Seybo ld - External Systolic blood pressure 2023-08-02 16:04:00 110 mm[Hg] Carolin Seybo ld - External Diastolic blood pressure 2023-08-02 16:04:00 68 mm[Hg] Carolin Seybo ld - External Heart rate 2023-08-02 16:04:00 72 /min Kelse y Seybold - External Body temperature 2023-08-02 16:04:00 36.78 Katerina Carolin Seybold - External Respiratory rate 2023-08-02 16:04:00 16 /min Carolin Seybold - External Body height 2023-08-02 16:04:00 180.3 cm Lana ey Seybold - External Body weight 2023-08-02 16:04:00 73.596 kg Lana ey Seybold - External BMI 2023-08-02 16:04:00 22.63 kg/m2 Lana ey Seybold - External Oxygen saturation in Arterial blood by Pulse oximetry 2023-08-02 16:04:00 98 /min Carolin Seybo ld - External Systolic blood pressure 2022-12-08 18:01:00 124 mm[Hg] Carolin Seybo ld - External Diastolic blood pressure 2022-12-08 18:01:00 78 mm[Hg] Carolin Seybo ld - External Heart rate 2022-12-08 18:01:00 101 /min Kelse y Seybold - External Body temperature 2022-12-08 18:01:00 36.22 Katerina Carolin Seybold - External Respiratory rate 2022-12-08 18:01:00 20 /min Carolin Seybold - External Body height 2022-12-08 18:01:00 180.3 cm Lana ey Seybold - External Body weight 2022-12-08 18:01:00 75.569 kg Lana ey Seybold - External BMI 2022-12-08 18:01:00 23.24 kg/m2 Lana ey Seybold - External Oxygen saturation in Arterial blood by Pulse oximetry 2022-12-08 18:01:00 98 /min Carolin Seybo ld - External Systolic blood pressure 2022-09-27 15:03:00 114 mm[Hg] Carolin Seybo ld - External Diastolic blood pressure 2022-09-27 15:03:00 70 mm[Hg] Carolin Seybo ld - External Heart rate 2022-09-27 15:03:00 74 /min Kelse y Seybold - External Body temperature 2022-09-27 15:03:00 36.44 Katerina Carolin Seybold - External Respiratory rate 2022-09-27 15:03:00 16 /min Carolin Seybold - External Body height 2022-09-27 15:03:00 177.8 cm Lana ey Seybold - External Body weight 2022-09-27 15:03:00 73.392 kg Lana ey Seybold - External BMI 2022-09-27 15:03:00 23.22 kg/m2 Lana ey Seybold - External Oxygen saturation in Arterial blood by Pulse oximetry 2022-09-27 15:03:00 98 /min Carolin Seybo ld - External Systolic blood pressure 2022-09-06 14:48:00 128 mm[Hg] Carolin Seybo ld - External Diastolic blood pressure 2022-09-06 14:48:00 82 mm[Hg] Carolin Seybo ld - External Heart rate 2022-09-06 14:48:00 84 /min Kelse y Seybold - External Body temperature 2022-09-06 14:48:00 36.28 Katerina Carolin Seybold - External Respiratory rate 2022-09-06 14:48:00 15 /min Carolin Seybold - External Body height 2022-09-06 14:48:00 177.8 cm Lana botello Seybold - External Body weight 2022-09-06 14:48:00 73.483 kg Lana ey Seybold - External BMI 2022-09-06 14:48:00 23.24 kg/m2 Lana ey Seybold - External Encounters Start Date/Time End Date/Time Encounter Type Admission Type Attending [facility] Care Department Encounter ID Source 2024-09-19 08:30:00 2024-09-19 08:30:00 [id number] [facility] 16:30:00 2024-07-17 16:30:00 [facility] [id number] [facility]24-[facility]-16 09:00:00 2024-07-16 09:00:00 Outpatient TELLO HOFFMAN [id number] [facility] 2024-07-15 11:05:00 2024-07-15 11:05:00 Outpatient AGUILAR CAROLIN YE [id number] [facility] 2024-07-14 08:00:00 2024-07-14 08:00:00 Outpatient ANUEL PARSON [id number] [facility] 2024-07-10 00:00:00 2024-07-10 00:00:00 Outpatient LIAM CHOWDARY [id number] [facility] 2024-06-28 18:30:00 2024-06-28 18:30:00 Outpatient SANTIAGO ZABALA [id number] [facility] 2024-06-13 00:00:00 2024-06-13 00:00:00 Outpatient [facility]EL [facility] [id number] [facility] 2024-05-08 00:00:00 2024-05-08 00:00:00 Outpatient [facility] [id number] [facility] 2024-05-06 16:45:00 2024-05-06 16:45:00 Outpatient BETO ORTIZ [id number] [facility] 2024-05-06 16:15:00 2024-05-06 16:15:00 Outpatient MARGARITA FRIEND CAROLIN YE [id number] [facility] 2024-04-08 00:00:00 2024-04-08 00:00:00 Outpatient ANUEL PARSON CAROLIN YE [id number] [facility] 2024-04-02 16:30:00 2024-04-02 16:30:00 Outpatient RUDY THOMPSON CAROLIN YE [id number] [facility] 2024-03-17 13:30:00 2024-03-17 13:30:00 Outpatient ANUEL PARSON CAROLIN YE [id number] [facility] 2024-01-15 00:00:00 2024-01-15 00:00:00 Outpatient ZULEIMA ESCOBAR [id number] [facility] 2024-01-01 09:30:00 2024-01-01 09:30:00 Outpatient ANUEL PARSON CAROLIN YE [id number] [facility] 2023-12-19 15:30:00 2023-12-19 15:30:00 Outpatient ANUEL PARSON CAROLIN YE [id number] [facility] 2023-11-26 00:00:00 2023-11-26 00:00:00 Outpatient ZULEIMA ESCOBAR [id number] [facility] 2023-11-13 00:00:00 2023-11-13 00:00:00 Outpatient MD CAROLIN HUTCHINSON [id number] [facility] 2023-11-09 08:00:00 2023-11-09 08:00:00 Outpatient DELMA PARSONLEANNE YE [id number] [facility] 2023-11-06 00:00:00 2023-11-06 00:00:00 Outpatient [facility]IMA [facility]OBAR [id number] [facility] 15:30:00 2023 15:30:00 Outpatient RHONDA SORIANO [id number] [facility] 2023-10-23 08:30:00 2023-10-23 08:30:00 Outpatient ZULEIMA ESCOBAR CAROLIN YE [id number] [facility] 2023-10-23 00:00:00 2023-10-23 00:00:00 Outpatient CAROLIN YE [id number] [facility] 2023-10-23 00:00:00 2023-10-23 00:00:00 Outpatient MD [facility]OLIN [facility]UTCHINSON [id number] [facility] 2023-10-19 00:00:00 2023-10-19 00:00:00 Outpatient MD [facility]IN [facility]UTCHINSON [id number] [facility] 2023-10-19 00:00:00 2023-10-19 00:00:00 Outpatient ARTUR RUTH [id number] [facility] 2023-10-10 09:00:00 2023-10-10 09:00:00 Outpatient ANUEL PARSON [id number] [facility] 2023-10-08 13:15:00 2023-10-08 13:15:00 Outpatient TRED47 CAROLIN YE [id number] [facility] 2023-10-08 13:15:00 2023-10-08 13:15:00 Outpatient TRED4Maggie YE [id number] [facility] 2023-10-04 14:25:00 2023-10-04 14:25:00 Outpatient ARTUR RUTH [id number] [facility] 2023-10-04 13:00:00 2023-10-04 13:00:00 Outpatient TRED4Maggie YE [id number] [facility]in [facility] 2023-10-04 00:00:00 2023-10-04 00:00:00 Outpatient ANUEL PARSON [id number] [facility] 2023-10-02 00:00:00 2023-10-02 00:00:00 Outpatient ANUEL PARSON [id number] [facility] 2023-09-10 09:15:00 2023-09-10 09:15:00 Outpatient LAB90 CAROLIN YE [id number] [facility] 2023-09-10 08:30:00 2023-09-10 08:30:00 Outpatient ANUEL PARSON CAROLIN YE [id number] [facility] 2023-08-02 11:15:00 2023-08-02 11:15:00 Outpatient LAB90 CAROLIN CAROLIN [id number] [facility] 2023-08-02 10:30:00 2023-08-02 10:30:00 Outpatient ANUEL PARSON CAROLIN YE [id number] [facility] 2023-02-26 11:30:00 2023-02-26 11:30:00 Outpatient LAURY VASQUEZ [id number] [facility] 2023-02-25 17:00:00 2023-02-25 17:00:00 Outpatient DENY MORALES [id number] [facility] 2023-02-25 12:15:00 2023-02-25 12:15:00 Outpatient SURESH THOMPSON [id number] [facility] 2023-02-20 18:15:00 2023-02-20 18:15:00 Outpatient BRENT ORTIZ [id number] [facility] 2023-02-13 00:00:00 2023-02-13 00:00:00 Outpatient WAYNE WARD [id number] [facility] 2022-12-30 14:30:00 2022-12-30 14:30:00 Outpatient MIKALA GANDHI [id number] [facility] 2022-12-14 00:00:00 2022-12-14 00:00:00 Outpatient WAYNE WARD [id number] [facility] 2022-12-08 14:00:00 2022-12-08 14:00:00 Outpatient WAYNE WARD [id number] [facility] 2022-10-16 15:00:00 2022-10-16 15:00:00 Outpatient GURJIT YOST [id number] [facility] 2022-10-06 00:00:00 2022-10-06 00:00:00 Outpatient CAROLIN YE [id number] [facility] 2022-10-06 00:00:00 2022-10-06 00:00:00 Outpatient HUMERA TSANG [id number] [facility] 2022-10-04 16:45:00 2022-10-04 16:45:00 Outpatient LIAM CHOWDARY CAROLIN YE [id number] [facility] 2022-09-27 10:00:00 2022-09-27 10:00:00 Outpatient HUMERA TSANG [id number] [facility] 2022-09-11 15:35:00 2022-09-11 15:35:00 Outpatient LAB90 CAROLIN YE [id number] [facility] 2022-09-11 00:00:00 2022-09-11 00:00:00 Outpatient HUMERA TSANG [id number] [facility] 2022-09-11 00:00:00 2022-09-11 00:00:00 Outpatient HUMERA TSANG [id number] [facility] 2022-09-08 00:00:00 2022-09-08 00:00:00 Outpatient HUMERA TSANG [id number] [facility] 2022-09-07 00:00:00 2022-09-07 00:00:00 Outpatient CAROLIN YE [id number] [facility] 2022-09-06 11:50:00 2022-09-06 11:50:00 Outpatient LAB90 CAROLIN YE [id number] [facility] 2022-09-06 10:00:00 2022-09-06 10:00:00 Outpatient HUMERA TSANG [id number] [facility]
--- NOTE | 2024-07-16 12:32 | EKG ---
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
== END 2024-07-15 04:43 | disposition home or self-care (01) ==
LOC: ER 00:41
DX: K29.70 Gastritis, unspecified, without bleeding (principal); R19.06 Epigastric swelling, mass or lump
CPT/HCPCS: 96361; 93005; 85025; 80048; 36415; 83735; 85610; 80076; 84484; 83690; 70450; 74177; 71045; 96375; 96374; 99284; Q9967; J2405; J7030